=== PATIENT | male | born 1945 | race Caucasian/White ===

== ENCOUNTER 2023-08-31 20:03 | Inpatient (IN) ==
[2023-08-31 20:56] LABS: Alanine Aminotransferase 16 U/L (7-52); Albumin Globulin Ratio 1.8 (0.9-2); Albumin Level 4.8 gm/dl (3.4-5.0); Alkaline Phosphatase 62 U/L (34-104); Anion Gap 12 (3-11); Aspartate Aminotransferase 42 U/L (13-39); Bilirubin,Total 0.8 mg/dl (0.2-1.0); Blood Urea Nitrogen 20 mg/dl (6-23); Carbon Dioxide 24 mmol/L (21-32); Chloride 97 mmol/L (98-107); Est GFR (African American) 97.8 ml/min; Est GFR (Non-African American) 84.4 ml/min; Globulin 2.7 gm/dl (2.5-4.0); Glucose 173 mg/dl (70-99(Fasting)); Lipase 21 U/L (11-82); Potassium 3.6 mmol/L (3.5-5.1); Sodium 133 mmol/L (136-145); Total Protein 7.5 gm/dl (6.0-8.3)
[2023-08-31 21:00] LABS: Basophils # (auto) 0.03 K/uL (0.00-0.20); Basophils % (auto) 0.4 %; Eosinophils # (auto) 0.02 K/uL (0.00-0.50); Eosinophils % (auto) 0.3 %; Hematocrit (blood only) 40.5 % (42.0-52.0); Immature Granulocytes # (auto) 0.01 K/uL (0.01-0.20); Immature Granulocytes % (auto) 0.1 %; Lymphocytes # (auto) 0.59 K/uL (1.20-3.40); Lymphocytes % (auto) 8.5 %; Mean Corpuscular Hgb Conc 34.6 g/dL (32.0-36.0); Mean Platelet Volume 9.9 fL (9.4-12.4); Monocytes # (auto) 0.34 K/uL (0.11-0.59); Monocytes % (auto) 4.9 %; Neutrophils # (auto) 5.99 K/uL (1.40-6.50); Neutrophils % (auto) 85.8 %; Platelet Count 177 K/uL (130-400); RDW Coefficient of Variation 12.7 % (11.5-14.5); RDW Standard Deviation 39.1 fL (36.4-46.3); Red Blood Count 4.82 M/uL (4.70-6.10); White Blood Count 6.98 K/ul (4.8-10.8)
[2023-08-31 23:29] LABS: Appearance Urine Clear (Clear); Bacteria Urine Automated None Seen (None Seen); Bilirubin Urine Negative (Negative); Blood Urine 1+ (Negative); Cast Urine Automated 0-2 /lpf (0-2); Color Urine Yellow; Epithelial Cell Urine Auto 0-2 /hpf (0-2); Glucose Urine UA 2+ (Negative); Ketones Urine 1+ (Negative); Leukocyte Esterase Urine Negative (Negative); Nitrite Urine Negative (Negative); Protein Urine 1+ (Negative); RBC Urine Automated 0-2 /hpf (0-2); Specific Gravity Urine 1.025 (1.000-1.030); Urobilinogen Urine Negative (Negative); WBC Urine Automated 0-5 /hpf (0-5); pH Urine 5.5 (4.5-7.5)
--- NOTE | 2023-08-31 23:48 | Emergency Department Note ---
Impression & Plan Abdominal pain, acute, Volvulus ED Provider Note NAME: LEEANNA [id number] ODETTE AGE: 78 SEX: Male INFORMANT: Patient ED PROVIDER(S): Mor Perales MD CHIEF COMPLAINT: Abdominal pain PLAN: Disposition: Taken emergently to the OR Outpatient prescription management: none Referral: none MEDICAL DECISION MAKING: Patient presented because of acute abdominal pain. His CBC was unremarkable. Minimal elevation of AST. Glucose was mildly elevated at 173. ECG did not show any acute ischemic change. Urinalysis was negative. Due to his pain complaints patient was given a dose of Zofran as well as morphine. He was noted to be hypertensive and stated he did take his medication today. Patient was sent for CT imaging. Pt was found to have a developing obstruction due to a volvulus. Discussed with stat rad radiology. PT reassess. NGT ordered. Consulted with General Surgery employee relations manager, Dr. Millan. She will see patient expeditiously in the ED. Pt was taken emergently to the OR for surgical intervention. I refer you to the EMR for further details. Care/management discussed with: marketing traffic manager Level of care consideration(s): After review of the information above and other included data, I feel the patient requires escalation of care to admission. Triage Nursing notes: reviewed and agree them. Vital Signs: reviewed and remarkable for HTN Additional History obtained from: none Chronic Medical/Social Conditions affecting care: incarceration Prior/ Outside/ External records reviewed: none Differential Diagnosis: Appendicitis, infections, diverticulitis, UTI, obstruction, mesenteric ischemia, aortic pathology, inflammatory bowel disease, renal colic, PUD, pancreatitis, biliary pathology, hernia, volvulus, constipation, as well as other pathologies. Diagnostics, independently interpreted by me: ECG: Twelve-lead ECG was sinus rhythm with PACs at 67 bpm. LVH. Decreased amplitude in the T wave anteriorly when compared to 17 Oct 1999. Cardiac Monitoring: Cardiac monitoring ordered by me: The patient was placed on continuous cardiac monitoring and observed. It revealed a normal sinus rhythm at 78 beats per minute without ectopy or evidence of dysrhythmia. Medical decision rules: none Imaging studies: CT as above HPI: 78 year old Male arrives for evaluation of abdominal pain. This started today per the patient and is in the mid abdomen. The patient also notes the following associated symptoms, 2 days since last normal bowel movement. Patient did have a small bowel movement today but states that is not unusual. He does have some mild nausea. The patient has found no relieving factors. Current pain is rated as 6/10. Patient notes hernia repair but no other significant intra-abdominal surgeries. Patient does note that he feels somewhat dizzy today due to the pain. Pt denies LOC, headache, fevers, chills, diaphoresis, visual changes, neck pain, chest pain, breathing difficulties, vomiting back pain, melena, hematochezia, urinary symptoms, numbness, weakness, lymphadenopathy, rash, or other complaints. . PAST MEDICAL HISTORY: See Below, blood pressure PAST SURGICAL HISTORY: See Below, hernia repair SOCIAL HISTORY: See Below, incarcerated HOME MEDICATIONS: See Below ALLERGIES: See Below VITALS: See Below PHYSICAL EXAMINATION: GENERAL: Awake, alert, well-appearing, in no distress HENT: Normocephalic, atraumatic. Oropharynx unremarkable. EYES: Normal conjunctiva. Sclera non-icteric. NECK: Inspection normal. Non-tender. Supple. No nuchal rigidity. FROM. No masses. RESPIRATORY: Clear to auscultation. No wheezes. No rales. Normal respiratory effort. CARDIAC: Normal rate. Normal rhythm. No murmurs. No rubs. Extremities warm and well perfused. Pulses equal. No JVD. GI: Soft, non-distended. No epigastric/supraumbilical tenderness to palpation. No rebound or guarding. No masses. RECTAL: Deferred. MUSCULOSKELETAL: Atraumatic. Chest examination reveals no tenderness. The back is symmetrical on inspection without obvious abnormality. There is no CVA tenderness to palpation. No joint edema. LOWER EXTREMITIES: Calves are equal size bilaterally and non-tender. 1+ pedal edema. No discoloration. NEURO: Normal sensorium. No sensory or motor deficits noted. SKIN: No rash or jaundice noted. PROCEDURES: none CRITICAL CARE: I have personally spent 30 minutes of critical care time in the direct management of this patient. This includes bedside care, interpretation of diagnostic studies, and testing, discussion with consultants, patient, and other required patient management activities. These minutes are in excess of all separately billable procedures. OBSERVATION NOTE: none Past Med/Surg History Medical History (Updated 09/02/23 @ 21:04 by Mor Perales MD) Throat cancer High cholesterol High blood pressure Social History Smoking Status: Former smoker Hx Alcohol Use: No Hx Substance Use: No Preferred Language: Yi Communication Ability: Effective Organic Extractions Technician Required: No Beliefs That Will Affect Care: None Feels Safe at Home: Yes Allergies Allergies Allergy/AdvReac Type Severity Reaction Status Date / Time No Known Allergies Allergy Verified 01/01/19 11:57 Home Meds Home Medications Medication Instructions Recorded Confirmed amlodipine 10 mg tablet 10 mg PO DAILY 01/01/19 09/01/23 atorvastatin 10 mg tablet 10 mg PO HS 01/01/19 09/01/23 lisinopril 20 1 tab PO DAILY 01/01/19 09/01/23 mg-hydrochlorothiazide 25 mg tablet metoprolol tartrate 25 mg tablet 12.5 mg PO BID 01/01/19 09/01/23 naproxen 500 mg tablet,delayed 500 mg PO DAILY Pain 01/01/19 09/01/23 release omeprazole 20 mg capsule,delayed 20 mg PO DAILY 01/01/19 09/01/23 release tamsulosin 0.4 mg capsule 0.4 mg PO DAILY 01/01/19 09/01/23 Bacmin 1 PO DAILY 09/01/23 Lasix 20 mg PO DAILY 09/01/23 09/01/23 Results & Data (ED) Vital Signs Vital Signs - 24 hr 08/31/23 20:08 08/31/23 23:13 08/31/23 23:13 Temperature 36 C L Temperature Source Temporal Artery Scan Pulse Rate 68 94 H Pulse Rate [Apical] 89 Respiratory Rate 19 18 22 Respiratory Effort / Characteristics Non-Labored Spontaneous Respiratory Depth Normal Blood Pressure 147/86 H Blood Pressure [Right Arm] 204/119 H Blood Pressure Mean 106 Blood Pressure Mean [Right Arm] 147 Pulse Oximetry 96 97 97 Oxygen Delivery Method Room Air Room Air Room Air Sepsis Recent Fever Within 48 Hours No Sepsis New/Unexplained Change in Mental Status N/A Sepsis Action Taken by Nursing No Action Required 08/31/23 23:24 Temperature Temperature Source Pulse Rate 78 Pulse Rate [Apical] Respiratory Rate Respiratory Effort / Characteristics Respiratory Depth Blood Pressure Blood Pressure [Right Arm] Blood Pressure Mean Blood Pressure Mean [Right Arm] Pulse Oximetry Oxygen Delivery Method Sepsis Recent Fever Within 48 Hours Sepsis New/Unexplained Change in Mental Status Sepsis Action Taken by Nursing Laboratory Data 09/02/23 11:58 09/02/23 15:39 Lab Results 08/31/23 08/31/23 Range/Units 20:23 23:15 WBC 6.98 (4.8-10.8) K/ul RBC 4.82 (4.70-6.10) M/uL Hgb 14.0 (14.0-18.0) g/dl Hct 40.5 L (42.0-52.0) % MCV 84.0 (80.0-100.0) fL MCH 29.0 (25.0-34.0) pg MCHC 34.6 (32.0-36.0) g/dL RDW Std Deviation 39.1 (36.4-46.3) fL RDW Coeff of Shanelle 12.7 (11.5-14.5) % Plt Count 177 (130-400) K/uL MPV 9.9 (9.4-12.4) fL Immature Gran % (Auto) 0.1 % Neut % (Auto) 85.8 % Lymph % (Auto) 8.5 % Bowman % (Auto) 4.9 % Eos % (Auto) 0.3 % Baso % (Auto) 0.4 % Neut # (Auto) 5.99 (1.40-6.50) K/uL Lymph # (Auto) 0.59 L (1.20-3.40) K/uL Bowman # (Auto) 0.34 (0.11-0.59) K/uL Eos # (Auto) 0.02 (0.00-0.50) K/uL Baso # (Auto) 0.03 (0.00-0.20) K/uL Immature Gran # (Auto) 0.01 (0.01-0.20) K/uL Sodium 133 L (136-145) mmol/L Potassium 3.6 (3.5-5.1) mmol/L Chloride 97 L (98-107) mmol/L Carbon Dioxide 24 (21-32) mmol/L Anion Gap 12 H (3-11) BUN 20 (6-23) mg/dl Creatinine 0.80 (0.6-1.4) mg/dl Est Cr Clr Drug Dosing Not Reportable Est GFR ( Amer) 97.8 ml/min Est GFR (Non-Af Amer) 84.4 ml/min BUN/Creatinine Ratio 25.0 H (10-20) Glucose 173 H (70-99(Fasting)) mg/dl Calcium 10.0 (8.6-10.3) mg/dl Magnesium 2.2 (1.7-2.4) mg/dl Total Bilirubin 0.8 (0.2-1.0) mg/dl AST 42 H (13-39) U/L ALT 16 (7-52) U/L Alkaline Phosphatase 62 (34-104) U/L Total Protein 7.5 (6.0-8.3) gm/dl Albumin 4.8 (3.4-5.0) gm/dl Globulin 2.7 (2.5-4.0) gm/dl Albumin/Globulin Ratio 1.8 (0.9-2) Lipase 21 (11-82) U/L TSH 4.629 H (0.300-4.500) uIu/ml Free T4 1.18 (0.61-1.60) ng/dl Urine Color Yellow Urine Appearance Clear (Clear) Urine pH 5.5 (4.5-7.5) Ur Specific [place] 1.025 (1.000-1.030) Urine Protein 1+ H (Negative) Urine Glucose (UA) 2+ H (Negative) Urine Ketones 1+ H (Negative) Urine Blood 1+ H (Negative) Urine Nitrite Negative (Negative) Urine Bilirubin Negative (Negative) Urine Urobilinogen Negative (Negative) Ur Leukocyte Esterase Negative (Negative) Urine WBC (Auto) 0-5 (0-5) /hpf Urine RBC (Auto) 0-2 (0-2) /hpf U Hyaline Cast (Auto) 0-2 (0-2) /lpf U Epithel Cells (Auto) 0-2 (0-2) /hpf Urine Bacteria (Auto) None Seen (None Seen) Administered Medications Atorvastatin Calcium (Atorvastatin 10 Mg Tab) 10 mg PO HS ZULEIMA Stop: 10/02/23 20:59 Last Admin: 09/02/23 20:23 Dose: 10 mg Documented By: [id number] Heparin Sodium (Porcine) (Heparin Sod 5,000 Unit/0.5 Ml Vial) 5,000 units SQ Q12 ZULEIMA Stop: 10/01/23 08:59 Last Admin: 09/02/23 20:24 Dose: 5,000 units Documented By: [id number] Admin: 09/02/23 08:51 Dose: 5,000 units Documented By: AZUL Co-signed By: ERIC Admin: 09/01/23 20:48 Dose: 5,000 units Documented By: Admin: 09/01/23 08:25 Dose: 5,000 units Documented By: Piperacillin Sod/Tazobactam (Sod 4.5 gm/ Dextrose) 100 mls @ 25 mls/hr IV Q8H ZULEIMA; Protocol Stop: 09/05/23 07:59 Last Infusion: 09/02/23 19:59 Dose: Infused Documented By: [id number] Admin: 09/02/23 15:49 Dose: 25 mls/hr Documented By: Infusion: 09/02/23 12:51 Dose: Infused Documented By: Admin: 09/02/23 08:49 Dose: 25 mls/hr Documented By: AZUL Co-signed By: ERIC Infusion: 09/02/23 04:04 Dose: Infused Documented By: Admin: 09/02/23 00:08 Dose: 25 mls/hr Documented By: Infusion: 09/01/23 19:44 Dose: Infused Documented By: Admin: 09/01/23 16:12 Dose: 25 mls/hr Documented By: Infusion: 09/01/23 11:17 Dose: Infused Documented By: Admin: 09/01/23 07:17 Dose: 25 mls/hr Documented By: Metoprolol Tartrate (Metoprolol Tartrate 25 Mg Tab) 12.5 mg PO BID ZULEIMA Stop: 10/02/23 20:59 Last Admin: 09/02/23 20:23 Dose: 12.5 mg Documented By: [id number] Sodium Zirconium Cyclosilicate (Sodium Zirconium Cyclosilicate 10 Gm Packet) 10 gm PO TID ZULEIMA Stop: 09/04/23 14:01 Last Admin: 09/02/23 20:25 Dose: 10 gm Documented By: [id number] Discontinued Medications Bupivacaine HCl (Bupivacaine 0.5 % 5 Mg/1 Ml Mpf 30ml Vial) Confirm Administered Dose 60 ml .ROUTE .STK-MED ONE Stop: 09/01/23 02:50 Last Admin: 09/01/23 04:10 Dose: 40 ml Documented By: VIKY Dextrose (Dextrose 50% 50 Ml Syringe) 50 ml IV NOW STA Stop: 09/02/23 14:53 Last Admin: 09/02/23 15:19 Dose: 50 ml Documented By: Furosemide (Furosemide 40 Mg/4 Ml Vial) 40 mg IV ONE ONE Stop: 09/01/23 08:41 Last Admin: 09/01/23 09:02 Dose: 40 mg Documented By: MS Furosemide (Furosemide 40 Mg/4 Ml Vial) 40 mg IV ONE ONE Stop: 09/02/23 15:28 Last Admin: 09/02/23 15:48 Dose: 40 mg Documented By: Piperacillin Sod/Tazobactam (Sod 4.5 gm/ Dextrose) 100 mls @ 200 mls/hr IV NOW ONE; Protocol Stop: 09/01/23 02:25 Last Infusion: 09/01/23 05:48 Dose: Infused Documented By: Admin: 09/01/23 02:22 Dose: 200 mls/hr Documented By: [id number] Metronidazole (Flagyl) 500 mg in 100 mls @ 100 mls/hr IV NOW STA; Protocol Stop: 09/01/23 02:55 Last Admin: 09/01/23 07:07 Dose: Not Given Documented By: MS Pantoprazole Sodium 40 mg/ (Syringe) 10 mls @ 5 mls/min IV DAILY@1100 ZULEIMA Stop: 10/01/23 10:59 Last Admin: 09/02/23 11:06 Dose: 5 mls/min Documented By: AZUL Co-signed By: ERIC Admin: 09/01/23 10:52 Dose: 5 mls/min Documented By: MS Potassium Chloride/Sodium Chloride (Normal Saline W/20 Meq Kcl) 20 meq in 1,000 mls @ 50 mls/hr IV .Q20H ZULEIMA; Protocol Stop: 10/01/23 06:14 Last Infusion: 09/01/23 10:49 Dose: Infused Documented By: Admin: 09/01/23 08:24 Dose: 50 mls/hr Documented By: MS Sodium Chloride (Nss) 1,000 mls @ 100 mls/hr IV .Q10H ZULEIMA Stop: 09/01/23 21:29 Last Admin: 09/02/23 15:17 Dose: 100 mls/hr Documented By: Infusion: 09/02/23 15:17 Dose: Infused Documented By: Admin: 09/02/23 06:16 Dose: 50 mls/hr Documented By: Infusion: 09/02/23 06:16 Dose: Infused Documented By: Admin: 09/01/23 11:47 Dose: 50 mls/hr Documented By: Insulin Human Regular 10 units (/ Syringe) 10 mls @ 3 mls/sec IV ONE STA Stop: 09/02/23 14:58 Last Admin: 09/02/23 15:19 Dose: 3 mls/sec Documented By: Co-signed By: ELVIA Ioversol (Optiray 320 100ml) 100 ml IV ONCE ONE Stop: 09/01/23 00:03 Last Admin: 09/01/23 00:03 Dose: 91 ml Documented By: ROCHELLE Metoprolol Tartrate (Metoprolol Tartrate 1 Mg/Ml Vial) 2.5 mg IV NOW STA Stop: 09/01/23 05:14 Last Admin: 09/01/23 05:20 Dose: 2.5 mg Documented By: TERI Metoprolol Tartrate (Metoprolol Tartrate 1 Mg/Ml Vial) Confirm Administered Dose 5 mg IV .STK-MED ONE Stop: 09/01/23 05:20 Last Admin: 09/01/23 05:22 Dose: Not Given Documented By: TERI Metoprolol Tartrate (Metoprolol Tartrate 1 Mg/Ml Vial) 2.5 mg IV Q6 ZULEIMA Stop: 10/01/23 11:59 Last Admin: 09/02/23 11:49 Dose: 2.5 mg Documented By: Admin: 09/02/23 06:16 Dose: Not Given Documented By: Admin: 09/02/23 00:09 Dose: 2.5 mg Documented By: Admin: 09/01/23 18:00 Dose: 2.5 mg Documented By: Admin: 09/01/23 11:43 Dose: Not Given Documented By: Morphine Sulfate (Morphine Sulfate 2 Mg/Ml Carp) 2 mg IV NOW STA Stop: 08/31/23 23:39 Last Admin: 09/01/23 00:49 Dose: 2 mg Documented By: OLY Ondansetron HCl (Ondansetron Inj 2 Mg/Ml 2 Ml Vial) 4 mg IV NOW STA Stop: 08/31/23 23:39 Last Admin: 09/01/23 00:49 Dose: 4 mg Documented By: OLY Discharge Plan Visit Data Chief Complaint: Abdominal Pain Stated Complaint: LIGHTHEADED, ABD CRAMPS ED Provider: Mor Perales Discharge Problem: Abdominal pain, acute, Volvulus Patient Disposition: Admitted As Inpatient Discharge Instructions Interventions: ED Discharge Assessment Last Done: 09/01/23 01:54
[2023-09-01] MEDS: OPTIRAY 320 100ml IV ONE (00:03)
--- NOTE | 2023-09-01 00:40 | CT Scan Report ---
Exam(s): CT ABDOMEN + PELVIS With Contrast IV Amt: 91 ML OPTIRAY 320 EXAM: CT Abdomen and Pelvis With Intravenous Contrast CLINICAL HISTORY: mid abd pain. TECHNIQUE: Axial computed tomography images of the abdomen and pelvis with intravenous contrast. CTDI is 27.33 mGy and DLP is 1333.36 mGy-cm. Automated exposure control was utilized for the study. A dose lowering technique was utilized adhering to the principles of ALARA. CONTRAST: Patient received 91 ML OPTIRAY 320 of IV contrast COMPARISON: No relevant prior studies available. FINDINGS: Lung bases: Unremarkable. No mass. No consolidation. Mediastinum: Hiatal hernia. ABDOMEN: Liver: An 11 mm hepatic cyst is noted involving segment IVb the junction of segment 5. Gallbladder and bile ducts: A noncalcified gallstone is noted in the fundus of the gallbladder measuring 1.[address] evidence for gallbladder wall thickening or biliary dilatation. Pancreas: Unremarkable. No mass. No ductal dilation. Spleen: Unremarkable. No splenomegaly. Adrenals: Unremarkable. No mass. Kidneys and ureters: The kidneys demonstrate normal enhancement without hydronephrosis or pyelonephritis. No obstructive nephrolithiasis. Cortical cysts are noted bilaterally with the largest cyst in the anterior midpole measuring 14 mm. Stomach and bowel: Abnormal fluid dilation of several distal small bowel loops in the abdomen and pelvis. In addition, an abnormally fluid dilated cecum and proximal ascending colon is identified abnormally located in the left upper quadrant, measuring up to 10.1 cm in diameter. There is abnormal swirling of the mesenteric vasculature with narrowing of the superior mesenteric vein at this level with asymmetric mesenteric edema involving the abnormal fluid dilated distal small bowel and proximal colon. Postsurgical changes involving a small bowel loop involving the left inferior abdomen. PELVIS: Appendix: Not clearly delineated Bladder: Unremarkable. No mass. Reproductive: Unremarkable as visualized. ABDOMEN and PELVIS: Intraperitoneal space: Mild predominantly perihepatic fluid. No loculation. Mild free fluid adjacent to the abnormal small bowel loops in the abdomen. No free air. Bones/joints: Multilevel degenerative changes noted throughout the included thoracolumbar spine. No acute osseous abnormality. No dislocation. Soft tissues: Mild free fluid extends into the right inguinal hernia. The overlying soft tissues demonstrate mild subcutaneous fat stranding suggesting edema. Vasculature: Atherosclerotic calcification of the aorta and iliac arteries. Lymph nodes: Unremarkable. No enlarged lymph nodes. IMPRESSION: Abnormal fluid dilation of several distal small bowel loops in the abdomen and pelvis. In addition, an abnormally fluid dilated cecum and proximal ascending colon is identified abnormally located in the left upper quadrant, measuring up to 10.1 cm in diameter. There is abnormal swirling of the mesenteric vasculature with narrowing of the superior mesenteric vein at this level with asymmetric mesenteric edema involving the abnormal fluid dilated distal small bowel and proximal colon. 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 No pneumatosis or pneumoperitoneum noted this time. Emergent surgical consultation is recommended however. Communications: Call Doctor Volvulus Electronically signed by: Randy Ying MD 09/01/23 00:38 AM
[2023-09-01] MEDS: MoRPHine SULFATE 2 MG/ML CARP IV STA (00:49)
[2023-09-01] MEDS: ONDANSETRON INJ 2 MG/ML 2 ML VIAL IV STA (00:49)
--- NOTE | 2023-09-01 01:08 | Anesthesiology Consultation ---
Date of Service September 01, 2023 Assessment & Plan (1) Encounter for pre-operative examination: Chart Review Chart Review: Patient NOT seen in Pre Admission Testing Consults Requested none History Height/Weight Height: 5 ft 10 in Weight: 96.5 kg Allergies Allergy/AdvReac Type Severity Reaction Status Date / Time No Known Allergies Allergy Verified 01/01/19 11:57 Medications Home Medications Medication Instructions Recorded Confirmed Last Taken amlodipine 10 mg tablet 10 mg PO DAILY 01/01/19 01/01/19 Unknown aspirin 81 mg tablet,delayed 81 mg PO DAILY 01/01/19 01/01/19 Unknown release atorvastatin 10 mg tablet 10 mg PO HS 01/01/19 01/01/19 Unknown calcium polycarbophil 625 mg 625 mg PO BID 01/01/19 01/01/19 Unknown tablet (Fiber Laxative (calcium polycarbophil)) lisinopril 20 1 tab PO DAILY 01/01/19 01/01/19 Unknown mg-hydrochlorothiazide 25 mg tablet metoprolol tartrate 25 mg tablet 12.5 mg PO BID 01/01/19 01/01/19 Unknown naproxen 500 mg tablet,delayed 500 mg PO DAILY PRN Pain 01/01/19 01/01/19 Unknown release omeprazole 20 mg capsule,delayed 20 mg PO DAILY 01/01/19 01/01/19 Unknown release tamsulosin 0.4 mg capsule 0.4 mg PO DAILY 01/01/19 01/01/19 Unknown Past Medical History Medical History (Updated 09/01/23 @ 01:08 by Pardeep Fountain DO) Throat cancer High cholesterol High blood pressure Social History Smoking Status: Unknown if ever smoked Physical Exam Vital Signs Last Vital Signs Temp 96.8 F L 08/31/23 20:08 Pulse 78 08/31/23 23:24 Resp 22 08/31/23 23:13 BP 204/119 H 08/31/23 23:13 Pulse Ox 97 08/31/23 23:13 O2 Del Method Room Air 08/31/23 23:13 Testing Laboratory Results 08/31/23 20:23 08/31/23 20:23 Urine Color Yellow 08/31/23 23:15 Urine Appearance Clear (Clear) 08/31/23 23:15 Urine pH 5.5 (4.5-7.5) 08/31/23 23:15 Ur Specific Nelson 1.025 (1.000-1.030) 08/31/23 23:15 Urine Protein 1+ (Negative) H 08/31/23 23:15 Urine Glucose (UA) 2+ (Negative) H 08/31/23 23:15 Urine Ketones 1+ (Negative) H 08/31/23 23:15 Urine Nitrite Negative (Negative) 08/31/23 23:15 Ur Leukocyte Esterase Negative (Negative) 08/31/23 23:15 Urine WBC (Auto) 0-5 /hpf (0-5) 08/31/23 23:15 Urine RBC (Auto) 0-2 /hpf (0-2) 08/31/23 23:15 U Hyaline Cast (Auto) 0-2 /lpf (0-2) 08/31/23 23:15 U Epithel Cells (Auto) 0-2 /hpf (0-2) 08/31/23 23:15 Urine Bacteria (Auto) None Seen (None Seen) 08/31/23 23:15
[2023-09-01] MEDS ORDERED: fentaNYL citrate PF 100 MCG/2 ML VIAL ONE ×2 (01:24→02:36)
[2023-09-01] MEDS ORDERED: MIDAZOLAM HCL 1 MG/ML 2ML VIAL ONE (01:24)
[2023-09-01] MEDS ORDERED: SUCCINYLCHOLINE CHLORIDE 20 MG/ML 10 ML VIAL IV ONE (01:24)
[2023-09-01] MEDS ORDERED: ROCURONIUM BROMIDE 10 MG/ML 5 ML VIAL IV ONE (01:24)
[2023-09-01] MEDS ORDERED: PROPOFOL IV EMULSION 10 MG/ML 20 ML VIAL IV ONE (01:24)
[2023-09-01] MEDS ORDERED: LIDOCAINE 2% 2 ML VIAL/AMP(20MG/ML) INFIL ONE (01:24)
[2023-09-01] MEDS ORDERED: fentaNYL citrate PF 100 MCG/2 ML VIAL IV PRN (01:36)
[2023-09-01] MEDS ORDERED: ONDANSETRON INJ 2 MG/ML 2 ML VIAL IV PRN ×2 (01:36→05:47)
[2023-09-01] MEDS ORDERED: ePHEDrine sulfate 50 MG/ML AMP IV PRN (01:36)
[2023-09-01] MEDS ORDERED: ATROPINE SULFATE 0.1 MG/ML 10ML SYR IV PRN (01:36)
--- NOTE | 2023-09-01 01:49 | History & Physical Report ---
Date of Service September 01, 2023 Assessment & Plan (1) Volvulus of intestine: Plan: 78-year-old man who presents with acute onset abdominal pain with imaging suggestive of a volvulus with his cecum lying in the left upper quadrant. We discussed exploratory laparotomy with possible bowel resection and possible ostomy. We reviewed risks of , heart attack, stroke, bleeding, infection, injury to other structures, leakage of the intestine, and postoperative ileus. He has consented to proceed. He will be taken urgently to the operating room tonight. Consent was signed. History of Present Illness Chief Complaint: abdominal pain Primary Care Provider: TUNG Benton Ridgecassidy 78-year-old man with a history of a prior left inguinal hernia repair who presents to the emergency room complaining of the acute onset of central abdominal pain. The pain was severe intensity. It would come in waves. It was associated with nausea and vomiting. The pain was worse with movement. Taking a deep breath hurt. There were no relieving factors. He has noted decreased bowel movements in the last day or 2. His appetite is decreased. He has never had any similar episodes in the past. He denies any fevers or chills. CT scan in the emergency room room reveals evidence of a small bowel volvulus. Allergies Allergy/AdvReac Type Severity Reaction Status Date / Time No Known Allergies Allergy Verified 01/01/19 11:57 Home Medications Medication Instructions Recorded Confirmed Type amlodipine 10 mg tablet 10 mg PO DAILY 01/01/19 01/01/19 History aspirin 81 mg tablet,delayed 81 mg PO DAILY 01/01/19 01/01/19 History release atorvastatin 10 mg tablet 10 mg PO HS 01/01/19 01/01/19 History calcium polycarbophil 625 mg 625 mg PO BID 01/01/19 01/01/19 History tablet (Fiber Laxative (calcium polycarbophil)) lisinopril 20 1 tab PO DAILY 01/01/19 01/01/19 History mg-hydrochlorothiazide 25 mg tablet metoprolol tartrate 25 mg tablet 12.5 mg PO BID 01/01/19 01/01/19 History naproxen 500 mg tablet,delayed 500 mg PO DAILY PRN Pain 01/01/19 01/01/19 History release omeprazole 20 mg capsule,delayed 20 mg PO DAILY 01/01/19 01/01/19 History release tamsulosin 0.4 mg capsule 0.4 mg PO DAILY 01/01/19 01/01/19 History Past Med/Surg History Medical History (Updated 09/01/23 @ 01:55 by Kathleen Millan MD) Throat cancer High cholesterol High blood pressure Social History Smoking Status: Unknown if ever smoked Preferred Language: Lithuanian Feels Safe at Home: Yes Review of Systems Review of Systems: All systems reviewed & are unremarkable except as noted in HPI & below Ear, Nose, Mouth, Throat: s/p treatment for throat cancer Physical Exam Constitutional: WD/WN, vitals as above Eyes: + conjunctival abnormality (reddened) Neck: normal visual inspection and trachea midline Respiratory: normal respiratory effort, lungs clear to auscultation Cardiovascular: RRR, no murmur, no edema Gastrointestinal (Abdomen): Inspection/Auscultation: + abdomen distended and + hypoactive bowel sounds Percussion/Palpation: + abdomen tender (centrally), + guarding and abdomen soft Musculoskeletal: Extremities: extremities normal to inspection Neurologic: awake; no focal motor deficits Psychiatric: A+Ox3, euthymic affect Results & Data Results & Data Vital Signs (Past 12 Hours) Vital Signs Temp Pulse Pulse Resp BP BP Pulse Ox 09/01/23 01:00 88 19 176/108 H 97 08/31/23 23:24 78 08/31/23 23:13 89 22 204/119 H 97 08/31/23 23:13 94 H 18 97 08/31/23 20:08 36 C L 68 19 147/86 H 96 O2 Del Method 09/01/23 01:00 Room Air 08/31/23 23:24 08/31/23 23:13 Room Air 08/31/23 23:13 Room Air 08/31/23 20:08 Room Air Laboratory Results 08/31/23 08/31/23 Range/Units 23:15 20:23 WBC 6.98 (4.8-10.8) K/ul RBC 4.82 (4.70-6.10) M/uL Hgb 14.0 (14.0-18.0) g/dl Hct 40.5 L (42.0-52.0) % MCV 84.0 (80.0-100.0) fL MCH 29.0 (25.0-34.0) pg MCHC 34.6 (32.0-36.0) g/dL RDW Std Deviation 39.1 (36.4-46.3) fL RDW Coeff of Shanelle 12.7 (11.5-14.5) % Plt Count 177 (130-400) K/uL MPV 9.9 (9.4-12.4) fL Immature Gran % (Auto) 0.1 % Neut % (Auto) 85.8 % Lymph % (Auto) 8.5 % Gray % (Auto) 4.9 % Eos % (Auto) 0.3 % Baso % (Auto) 0.4 % Neut # (Auto) 5.99 (1.40-6.50) K/uL Lymph # (Auto) 0.59 L (1.20-3.40) K/uL Gray # (Auto) 0.34 (0.11-0.59) K/uL Eos # (Auto) 0.02 (0.00-0.50) K/uL Baso # (Auto) 0.03 (0.00-0.20) K/uL Immature Gran # (Auto) 0.01 (0.01-0.20) K/uL Sodium 133 L (136-145) mmol/L Potassium 3.6 (3.5-5.1) mmol/L Chloride 97 L (98-107) mmol/L Carbon Dioxide 24 (21-32) mmol/L Anion Gap 12 H (3-11) BUN 20 (6-23) mg/dl Creatinine 0.80 (0.6-1.4) mg/dl Est Cr Clr Drug Dosing Not Reportable Est GFR ( Amer) 97.8 ml/min Est GFR (Non-Af Amer) 84.4 ml/min BUN/Creatinine Ratio 25.0 H (10-20) Glucose 173 H (70-99(Fasting)) mg/dl Calcium 10.0 (8.6-10.3) mg/dl Total Bilirubin 0.8 (0.2-1.0) mg/dl AST 42 H (13-39) U/L ALT 16 (7-52) U/L Alkaline Phosphatase 62 (34-104) U/L Total Protein 7.5 (6.0-8.3) gm/dl Albumin 4.8 (3.4-5.0) gm/dl Globulin 2.7 (2.5-4.0) gm/dl Albumin/Globulin Ratio 1.8 (0.9-2) Lipase 21 (11-82) U/L Urine Color Yellow Urine Appearance Clear (Clear) Urine pH 5.5 (4.5-7.5) Ur Specific [place] 1.025 (1.000-1.030) Urine Protein 1+ H (Negative) Urine Glucose (UA) 2+ H (Negative) Urine Ketones 1+ H (Negative) Urine Blood 1+ H (Negative) Urine Nitrite Negative (Negative) Urine Bilirubin Negative (Negative) Urine Urobilinogen Negative (Negative) Ur Leukocyte Esterase Negative (Negative) Urine WBC (Auto) 0-5 (0-5) /hpf Urine RBC (Auto) 0-2 (0-2) /hpf U Hyaline Cast (Auto) 0-2 (0-2) /lpf U Epithel Cells (Auto) 0-2 (0-2) /hpf Urine Bacteria (Auto) None Seen (None Seen) Diagnostic Findings EXAM: CT Abdomen and Pelvis With Intravenous Contrast CLINICAL HISTORY: mid abd pain. TECHNIQUE: Axial computed tomography images of the abdomen and pelvis with intravenous contrast. CTDI is 27.33 mGy and DLP is 1333.36 mGy-cm. Automated exposure control was utilized for the study. A dose lowering technique was utilized adhering to the principles of ALARA. CONTRAST: Patient received 91 ML OPTIRAY 320 of IV contrast COMPARISON: No relevant prior studies available. FINDINGS: Lung bases: Unremarkable. No mass. No consolidation. Mediastinum: Hiatal hernia. ABDOMEN: Liver: An 11 mm hepatic cyst is noted involving segment IVb the junction of segment 5. Gallbladder and bile ducts: A noncalcified gallstone is noted in the fundus of the gallbladder measuring 1.[address] evidence for gallbladder wall thickening or biliary dilatation. Pancreas: Unremarkable. No mass. No ductal dilation. Spleen: Unremarkable. No splenomegaly. Adrenals: Unremarkable. No mass. Kidneys and ureters: The kidneys demonstrate normal enhancement without hydronephrosis or pyelonephritis. No obstructive nephrolithiasis. Cortical cysts are noted bilaterally with the largest cyst in the anterior midpole measuring 14 mm. Stomach and bowel: Abnormal fluid dilation of several distal small bowel loops in the abdomen and pelvis. In addition, an abnormally fluid dilated cecum and proximal ascending colon is identified abnormally located in the left upper quadrant, measuring up to 10.1 cm in diameter. There is abnormal swirling of the mesenteric vasculature with narrowing of the superior mesenteric vein at this level with asymmetric mesenteric edema involving the abnormal fluid dilated distal small bowel and proximal colon. Postsurgical changes involving a small bowel loop involving the left inferior abdomen. PELVIS: Appendix: Not clearly delineated Bladder: Unremarkable. No mass. Reproductive: Unremarkable as visualized. ABDOMEN and PELVIS: Intraperitoneal space: Mild predominantly perihepatic fluid. No loculation. Mild free fluid adjacent to the abnormal small bowel loops in the abdomen. No free air. Bones/joints: Multilevel degenerative changes noted throughout the included thoracolumbar spine. No acute osseous abnormality. No dislocation. Soft tissues: Mild free fluid extends into the right inguinal hernia. The overlying soft tissues demonstrate mild subcutaneous fat stranding suggesting edema. Vasculature: Atherosclerotic calcification of the aorta and iliac arteries. Lymph nodes: Unremarkable. No enlarged lymph nodes. IMPRESSION: Abnormal fluid dilation of several distal small bowel loops in the abdomen and pelvis. In addition, an abnormally fluid dilated cecum and proximal ascending colon is identified abnormally located in the left upper quadrant, measuring up to 10.1 cm in diameter. There is abnormal swirling of the mesenteric vasculature with narrowing of the superior mesenteric vein at this level with asymmetric mesenteric edema involving the abnormal fluid dilated distal small bowel and proximal colon. 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 No pneumatosis or pneumoperitoneum noted this time. Emergent surgical consultation is recommended however.
[2023-09-01] MEDS: PIPERACILLIN/TAZOBACTAM 4.5 GM in DEXTROSE 5% MINI-B 100 ML IV ONE (02:22)
[2023-09-01] MEDS ORDERED: VASOPRESSIN 20 UNIT/ML VIAL ONE (02:38)
[2023-09-01] MEDS ORDERED: PHENYLEPHRINE 100MCG/ML 10ML SYR IV ONE (02:38)
[2023-09-01] MEDS ORDERED: ePHEDrine sulfate 50 MG/5 ML SYR ONE (02:38)
[2023-09-01] MEDS ORDERED: SUGAMMADEX SODIUM 200 MG/2 ML VIAL IV ONE (03:57)
[2023-09-01] MEDS: BUPIVACAINE 0.5 % 5 MG/1 ML MPF 30ML VIAL ONE (04:10)
--- NOTE | 2023-09-01 04:27 | Operative Report ---
Post Operative Report Pre & Post Diagnosis Operation Date: 09/01/23 01:20 Pre-Op Diagnosis: Intestinal Volvulus Post-Op Diagnosis: cecal Volvulus I identified the patient and participated in the time-out.: Yes Procedure Operation Date: 09/01/23 01:20 Actual Procedures p Exploratory Laparotomy, Resection Right Colon of with Reanastomosis - Kathleen Millan MD Surgeon Kathleen Millan MD Channel Manager none Estimated Blood Loss 20 Findings Consistent with Post-Op Diagnosis Cecal volvulus. Evidence of prior partial small bowel resection. Adhesive bands to right upper quadrant. over 1 L cloudy fluid in abdomen Fluids 1300 cc Specimens right colon/ appendix Drains none Anesthesia Type General Complications none Disposition Accompanied Patient To Recovery: No Indications 78-year-old man who presented from [facility] with abdominal pain and lightheadedness. Imaging was suggestive of intestinal volvulus. He was consented for exploratory laparotomy and possible bowel resection. He denied any prior abdominal surgery although he did appear to have a very faint scar around the umbilicus. Description of Procedure The patient received Zosyn preoperatively he underwent placement of sequential compression devices and placement of a Torres catheter. He underwent induction of general endotracheal anesthesia. His abdomen was sterilely prepped and draped. A midline incision was made and the abdomen entered inferiorly as evidence of prior suture was noted around the umbilicus. Once the abdomen was sharply entered there was significant intra-abdominal fluid which was suctioned. The culture of this fluid was taken. The incision was then extended superiorly. The bowel was noted to be bluish tinged. The cecum was noted to be extremely distended and up over the stomach. This was reduced and on twisted. There were some adhesive bands coursing across the hepatic flexure of the colon from this volvulus. These were taken down. The mesentery of the small bowel was inspected to make sure there was no further twisting. The small bowel was run and evidence of a prior partial bowel resection was noted. The spot was chosen for division on the terminal ileum and this was divided with a firing of the JONNIE blue load 60 stapler. A spot was chosen for division up on the right colon below the hepatic flexure and this was divided with a firing of the JONNIE 60 stapler. The hepatic flexure was partially mobilized to allow for free air anastomosis. The laps were placed around the bowel. Bowel clamps were used. A [id number] functional end-to-end anastomosis was then created by using silk stay sutures to hold the bowel together. Enterotomies were made in both the terminal ileum and right colon and a JONNIE 80 stapler fired through this to create a new lumen. The defect itself was closed with a firing of the TA 90 stapler. The ends were oversewn with silk stitches. The mesenteric defect was closed with silk stitches. The the abdomen was irrigated with warm saline until the effluent was clear. The incision was then closed with 2 running looped #1 PDS sutures over a fish retractor. The 40 cc of half percent Marcaine were injected into the incision for local anesthesia. The nasogastric tube was checked to be in appropriate position. The skin was loosely closed with merari leaving small sections open which were packed with iodoform. A sterile dressing was applied. He was awakened and taken to recovery in stable condition. I attest to the content of the Intraoperative Record and any orders documented therein. Any exceptions are noted below.
--- NOTE | 2023-09-01 05:02 | Anesthesiology Progress Note ---
Date of Service September 01, 2023 Anesthesia Post Procedure Vital Signs Vital Signs: Temp Pulse Pulse Resp BP BP Pulse Ox 09/01/23 04:51 96.6 F L 81 14 184/99 H 100 09/01/23 04:35 97.7 F 83 18 152/88 H 100 09/01/23 01:00 88 19 176/108 H 97 08/31/23 23:24 78 08/31/23 23:13 89 22 204/119 H 97 08/31/23 23:13 94 H 18 97 08/31/23 20:08 96.8 F L 68 19 147/86 H 96 O2 Del Method O2 Flow Rate 09/01/23 04:51 Oxymask 5 09/01/23 04:35 Oxymask 10 09/01/23 01:00 Room Air 08/31/23 23:24 08/31/23 23:13 Room Air 08/31/23 23:13 Room Air 08/31/23 20:08 Room Air Pain Intensity Lower Abdomen: Pain Intensity: 3 Transfer of Care Handoff Completed per policy Notes Mental Status: alert / awake / arousable and participated in evaluation Patient Amnestic to Procedure: Yes Nausea / Vomiting: adequately controlled Pain: adequately controlled Airway Patency, RR, SpO2: stable & adequate BP & HR: stable & adequate Hydration State: stable & adequate Anesthetic Complications: no major complications apparent and Pt Satisfied with anesthetic care Notes: right hand IV infiltrated upon emergence/transfer to recovery, LR only fluids given through IV during infiltration, recovery made aware and new IV placed.
[2023-09-01] MEDS: METOPROLOL TARTRATE 1 MG/ML VIAL IV STA (05:20)
[2023-09-01] MEDS: METOPROLOL TARTRATE 1 MG/ML VIAL IV ONE (05:22)
[2023-09-01] MEDS ORDERED: MoRPHine SULFATE 2 MG/ML CARP IV PRN (05:47)
[2023-09-01] MEDS ORDERED: MoRPHine SULFATE 4 MG/ML 1 ML CARP\\VIAL IV PRN (05:47)
--- NOTE | 2023-09-01 05:59 | Hospitalist Consultation ---
Date of Consultation September 01, 2023 Assessment & Plan (1) Volvulus of intestine: Final Assessment and Recommendations as follows : Hypertensive urgency Cecal volvulus status post surgery hyperlipidemia, on statin Rx BPH, on Flomax GERD, on PPI chronic hyponatremia right tonsillar CA status post surgery/radiation Hyperglycemia rule out DM past tobacco abuse Dr. Millan of General Surgery agreeable to admission to medical telemetry unit to facilitate administration of parenteral beta-uri while patient strictly n.p.o. Check hemoglobin A1c DVT prophylaxis. Heparin subcu as per postop orders Thank you very much for this consultation. Dr. George will follow patient's progress. Text document was generated using [employer] voice recognition software. It may contain grammatical or spelling errors. Kindly contact undersigned for clarification of any documentation item in question. History of Present Illness Reason for Consultation: Medical management Requesting Physician: Dr. Millan Attending Physician: Kathleen Millan MD History of Present Illness PCP [facility] History obtained from patient and records. Medical history significant for hypertension, hyperlipidemia, BPH, GERD, chronic hyponatremia, right tonsillar CA status post surgery/radiation, past tobacco abuse. Last [facility] confinement 1999 under ENT service for right tonsillectomy and modified radical neck dissection for tonsillar cancer. Unremarkable postop course. 2 days history of achy central abdominal pain associated with nausea and dry heaving symptoms, constipation. Some chills at home. Denies chest pain, SOB. Admits to dizziness without headache symptoms. Patient brought to ER for evaluation. Highest SBP of 200s noted at the ER. CT showed cecal volvulus. Patient admitted by General Surgery. Patient underwent emergent ex lap, right colon resection with reanastomosis. SBP noted to be 180s at PACU. Patient denies headache, chest pain, SOB. Abdominal pain actually controlled as per patient. 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 Allergies Allergy/AdvReac Type Severity Reaction Status Date / Time No Known Allergies Allergy Verified 01/01/19 11:57 Home Medications Medication Instructions Recorded Confirmed Type amlodipine 10 mg tablet 10 mg PO DAILY 01/01/19 09/01/23 History atorvastatin 10 mg tablet 10 mg PO HS 01/01/19 09/01/23 History calcium polycarbophil 625 mg 625 mg PO BID 01/01/19 01/01/19 History tablet (Fiber Laxative (calcium polycarbophil)) lisinopril 20 1 tab PO DAILY 01/01/19 09/01/23 History mg-hydrochlorothiazide 25 mg tablet metoprolol tartrate 25 mg tablet 12.5 mg PO BID 01/01/19 09/01/23 History naproxen 500 mg tablet,delayed 500 mg PO DAILY Pain 01/01/19 09/01/23 History release omeprazole 20 mg capsule,delayed 20 mg PO DAILY 01/01/19 09/01/23 History release tamsulosin 0.4 mg capsule 0.4 mg PO DAILY 01/01/19 09/01/23 History Bacmin 1 DAILY 09/01/23 History Lasix PO DAILY 09/01/23 History Zostrix-HP 0.075 TID 09/01/23 History carboxymethylcellulose sodium 0.5 TID 09/01/23 History carboxymethylcellulose sodium 0.5 TID 09/01/23 History Patient History Medical History (Updated 09/01/23 @ 01:55 by Kathleen Millan MD) Throat cancer High cholesterol High blood pressure Social History Smoking Status: Former smoker Hx Alcohol Use: No Hx Substance Use: No Preferred Language: Portuguese 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 Beliefs That Will Affect Care: None Feels Safe at Home: Yes Review of Systems Review of Systems: As per HPI, all other systems reviewed and negative Physical Exam Physical Exam: GENERAL: Comfortable, pleasant, obese, no respiratory distress SKIN: Pallor, warm HEENT: Partial alopecia, pink palpebral conjunctivae, no ptosis, dry buccal mucosa, NGT in place NECK : Supple, no tenderness CHEST : Decreased breath sounds, no tenderness HEART : RRR, no obvious murmurs ABDOMEN: Dressing in place, some distention, minimal tenderness EXTREMITIES : No LE swelling/tenderness, no other conspicuous deformities noted NEUROLOGIC : Coherent, no facial asymmetry, no other gross focality Results & Data Results & Data Vital Signs (Past 12 Hours) Vital Signs Temp Pulse Pulse Resp BP BP Pulse Ox 09/01/23 05:30 36.4 C L 75 16 144/62 H 97 09/01/23 05:24 36.4 C L 71 13 163/83 H 97 09/01/23 05:15 36.4 C 85 16 161/86 H 96 09/01/23 05:05 36.3 C L 85 16 179/96 H 96 09/01/23 04:51 35.9 C L 81 14 184/99 H 100 09/01/23 04:35 36.5 C 83 18 152/88 H 100 09/01/23 01:00 88 19 176/108 H 97 08/31/23 23:24 78 08/31/23 23:13 89 22 204/119 H 97 08/31/23 23:13 94 H 18 97 08/31/23 20:08 36 C L 68 19 147/86 H 96 O2 Del Method O2 Flow Rate 09/01/23 05:30 Room Air 09/01/23 05:24 Oxymask 2 09/01/23 05:15 Oxymask 2 09/01/23 05:05 Oxymask 2 09/01/23 04:51 Oxymask 5 09/01/23 04:35 Oxymask 10 09/01/23 01:00 Room Air 08/31/23 23:24 08/31/23 23:13 Room Air 08/31/23 23:13 Room Air 08/31/23 20:08 Room Air Laboratory Results Laboratory Results WBC 6.98 K/ul (4.8-10.8) 08/31/23 20: RBC 4.82 M/uL (4.70-6.10) 08/31/23 20:23 Hgb 14.0 g/dl (14.0-18.0) 08/31/23 20: Hct 40.5 % (42.0-52.0) L 08/31/23 20: MCV 84.0 fL (80.0-100.0) 08/31/23 20:23 MCH 29.0 pg (25.0-34.0) 08/31/23 20: MCHC 34.6 g/dL (32.0-36.0) 08/31/23 20:23 RDW Std Deviation 39.1 fL (36.4-46.3) 08/31/23 20: RDW Coeff of Shanelle 12.7 % (11.5-14.5) 08/31/23 20: Plt Count 177 K/uL (130-400) 08/31/23 20: MPV 9.9 fL (9.4-12.4) 08/31/23 20: Immature Gran % (Auto) 0.1 % 08/31/23: Neut % (Auto) 85.8 % 08/31/23: Lymph % (Auto) 8.5 % 08/31/23: [place] % (Auto) 4.9 % 08/31/23 20: Eos % (Auto) 0.3 % 08/31/23 20: Baso % (Auto) 0.4 % 08/31/23: Neut # (Auto) 5.99 K/uL (1.40-6.50) 08/31/23: Lymph # (Auto) 0.59 K/uL (1.20-3.40) L 08/31/23: [place] # (Auto) 0.34 K/uL (0.11-0.59) 08/31/23: Eos # (Auto) 0.02 K/uL (0.00-0.50) 08/31/23: Baso # (Auto) 0.03 K/uL (0.00-0.20) 08/31/23 20: Immature Gran # (Auto) 0.01 K/uL (0.01-0.20) 08/31/23 20: Sodium 133 mmol/L (136-145) L 08/31/23 20:23 Potassium 3.6 mmol/L (3.5-5.1) 08/31/23 20: Chloride 97 mmol/L (98-107) L 08/31/23 20: Carbon Dioxide 24 mmol/L (21-32) 08/31/23 20:23 Anion Gap 12 (3-11) H 08/31/23 20: BUN 20 mg/dl (6-23) 08/31/23: Creatinine 0.80 mg/dl (0.6-1.4) 08/31/23 20: Est Cr Clr Drug Dosing Not Reportable 08/31/23 20: Est GFR ( Amer) 97.8 ml/min 08/31/23 20: Est GFR (Non-Af Amer) 84.4 ml/min 08/31/23 20:23 BUN/Creatinine Ratio 25.0 (10-20) H 08/31/23 20:23 Glucose 173 mg/dl (70-99(Fasting)) H 08/31/23 20:23 Calcium 10.0 mg/dl (8.6-10.3) 08/31/23 20:23 Total Bilirubin 0.8 mg/dl (0.2-1.0) 08/31/23 20:23 AST 42 U/L (13-39) H 08/31/23 20:23 ALT 16 U/L (7-52) 08/31/23 20:23 Alkaline Phosphatase 62 U/L (34-104) 08/31/23 20:23 Total Protein 7.5 gm/dl (6.0-8.3) 08/31/23 20:23 Albumin 4.8 gm/dl (3.4-5.0) 08/31/23 20:23 Globulin 2.7 gm/dl (2.5-4.0) 08/31/23 20:23 Albumin/Globulin Ratio 1.8 (0.9-2) 08/31/23 20:23 Lipase 21 U/L (11-82) 08/31/23 20:23 Urine Color Yellow 08/31/23 23:15 Urine Appearance Clear (Clear) 08/31/23 23:15 Urine pH 5.5 (4.5-7.5) 08/31/23 23:15 Ur Specific [place] 1.025 (1.000-1.030) 08/31/23 23:15 Urine Protein 1+ (Negative) H 08/31/23 23:15 Urine Glucose (UA) 2+ (Negative) H 08/31/23 23:15 Urine Ketones 1+ (Negative) H 08/31/23 23:15 Urine Blood 1+ (Negative) H 08/31/23 23:15 Urine Nitrite Negative (Negative) 08/31/23 23:15 Urine Bilirubin Negative (Negative) 08/31/23 23:15 Urine Urobilinogen Negative (Negative) 08/31/23 23:15 Ur Leukocyte Esterase Negative (Negative) 08/31/23 23:15 Urine WBC (Auto) 0-5 /hpf (0-5) 08/31/23 23:15 Urine RBC (Auto) 0-2 /hpf (0-2) 08/31/23 23:15 U Hyaline Cast (Auto) 0-2 /lpf (0-2) 08/31/23 23:15 U Epithel Cells (Auto) 0-2 /hpf (0-2) 08/31/23 23:15 Urine Bacteria (Auto) None Seen (None Seen) 08/31/23 23:15 Impressions Abdomen/Pelvis CT 08/31/23 23:37 CR Exam(s): CT ABDOMEN + PELVIS With Contrast IV Amt: 91 ML OPTIRAY 320 EXAM: CT Abdomen and Pelvis With Intravenous Contrast CLINICAL HISTORY: mid abd pain. TECHNIQUE: Axial computed tomography images of the abdomen and pelvis with intravenous contrast. CTDI is 27.33 mGy and DLP is 1333.36 mGy-cm. Automated exposure control was utilized for the study. A dose lowering technique was utilized adhering to the principles of ALARA. CONTRAST: Patient received 91 ML OPTIRAY 320 of IV contrast COMPARISON: No relevant prior studies available. FINDINGS: Lung bases: Unremarkable. No mass. No consolidation. Mediastinum: Hiatal hernia. ABDOMEN: Liver: An 11 mm hepatic cyst is noted involving segment IVb the junction of segment 5. Gallbladder and bile ducts: A noncalcified gallstone is noted in the fundus of the gallbladder measuring 1.[address] evidence for gallbladder wall thickening or biliary dilatation. Pancreas: Unremarkable. No mass. No ductal dilation. Spleen: Unremarkable. No splenomegaly. Adrenals: Unremarkable. No mass. Kidneys and ureters: The kidneys demonstrate normal enhancement without hydronephrosis or pyelonephritis. No obstructive nephrolithiasis. Cortical cysts are noted bilaterally with the largest cyst in the anterior midpole measuring 14 mm. Stomach and bowel: Abnormal fluid dilation of several distal small bowel loops in the abdomen and pelvis. In addition, an abnormally fluid dilated cecum and proximal ascending colon is identified abnormally located in the left upper quadrant, measuring up to 10.1 cm in diameter. There is abnormal swirling of the mesenteric vasculature with narrowing of the superior mesenteric vein at this level with asymmetric mesenteric edema involving the abnormal fluid dilated distal small bowel and proximal colon. Postsurgical changes involving a small bowel loop involving the left inferior abdomen. PELVIS: Appendix: Not clearly delineated Bladder: Unremarkable. No mass. Reproductive: Unremarkable as visualized. ABDOMEN and PELVIS: Intraperitoneal space: Mild predominantly perihepatic fluid. No loculation. Mild free fluid adjacent to the abnormal small bowel loops in the abdomen. No free air. Bones/joints: Multilevel degenerative changes noted throughout the included thoracolumbar spine. No acute osseous abnormality. No dislocation. Soft tissues: Mild free fluid extends into the right inguinal hernia. The overlying soft tissues demonstrate mild subcutaneous fat stranding suggesting edema. Vasculature: Atherosclerotic calcification of the aorta and iliac arteries. Lymph nodes: Unremarkable. No enlarged lymph nodes. IMPRESSION: Abnormal fluid dilation of several distal small bowel loops in the abdomen and pelvis. In addition, an abnormally fluid dilated cecum and proximal ascending colon is identified abnormally located in the left upper quadrant, measuring up to 10.1 cm in diameter. There is abnormal swirling of the mesenteric vasculature with narrowing of the superior mesenteric vein at this level with asymmetric mesenteric edema involving the abnormal fluid dilated distal small bowel and proximal colon. 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 No pneumatosis or pneumoperitoneum noted this time. Emergent surgical consultation is recommended however. Communications: Call Doctor Volvulus Electronically signed by: Randy iYng MD 09/01/23 00:38 AM Diagnostic Findings EKG as per my interpretation : Rate 65, NSR, normal axis, LVH, nonspecific T wave abnormalities
[2023-09-01] MEDS ORDERED: ACETAMINOPHEN 1,000 MG/100 ML VIAL IV PRN (06:17)
[2023-09-01 06:38] LABS: Magnesium 2.2 mg/dl (1.7-2.4)
[2023-09-01 06:46] LABS: Basophils # (auto) 0.01 K/uL (0.00-0.20); Basophils % (auto) 0.2 %; Hematocrit (blood only) 39.5 % (42.0-52.0); Hemoglobin 13.4 g/dl (14.0-18.0); Immature Granulocytes # (auto) 0.01 K/uL (0.01-0.20); Immature Granulocytes % (auto) 0.2 %; Lymphocytes # (auto) 0.38 K/uL (1.20-3.40); Lymphocytes % (auto) 8.1 %; Mean Corpuscular Hemoglobin 28.6 pg (25.0-34.0); Mean Corpuscular Hgb Conc 33.9 g/dL (32.0-36.0); Mean Corpuscular Volume 84.4 fL (80.0-100.0); Mean Platelet Volume 9.4 fL (9.4-12.4); Monocytes % (auto) 4.2 %; Neutrophils # (auto) 4.12 K/uL (1.40-6.50); Neutrophils % (auto) 87.3 %; Platelet Count 155 K/uL (130-400); RDW Coefficient of Variation 12.8 % (11.5-14.5); RDW Standard Deviation 39.7 fL (36.4-46.3); Red Blood Count 4.68 M/uL (4.70-6.10); White Blood Count 4.72 K/ul (4.8-10.8)
[2023-09-01 06:54] LABS: Thyroid Stimulating Hormone 4.629 uIu/ml (0.300-4.500)
[2023-09-01] MEDS: metroNIDAZOLE 500 MG/100 ML BAG IV STA (07:07)
[2023-09-01] MEDS: PIPERACILLIN/TAZOBACTAM 4.5 GM in DEXTROSE 5% MINI-B 100 ML IV SCH (07:17)
[2023-09-01 07:19] LABS: BUN Creatinine Ratio 23.7 (10-20); Calcium 9.1 mg/dl (8.6-10.3); Creatinine Clr Calc Pharmacy 90.4 ml/min; Est GFR (African American) 99.9 ml/min; Est GFR (Non-African American) 86.2 ml/min; Potassium 5.3 mmol/L (3.5-5.1)
--- NOTE | 2023-09-01 07:27 | XRay Report ---
KUB HISTORY: Status post placement of an enteric tube post NGT placement COMPARISON: CT 08/31/2023 FINDINGS: Distal tip of enteric tube projects over the midline lower chest. Distended air-filled loop s of bowel again noted. Contrast within the urinary bladder lumen. Cardiomegaly. No renal calculi. N o ureteral calculi. No pneumoperitoneum or pneumatosis. No fracture. IMPRESSION: 1. Distal tip of enteric tube projects over the midline lower chest, likely within the patient's smal l hiatal hernia. Advancement with follow-up imaging is needed. 2. Persistent bowel obstruction. ACT 112: Negative or not required by law. The above report was generated using voice recognition software. It may contain grammatical, syntax o r spelling errors. Electronically signed by: Mark Stafford M.D. 09/01/2023 7:25 AM
[2023-09-01 07:37] LABS: T4 Free Thyroxine 1.18 ng/dl (0.61-1.60)
--- NOTE | 2023-09-01 07:41 | XRay Report ---
XR chest 1V portable CLINICAL HISTORY: hyponatremia COMPARISON STUDY: No previous studies for comparison. FINDINGS: The tip of the nasogastric tube is difficult to visualize but is at least within the body o f the stomach. There is no pneumothorax or pleural effusion. There is no consolidation. No evidence f or pulmonary edema. No pulmonary nodules are identified although sensitivity is diminished given radi ographic technique. IMPRESSION: No acute cardiopulmonary findings. ACT 112: Negative or not required by law. Electronically signed by: George Arriaga M.D. 09/01/2023 7:40 AM
[2023-09-01 07:49] LABS: Estimated Average Glucose 114 mg/dl; Hemoglobin A1C 5.6 % (4.5-5.6)
[2023-09-01] MEDS: NSS + 20MEQ KCL 20 MEQ/1,000 ML BAG IV SCH (08:24)
[2023-09-01] MEDS: HEPARIN SOD 5,000 UNIT/0.5 ML VIAL SQ SCH (08:25)
[2023-09-01] MEDS: FUROSEMIDE 40 MG/4 ML VIAL IV ONE (09:02)
[2023-09-01] MEDS: PANTOprazole 40 MG in SYRINGE 0 ML IV SCH (10:52)
--- NOTE | 2023-09-01 11:15 | Surgery Progress Note ---
Date of Service September 01, 2023 Assessment & Plan (1) Volvulus of intestine: Plan: POD # 0 ex lap, right hemicolectomy AVSS NGT with minimal output no return of bowel function yet adequate urine output Plan: Continue pain management continue IV fluids continue NPO can have ice chips and mouth swabs continue NGT for today Continue ruiz OOB to chair today monitor labs continue medical management dr. Mccarty has seen and examined patient, agrees with above. Admission and Anticipated Discharge Date Admission Date: September 01, 2023 Subjective feeling okay pain controlled no n,v Physical Exam Constitutional: WD/WN, vitals as above cooperative and comfortable; no acute distress and not ill appearing Respiratory: normal respiratory effort; no respiratory distress and no labored breathing Gastrointestinal (Abdomen): Inspection/Auscultation: abdomen normal to inspection and + abdominal surgical incision (covered with clean intact dressing); abdomen not distended Percussion/Palpation: + abdomen tender (at midline incision site) and abdomen soft; no guarding, abdomen not rigid and abdomen not firm Skin: no rashes, warm and dry Psychiatric: A+Ox3, euthymic affect Results & Data Vital Signs (Past 12 Hours) Vital Signs Temp Pulse Pulse Resp BP BP Pulse Ox 09/01/23 10:52 37.0 C 92 H 19 99/66 L 95 09/01/23 08:17 86 19 115/68 97 09/01/23 07:16 36.4 C L 81 19 129/76 98 09/01/23 07:00 09/01/23 07:00 77 09/01/23 05:53 36.4 C L 74 18 146/83 H 96 09/01/23 05:30 36.4 C L 75 16 144/62 H 97 09/01/23 05:24 36.4 C L 71 13 163/83 H 97 09/01/23 05:15 36.4 C 85 16 161/86 H 96 09/01/23 05:05 36.3 C L 85 16 179/96 H 96 09/01/23 04:51 35.9 C L 81 14 184/99 H 100 09/01/23 04:35 36.5 C 83 18 152/88 H 100 09/01/23 01:00 88 19 176/108 H 97 08/31/23 23:24 78 08/31/23 23:13 89 22 204/119 H 97 08/31/23 23:13 94 H 18 97 O2 Del Method O2 Flow Rate 09/01/23 10:52 Nasal Cannula 2 09/01/23 08:17 Nasal Cannula 2 09/01/23 07:16 Nasal Cannula 2 09/01/23 07:00 Nasal Cannula 2 09/01/23 07:00 09/01/23 05:53 Room Air 09/01/23 05:30 Room Air 09/01/23 05:24 Oxymask 2 09/01/23 05:15 Oxymask 2 09/01/23 05:05 Oxymask 2 09/01/23 04:51 Oxymask 5 09/01/23 04:35 Oxymask 10 09/01/23 01:00 Room Air 08/31/23 23:24 08/31/23 23:13 Room Air 08/31/23 23:13 Room Air Laboratory Results 09/01/23 09/01/23 08/31/23 Range/Units 08:21 06:12 23:15 WBC 4.72 L (4.8-10.8) K/ul RBC 4.68 L (4.70-6.10) M/uL Hgb 13.4 L (14.0-18.0) g/dl Hct 39.5 L (42.0-52.0) % MCV 84.4 (80.0-100.0) fL MCH 28.6 (25.0-34.0) pg MCHC 33.9 (32.0-36.0) g/dL RDW Std Deviation 39.7 (36.4-46.3) fL RDW Coeff of Shanelle 12.8 (11.5-14.5) % Plt Count 155 (130-400) K/uL MPV 9.4 (9.4-12.4) fL Immature Gran % (Auto) 0.2 % Neut % (Auto) 87.3 % Lymph % (Auto) 8.1 % Green % (Auto) 4.2 % Eos % (Auto) 0.0 % Baso % (Auto) 0.2 % Neut # (Auto) 4.12 (1.40-6.50) K/uL Lymph # (Auto) 0.38 L (1.20-3.40) K/uL Green # (Auto) 0.20 (0.11-0.59) K/uL Eos # (Auto) 0.00 (0.00-0.50) K/uL Baso # (Auto) 0.01 (0.00-0.20) K/uL Immature Gran # (Auto) 0.01 (0.01-0.20) K/uL Sodium 136 (136-145) mmol/L Potassium 5.3 H D (3.5-5.1) mmol/L Chloride 99 (98-107) mmol/L Carbon Dioxide 30 (21-32) mmol/L Anion Gap 7 (3-11) BUN 18 (6-23) mg/dl Creatinine 0.76 (0.6-1.4) mg/dl Est Cr Clr Drug Dosing 90.4 Est GFR ( Amer) 99.9 ml/min Est GFR (Non-Af Amer) 86.2 ml/min BUN/Creatinine Ratio 23.7 H (10-20) Glucose 183 H (70-99(Fasting)) mg/dl POC Glucose 165 H (70-99) mg/dl Estimat Average Glucose 114 mg/dl Hemoglobin A1c 5.6 (4.5-5.6) % Calcium 9.1 (8.6-10.3) mg/dl Magnesium (1.7-2.4) mg/dl Total Bilirubin (0.2-1.0) mg/dl AST (13-39) U/L ALT (7-52) U/L Alkaline Phosphatase (34-104) U/L Total Protein (6.0-8.3) gm/dl Albumin (3.4-5.0) gm/dl Globulin (2.5-4.0) gm/dl Albumin/Globulin Ratio (0.9-2) Lipase (11-82) U/L TSH (0.300-4.500) uIu/ml Free T4 (0.61-1.60) ng/dl Urine Color Yellow Urine Appearance Clear (Clear) Urine pH 5.5 (4.5-7.5) Ur Specific [place] 1.025 (1.000-1.030) Urine Protein 1+ H (Negative) Urine Glucose (UA) 2+ H (Negative) Urine Ketones 1+ H (Negative) Urine Blood 1+ H (Negative) Urine Nitrite Negative (Negative) Urine Bilirubin Negative (Negative) Urine Urobilinogen Negative (Negative) Ur Leukocyte Esterase Negative (Negative) Urine WBC (Auto) 0-5 (0-5) /hpf Urine RBC (Auto) 0-2 (0-2) /hpf U Hyaline Cast (Auto) 0-2 (0-2) /lpf U Epithel Cells (Auto) 0-2 (0-2) /hpf Urine Bacteria (Auto) None Seen (None Seen) 08/31/23 Range/Units 20:23 WBC 6.98 (4.8-10.8) K/ul RBC 4.82 (4.70-6.10) M/uL Hgb 14.0 (14.0-18.0) g/dl Hct 40.5 L (42.0-52.0) % MCV 84.0 (80.0-100.0) fL MCH 29.0 (25.0-34.0) pg MCHC 34.6 (32.0-36.0) g/dL RDW Std Deviation 39.1 (36.4-46.3) fL RDW Coeff of Shanelle 12.7 (11.5-14.5) % Plt Count 177 (130-400) K/uL MPV 9.9 (9.4-12.4) fL Immature Gran % (Auto) 0.1 % Neut % (Auto) 85.8 % Lymph % (Auto) 8.5 % Green % (Auto) 4.9 % Eos % (Auto) 0.3 % Baso % (Auto) 0.4 % Neut # (Auto) 5.99 (1.40-6.50) K/uL Lymph # (Auto) 0.59 L (1.20-3.40) K/uL Green # (Auto) 0.34 (0.11-0.59) K/uL Eos # (Auto) 0.02 (0.00-0.50) K/uL Baso # (Auto) 0.03 (0.00-0.20) K/uL Immature Gran # (Auto) 0.01 (0.01-0.20) K/uL Sodium 133 L (136-145) mmol/L Potassium 3.6 (3.5-5.1) mmol/L Chloride 97 L (98-107) mmol/L Carbon Dioxide 24 (21-32) mmol/L Anion Gap 12 H (3-11) BUN 20 (6-23) mg/dl Creatinine 0.80 (0.6-1.4) mg/dl Est Cr Clr Drug Dosing Not Reportable Est GFR ( Amer) 97.8 ml/min Est GFR (Non-Af Amer) 84.4 ml/min BUN/Creatinine Ratio 25.0 H (10-20) Glucose 173 H (70-99(Fasting)) mg/dl POC Glucose (70-99) mg/dl Estimat Average Glucose mg/dl Hemoglobin A1c (4.5-5.6) % Calcium 10.0 (8.6-10.3) mg/dl Magnesium 2.2 (1.7-2.4) mg/dl Total Bilirubin 0.8 (0.2-1.0) mg/dl AST 42 H (13-39) U/L ALT 16 (7-52) U/L Alkaline Phosphatase 62 (34-104) U/L Total Protein 7.5 (6.0-8.3) gm/dl Albumin 4.8 (3.4-5.0) gm/dl Globulin 2.7 (2.5-4.0) gm/dl Albumin/Globulin Ratio 1.8 (0.9-2) Lipase 21 (11-82) U/L TSH 4.629 H (0.300-4.500) uIu/ml Free T4 1.18 (0.61-1.60) ng/dl Urine Color Urine Appearance (Clear) Urine pH (4.5-7.5) Ur Specific [place] (1.000-1.030) Urine Protein (Negative) Urine Glucose (UA) (Negative) Urine Ketones (Negative) Urine Blood (Negative) Urine Nitrite (Negative) Urine Bilirubin (Negative) Urine Urobilinogen (Negative) Ur Leukocyte Esterase (Negative) Urine WBC (Auto) (0-5) /hpf Urine RBC (Auto) (0-2) /hpf U Hyaline Cast (Auto) (0-2) /lpf U Epithel Cells (Auto) (0-2) /hpf Urine Bacteria (Auto) (None Seen)
--- NOTE | 2023-09-01 11:20 | Communication Note ---
Date of Service: September 01, 2023 Evaluated patient at bedside this am Reported pain controlled at time of visit Medications reviewed novasc 10mg daily lipitor 10mg qhs lasix 20mg 1 daily lisinopril-hctz 20mg 1 tab daily lopressor 12.5mg twice daily Naproxen 500mg daily prilosec 20mg daily Multivitamin Bacmin 1 daily Flomax 0.4mg qhs #Cecal Volvulus s/p ex lap with irght colon resection -Surgery primary -Pain per primary team, abx per primary Gentle fluids, NS #Hyperkalemia Hold lisinopril, s/p IV lasix 2/2 crackles, edema repeat bmp #HTN Regimen lopressor 12.5mg BID, novasc 10mg daily, lisinopril hctz daily Resume as able Pressures on lower side at this time #BLE edema Lasix 20mg daily Formal progress note tomorrow
[2023-09-01] MEDS: METOPROLOL TARTRATE 1 MG/ML VIAL IV SCH (11:43)
[2023-09-01] MEDS: SODIUM CHLORIDE 0.9% 1,000 ML IV SCH (11:47)
[2023-09-01 13:30] LABS: BUN Creatinine Ratio 24.4 (10-20); Calcium 8.1 mg/dl (8.6-10.3); Creatinine Clr Calc Pharmacy 83.7 ml/min; Est GFR (African American) 96.8 ml/min; Est GFR (Non-African American) 83.5 ml/min; Potassium 4.4 mmol/L (3.5-5.1)
[2023-09-02 09:14] LABS: Hematocrit (blood only) 21.5 % (42.0-52.0); Hemoglobin 7.3 g/dl (14.0-18.0); Mean Corpuscular Hemoglobin 29.2 pg (25.0-34.0); Mean Platelet Volume 10.3 fL (9.4-12.4); Platelet Count 162 K/uL (130-400); RDW Coefficient of Variation 13.3 % (11.5-14.5); RDW Standard Deviation 41.7 fL (36.4-46.3); White Blood Count 11.62 K/ul (4.8-10.8)
[2023-09-02] MEDS ORDERED: oxyCODONE/ACETAMINOPHEN 5mg/325mg TAB PO PRN ×2 (09:28)
--- NOTE | 2023-09-02 09:38 | Surgery Progress Note ---
Date of Service September 02, 2023 Assessment & Plan (1) Volvulus of intestine: Plan: POD # 1.5 ex lap, right hemicolectomy AVSS NGT with minimal to no output positive return of bowel function minimal postop pain Hemoglobin 7.3 today (13.4 yesterday) , asymptomatic, minimal intraoperative blood loss, dilutional? Creatinine slightly increased today 1.57 Plan: Continue pain management as needed continue IV fluids remove NGT start clears, advised to go slow Continue ruiz for I&O OOB to chair today PT/OT consults Heparin and SCDs for DVT prophylaxis repeat H&H at noon continue medical management Dr. Mccarty has seen and examined patient, agrees with above. Admission and Anticipated Discharge Date Admission Date: September 01, 2023 Subjective feeling good, minimal pain passing gas and had small bowel movement yesterday no n,v thirsty has not been out of bed yet Physical Exam Constitutional: WD/WN, vitals as above + obese, cooperative and comfortable; no acute distress and not ill appearing Respiratory: normal respiratory effort; no respiratory distress and no labored breathing Gastrointestinal (Abdomen): Inspection/Auscultation: abdomen normal to inspec tion, + abdominal surgical incision (clean/dry/intact with merari packing present) and + hypoactive bowel sounds; abdomen not distended and + abnormal bowel sounds Percussion/Palpation: + abdomen tender (at midline incision appropriate postop) and abdomen soft; no guarding and abdomen not rigid NGT with no output in canister Skin: no rashes, warm and dry Psychiatric: Orientation: alert and oriented x 3 Results & Data Vital Signs (Past 12 Hours) Vital Signs Temp Pulse Pulse Pulse Resp BP BP 09/02/23 07:25 79 09/02/23 07:19 36.9 C 92 H 20 107/67 09/02/23 06:16 104/69 09/02/23 04:03 36.7 C 96 H 18 83/54 L 09/02/23 00:26 73 09/01/23 22:29 37.5 C 91 H 20 117/73 09/01/23 21:55 86 Pulse Ox O2 Del Method O2 Flow Rate 09/02/23 07:25 09/02/23 07:19 99 Nasal Cannula 2 09/02/23 06:16 09/02/23 04:03 97 Nasal Cannula 2.0 09/02/23 00:26 09/01/23 22:29 98 Nasal Cannula 09/01/23 21:55 Laboratory Results 09/02/23 09/02/23 09/01/23 Range/Units 07:59 05:33 23:41 WBC 11.62 H (4.8-10.8) K/ul RBC 2.50 L (4.70-6.10) M/uL Hgb 7.3 L D (14.0-18.0) g/dl Hct 21.5 L (42.0-52.0) % MCV 86.0 (80.0-100.0) fL MCH 29.2 (25.0-34.0) pg MCHC 34.0 (32.0-36.0) g/dL RDW Std Deviation 41.7 (36.4-46.3) fL RDW Coeff of Shanelle 13.3 (11.5-14.5) % Plt Count 162 (130-400) K/uL MPV 10.3 (9.4-12.4) fL Sodium Pending (136-145) mmol/L Potassium Pending (3.5-5.1) mmol/L Chloride Pending (98-107) mmol/L Carbon Dioxide Pending (21-32) mmol/L Anion Gap Pending (3-11) BUN Pending (6-23) mg/dl Creatinine Pending (0.6-1.4) mg/dl Est Cr Clr Drug Dosing Pending ml/min Est GFR ( Amer) Pending ml/min Est GFR (Non-Af Amer) Pending ml/min BUN/Creatinine Ratio Pending (10-20) Glucose Pending (70-99(Fasting)) mg/dl POC Glucose 156 H 177 H (70-99) mg/dl Calcium Pending (8.6-10.3) mg/dl Phosphorus Pending Magnesium Pending 09/01/23 09/01/23 09/01/23 Range/Units 18:23 14:16 12:26 WBC (4.8-10.8) K/ul RBC (4.70-6.10) M/uL Hgb (14.0-18.0) g/dl Hct (42.0-52.0) % MCV (80.0-100.0) fL MCH (25.0-34.0) pg MCHC (32.0-36.0) g/dL RDW Std Deviation (36.4-46.3) fL RDW Coeff of Shanelle (11.5-14.5) % Plt Count (130-400) K/uL MPV (9.4-12.4) fL Sodium 134 L (136-145) mmol/L Potassium 4.4 (3.5-5.1) mmol/L Chloride 99 (98-107) mmol/L Carbon Dioxide 29 (21-32) mmol/L Anion Gap 6 (3-11) BUN 20 (6-23) mg/dl Creatinine 0.82 (0.6-1.4) mg/dl Est Cr Clr Drug Dosing 83.7 ml/min Est GFR ( Amer) 96.8 ml/min Est GFR (Non-Af Amer) 83.5 ml/min BUN/Creatinine Ratio 24.4 H (10-20) Glucose 180 H (70-99(Fasting)) mg/dl POC Glucose 173 H 181 H (70-99) mg/dl Calcium 8.1 L (8.6-10.3) mg/dl Phosphorus Magnesium
[2023-09-02 09:41] LABS: BUN Creatinine Ratio 23.6 (10-20); Calcium 7.8 mg/dl (8.6-10.3); Creatinine Clr Calc Pharmacy 42.9 ml/min; Est GFR (African American) 47.5 ml/min; Magnesium 2.5 mg/dl (1.7-2.4); Phosphorus 2.7 mg/dl (2.5-4.9)
--- NOTE | 2023-09-02 11:47 | Hospitalist Progress Note ---
Date of Service September 02, 2023 Assessment & Plan (1) Volvulus of intestine: Plan: Mr. Aceves is an 78 year old gentleman with past medical history notable for HFpEF, HTN, HLD, BPH, prior tobacco use, GERD, who is admitted due to cecal volvulus. Patient is now s/p exlap 08/31 with right colon resection. Postoperative course complicated by GENE and post-operative anemia Patient otherwise reports feeling subjectively well and tolerating PO. #Post-operative hypotension #Hypertensive urgency -Initial consult for hypertension, patient with tachycardia pre/post op, started on metoprolol 2.5 q6 hours, now NGT removed and on CLD will resume home metoprolol 12.5mg BID Hold other home medications at this time #GENE #hyperkalemia likely prerenal/ATN 2/2 hypotension, contrast Lasix administered yesterday am 2/2 hyperkalemia and crackles Hold home diuretics, continue IVF and encourage PO Avoid nephrotoxic agents Hold home ACEi/hctz Strict I/Os Continue ruiz Insulin/dextrose, IVF for hyperk Will hold on lokelma given recent GI procedure Nephrology consult given concern for hyperkalemia, but limited ability to use diuretics for excretion, as well as Lokelma given bowel resection #Acute anemia, dilutional and post-op losses? -Hemoglobin prior to procedure 14, now postop day 1 7; hgb from 2019 ~10, suspect likely combination of dehydration for elevated value on admission. Patient now s/p IVF and procedure, suspect dilutional and post-op losses given current hemodynamic stability and clinical improvement. 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 Heparin subcu as per postop orders Thank you for this consultation. We will follow the patient with you during their hospital stay. You can reach a member of the [facility] Hospitalist Team 14/12 via [employer] Admission and Anticipated Discharge Date Admission Date: September 01, 2023 Subjective Patient evaluated at bedside Denies any acute concerns this morning, stating his pain is well controlled and that he isn't HGB notably low from preop 14-->7; curious if dilutional/post op effect -Denies any uncontrolled back/abdominal concerns, passing stool Physical Exam Constitutional: WD/WN, vitals as above Respiratory: normal respiratory effort, lungs clear to auscultation Cardiovascular: RRR, no murmur, no edema Gastrointestinal (Abdomen): normal bowel sounds, soft, nontender, no hepatosplenomegaly midline dressing with no strike through Results & Data Results & Data Vital Signs (Past 12 Hours) Vital Signs Temp Pulse Pulse Pulse Resp BP BP 09/02/23 10:59 37.2 C 95 H 20 117/71 09/02/23 07:25 79 09/02/23 07:19 36.9 C 92 H 20 107/67 09/02/23 06:16 104/69 09/02/23 04:03 36.7 C 96 H 18 83/54 L 09/02/23 00:26 73 Pulse Ox O2 Del Method O2 Flow Rate 09/02/23 10:59 97 Nasal Cannula 2 09/02/23 07:25 09/02/23 07:19 99 Nasal Cannula 2 09/02/23 06:16 09/02/23 04:03 97 Nasal Cannula 2.0 09/02/23 00:26 Laboratory Results Short CBC 09/02/23 09/02/23 Range/Units 07:59 11:58 WBC 11.62 H (4.8-10.8) K/ul Hgb 7.3 L D 7.1 L (14.0-18.0) g/dl Hct 21.5 L 21.3 L (42.0-52.0) % Plt Count 162 (130-400) K/uL BMP 09/02/23 07:59 Sodium 136 Potassium 6.0 H D Chloride 104 Carbon Dioxide 30 BUN 37 H Creatinine 1.57 H D Glucose 152 H Calcium 7.8 L Medications Administered Home Medications Medication Instructions Recorded Confirmed Last Taken amlodipine 10 mg tablet 10 mg PO DAILY 01/01/19 09/01/23 Unknown atorvastatin 10 mg tablet 10 mg PO HS 01/01/19 09/01/23 Unknown lisinopril 20 1 tab PO DAILY 01/01/19 09/01/23 Unknown mg-hydrochlorothiazide 25 mg tablet metoprolol tartrate 25 mg tablet 12.5 mg PO BID 01/01/19 09/01/23 Unknown naproxen 500 mg tablet,delayed 500 mg PO DAILY Pain 01/01/19 09/01/23 Unknown release omeprazole 20 mg capsule,delayed 20 mg PO DAILY 01/01/19 09/01/23 Unknown release tamsulosin 0.4 mg capsule 0.4 mg PO DAILY 01/01/19 09/01/23 Unknown Bacmin 1 PO DAILY 09/01/23 Unknown Lasix 20 mg PO DAILY 09/01/23 09/01/23 Unknown Active Medications Generic Name Dose Route Start Last Admin Trade Name Freq PRN Reason Stop Dose Admin Heparin Sodium (Porcine) 5,000 units 09/01/23 09:00 09/02/23 08:51 Heparin Sod 5,000 Unit/0.5 Ml Vial SQ 10/01/23 08:59 5,000 units Q12 ZULEIMA Administration Piperacillin Sod/Tazobactam 100 mls @ 25 mls/hr 09/01/23 08:00 09/02/23 12:51 Sod 4.5 gm/ Dextrose IV 09/05/23 07:59 Infused Q8H ZULEIMA Infusion Protocol Pantoprazole Sodium 40 mg/ 10 mls @ 5 mls/min 09/01/23 11:00 09/02/23 11:06 Syringe IV 10/01/23 10:59 5 mls/min DAILY@1100 ZULEIMA Administration Sodium Chloride 1,000 mls @ 100 mls/hr 09/01/23 11:30 09/02/23 06:16 Nss IV 10/01/23 11:29 50 mls/hr .Q10H ZULEIMA Administration Metoprolol Tartrate 2.5 mg 09/01/23 12:00 09/02/23 11:49 Metoprolol Tartrate 1 Mg/Ml Vial IV 10/01/23 11:59 2.5 mg Q6 ZULEIMA Administration
[2023-09-02 12:32] LABS: Hematocrit (blood only) 21.3 % (42.0-52.0); Hemoglobin 7.1 g/dl (14.0-18.0)
[2023-09-02] MEDS: INSULIN HUMAN REGULAR PER UNIT 10 UNITS in SYRINGE 9.9 ML IV STA (15:19)
[2023-09-02] MEDS: DEXTROSE 50% 50 ML SYRINGE IV STA (15:19)
[2023-09-02] MEDS: FUROSEMIDE 40 MG/4 ML VIAL IV ONE (15:48)
[2023-09-02 16:24] LABS: Bilirubin Direct 0.1 mg/dl (0-0.2); Bilirubin,Total 0.5 mg/dl (0.2-1.0); Calcium 7.5 mg/dl (8.6-10.3); Est GFR (African American) 58.6 ml/min; Est GFR (Non-African American) 50.6 ml/min; Potassium 4.3 mmol/L (3.5-5.1)
[2023-09-02 16:42] LABS: Ferritin 126.8 ng/ml (8-388)
[2023-09-02 17:03] LABS: Folate (Folic Acid),Ser orPlas 15.09 ng/ml (>5.38)
[2023-09-02] MEDS: METOPROLOL TARTRATE 25 MG TAB PO SCH (20:23)
[2023-09-02] MEDS: ATORVASTATIN 10 MG TAB PO SCH (20:23)
[2023-09-02] MEDS: SODIUM ZIRCONIUM CYCLOSILICATE 10 GM PACKET PO SCH (20:25)
[2023-09-02 20:48] LABS: Appearance Urine Clear (Clear); Bacteria Urine Automated None Seen (None Seen); Bilirubin Urine Negative (Negative); Blood Urine Trace (Negative); Cast Urine Automated >20 /lpf (0-2); Color Urine Yellow; Epithelial Cell Urine Auto 0-2 /hpf (0-2); Glucose Urine UA Negative (Negative); Granular Casts Urine Present /lpf (None Prsent); Hyaline Casts Urine Present /lpf (None Presnt); Ketones Urine Negative (Negative); Leukocyte Esterase Urine 1+ (Negative); Nitrite Urine Negative (Negative); Protein Urine Negative (Negative); RBC Urine Automated 0-2 /hpf (0-2); Specific Gravity Urine 1.016 (1.000-1.030); Urobilinogen Urine Negative (Negative); WBC Urine Automated 0-5 /hpf (0-5); pH Urine 5.5 (4.5-7.5)
[2023-09-03 04:52] LABS: Hematocrit (blood only) 17.1 % (42.0-52.0); Hemoglobin 5.8 g/dl (14.0-18.0); Mean Corpuscular Hemoglobin 29.3 pg (25.0-34.0); Mean Corpuscular Hgb Conc 33.9 g/dL (32.0-36.0); Mean Corpuscular Volume 86.4 fL (80.0-100.0); Mean Platelet Volume 10.3 fL (9.4-12.4); Platelet Count 153 K/uL (130-400); RDW Coefficient of Variation 13.4 % (11.5-14.5); RDW Standard Deviation 42.5 fL (36.4-46.3); Red Blood Count 1.98 M/uL (4.70-6.10); White Blood Count 9.42 K/ul (4.8-10.8)
[2023-09-03 05:06] LABS: Albumin Globulin Ratio 1.4 (0.9-2); Bilirubin,Total 0.6 mg/dl (0.2-1.0); Calcium 7.7 mg/dl (8.6-10.3); Creatinine Clr Calc Pharmacy 63.5 ml/min; Est GFR (African American) 76.4 ml/min; Globulin 2.1 gm/dl (2.5-4.0); Magnesium 2.5 mg/dl (1.7-2.4); Phosphorus 2.2 mg/dl (2.5-4.9); Potassium 4.6 mmol/L (3.5-5.1); Total Protein 5.1 gm/dl (6.0-8.3)
[2023-09-03] MEDS: OPTIRAY 320 125ml IV ONE (06:01)
[2023-09-03 06:37] LABS: Hematocrit (blood only) 16.1 % (42.0-52.0); Hemoglobin 5.5 g/dl (14.0-18.0)
[2023-09-03] MEDS ORDERED: SODIUM CHLORIDE 0.9% 250 ML IV PRN (06:41)
--- NOTE | 2023-09-03 07:12 | Communication Note ---
Date of Service: September 03, 2023 2 UPRBC ordered CTA ordered Anemia labs from day prior without signs of hemolysis, iron deficiency +
--- NOTE | 2023-09-03 08:20 | Surgery Progress Note ---
Date of Service September 03, 2023 Assessment & Plan (1) Volvulus of intestine: Plan: POD # 2.5 ex lap, right hemicolectomy afebrile, vss , tachycardic last evening H&H continues to drop 5.5 this morning (7.1, 7.3 yesterday), asymptomatic. CTA negative for acute bleed minimal postop pain Creatinine wnl, adequate urine output + bloody maroon bowel movements with clots today Plan: Likely had Gi bleed at staple line yesterday which now is producing maroon blood y bowel movements. No active bleeding on CTA. Patient is asymptomatic with benign abdomen. Has some distention but otherwise minimal abdominal pain. He is [employer] and does not want any blood transfusion. Medicine started on iron, vitamin b12 and folic acid infusion. Repeat Hemoglobin 6.4 Likely not continuing to actively bleed as hgb slowly improved and patient asymptomatic. Dr. Mccarty discussed with patient since he is asymptomatic and hemodynamically stable, he would not recommend surgery as the risks of general anesthesia with low hemoglobin and risk of bleeding with reoperating would be high. will monitor h&H closely q 4 hours Continue npo for now Continue medial management Dr. Long covering the weekend (2) Anemia: Admission and Anticipated Discharge Date Admission Date: September 01, 2023 Subjective feeling okay this morning, no change in abdominal pain last evening into early this morning, minimal abdominal pain passing gas no n,v no chest pain, sob, dizziness, lightheadedness Physical Exam Constitutional: WD/WN, vitals as above cooperative and comfortable; no acute distress and not ill appearing Respiratory: normal respiratory effort; no respiratory distress, no labored breathing and no retractions Gastrointestinal (Abdomen): Inspection/Auscultation: abdomen normal to inspection, + abdomen distended (mild) and + abdominal surgical incision (dressing dry ) Percussion/Palpation: + abdomen tender (minimal at midline incision) and abdomen soft; no guarding, abdomen not rigid and abdomen not firm No peritonitis, rigidity, or rebound Skin: no rashes, warm and dry Psychiatric: Orientation: alert and oriented x 3 Results & Data Vital Signs (Past 12 Hours) Vital Signs Temp Pulse Pulse Resp BP Pulse Ox Pulse Ox 09/03/23 07:35 36.5 C 90 18 117/69 93 09/03/23 06:18 90 09/03/23 04:07 94 09/03/23 03:36 36.8 C 101 H 20 117/62 94 09/03/23 03:22 107 H 19 93 09/02/23 23:05 105 H 24 95 09/02/23 22:25 103 H 09/02/23 22:20 09/02/23 22:20 37.1 C 96 H 20 150/83 H 94 O2 Del Method O2 Del Method O2 Flow Rate 09/03/23 07:35 Room Air 09/03/23 06:18 09/03/23 04:07 CPAP 09/03/23 03:36 Room Air, CPAP 09/03/23 03:22 2 09/02/23 23:05 2 09/02/23 22:25 09/02/23 22:20 Nasal Cannula 2 09/02/23 22:20 Nasal Cannula 2 Laboratory Results 09/03/23 09/03/23 09/03/23 Range/Units 07:59 06:55 06:03 WBC (4.8-10.8) K/ul RBC (4.70-6.10) M/uL Hgb 5.5 L* (14.0-18.0) g/dl Hct 16.1 L* (42.0-52.0) % MCV (80.0-100.0) fL MCH (25.0-34.0) pg MCHC (32.0-36.0) g/dL RDW Std Deviation (36.4-46.3) fL RDW Coeff of Shanelle (11.5-14.5) % Plt Count (130-400) K/uL MPV (9.4-12.4) fL Haptoglobin Sodium (136-145) mmol/L Potassium (3.5-5.1) mmol/L Chloride (98-107) mmol/L Carbon Dioxide (21-32) mmol/L Anion Gap (3-11) BUN (6-23) mg/dl Creatinine (0.6-1.4) mg/dl Est Cr Clr Drug Dosing ml/min Est GFR ( Amer) ml/min Est GFR (Non-Af Amer) ml/min BUN/Creatinine Ratio (10-20) Glucose (70-99(Fasting)) mg/dl POC Glucose 151 H (70-99) mg/dl Calcium (8.6-10.3) mg/dl Phosphorus (2.5-4.9) mg/dl Magnesium (1.7-2.4) mg/dl Iron (35-175) mcg/dl TIBC (250-450) mcg/dl Unsaturated IBC (155-355) mcg/dl Transferrin % Sat (20-50) % Ferritin (8-388) ng/ml Total Bilirubin (0.2-1.0) mg/dl Direct Bilirubin (0-0.2) mg/dl AST (13-39) U/L ALT (7-52) U/L Alkaline Phosphatase (34-104) U/L Lactate Dehydrogenase (86-244) U/L B-Natriuretic Peptide (0-100) pg/ml Total Protein (6.0-8.3) gm/dl Albumin (3.4-5.0) gm/dl Globulin (2.5-4.0) gm/dl Albumin/Globulin Ratio (0.9-2) Vitamin B12 (180-914) pg/ml 25-OH Vitamin D Total (30-100) ng/ml Folate (>5.38) ng/ml Urine Color Urine Appearance (Clear) Urine pH (4.5-7.5) Ur Specific [place] (1.000-1.030) Urine Protein (Negative) Urine Glucose (UA) (Negative) Urine Ketones (Negative) Urine Blood (Negative) Urine Nitrite (Negative) Urine Bilirubin (Negative) Urine Urobilinogen (Negative) Ur Leukocyte Esterase (Negative) Urine WBC (Auto) (0-5) /hpf Urine RBC (Auto) (0-2) /hpf U Hyaline Cast (Auto) (0-2) /lpf U Epithel Cells (Auto) (0-2) /hpf Urine Bacteria (Auto) (None Seen) Hyaline Casts (None Presnt) /lpf Granular Casts (None Prsent) /lpf Blood Type O Positive Antibody Screen NEGATIVE Crossmatch See Detail 09/03/23 09/02/23 09/02/23 Range/Units 04:14 Unknown 20:34 WBC 9.42 (4.8-10.8) K/ul RBC 1.98 L (4.70-6.10) M/uL Hgb 5.8 L* (14.0-18.0) g/dl Hct 17.1 L* (42.0-52.0) % MCV 86.4 (80.0-100.0) fL MCH 29.3 (25.0-34.0) pg MCHC 33.9 (32.0-36.0) g/dL RDW Std Deviation 42.5 (36.4-46.3) fL RDW Coeff of Shanelle 13.4 (11.5-14.5) % Plt Count 153 (130-400) K/uL MPV 10.3 (9.4-12.4) fL Haptoglobin Sodium 135 L (136-145) mmol/L Potassium 4.6 (3.5-5.1) mmol/L Chloride 103 (98-107) mmol/L Carbon Dioxide 28 (21-32) mmol/L Anion Gap 4 (3-11) BUN 36 H (6-23) mg/dl Creatinine 1.06 (0.6-1.4) mg/dl Est Cr Clr Drug Dosing 63.5 ml/min Est GFR ( Amer) 76.4 ml/min Est GFR (Non-Af Amer) 66.0 ml/min BUN/Creatinine Ratio 34.0 H (10-20) Glucose 143 H (70-99(Fasting)) mg/dl POC Glucose 179 H (70-99) mg/dl Calcium 7.7 L (8.6-10.3) mg/dl Phosphorus 2.2 L (2.5-4.9) mg/dl Magnesium 2.5 H (1.7-2.4) mg/dl Iron (35-175) mcg/dl TIBC (250-450) mcg/dl Unsaturated IBC (155-355) mcg/dl Transferrin % Sat (20-50) % Ferritin (8-388) ng/ml Total Bilirubin 0.6 (0.2-1.0) mg/dl Direct Bilirubin (0-0.2) mg/dl AST 32 (13-39) U/L ALT 12 (7-52) U/L Alkaline Phosphatase 41 (34-104) U/L Lactate Dehydrogenase (86-244) U/L B-Natriuretic Peptide 31 (0-100) pg/ml Total Protein 5.1 L (6.0-8.3) gm/dl Albumin 3.0 L (3.4-5.0) gm/dl Globulin 2.1 L (2.5-4.0) gm/dl Albumin/Globulin Ratio 1.4 (0.9-2) Vitamin B12 (180-914) pg/ml 25-OH Vitamin D Total 22.0 L (30-100) ng/ml Folate (>5.38) ng/ml Urine Color Yellow Urine Appearance Clear (Clear) Urine pH 5.5 (4.5-7.5) Ur Specific [place] 1.016 (1.000-1.030) Urine Protein Negative (Negative) Urine Glucose (UA) Negative (Negative) Urine Ketones Negative (Negative) Urine Blood Trace H (Negative) Urine Nitrite Negative (Negative) Urine Bilirubin Negative (Negative) Urine Urobilinogen Negative (Negative) Ur Leukocyte Esterase 1+ H (Negative) Urine WBC (Auto) 0-5 (0-5) /hpf Urine RBC (Auto) 0-2 (0-2) /hpf U Hyaline Cast (Auto) >20 H (0-2) /lpf U Epithel Cells (Auto) 0-2 (0-2) /hpf Urine Bacteria (Auto) None Seen (None Seen) Hyaline Casts Present A (None Presnt) /lpf Granular Casts Present A (None Prsent) /lpf Blood Type Antibody Screen Crossmatch 09/02/23 09/02/23 09/02/23 Range/Units 16:14 15:39 11:58 WBC (4.8-10.8) K/ul RBC (4.70-6.10) M/uL Hgb 7.1 L (14.0-18.0) g/dl Hct 21.3 L (42.0-52.0) % MCV (80.0-100.0) fL MCH (25.0-34.0) pg MCHC (32.0-36.0) g/dL RDW Std Deviation (36.4-46.3) fL RDW Coeff of Shanelle (11.5-14.5) % Plt Count (130-400) K/uL MPV (9.4-12.4) fL Haptoglobin Pending Sodium 135 L (136-145) mmol/L Potassium 4.3 D (3.5-5.1) mmol/L Chloride 103 (98-107) mmol/L Carbon Dioxide 28 (21-32) mmol/L Anion Gap 4 (3-11) BUN 37 H (6-23) mg/dl Creatinine 1.32 (0.6-1.4) mg/dl Est Cr Clr Drug Dosing 51.0 ml/min Est GFR ( Amer) 58.6 ml/min Est GFR (Non-Af Amer) 50.6 ml/min BUN/Creatinine Ratio 28.0 H (10-20) Glucose 206 H (70-99(Fasting)) mg/dl POC Glucose 126 H (70-99) mg/dl Calcium 7.5 L (8.6-10.3) mg/dl Phosphorus (2.5-4.9) mg/dl Magnesium (1.7-2.4) mg/dl Iron 13 L (35-175) mcg/dl TIBC 191 L (250-450) mcg/dl Unsaturated IBC 178 (155-355) mcg/dl Transferrin % Sat 7 L (20-50) % Ferritin 126.8 (8-388) ng/ml Total Bilirubin 0.5 (0.2-1.0) mg/dl Direct Bilirubin 0.1 (0-0.2) mg/dl AST (13-39) U/L ALT (7-52) U/L Alkaline Phosphatase (34-104) U/L Lactate Dehydrogenase 148 (86-244) U/L B-Natriuretic Peptide (0-100) pg/ml Total Protein (6.0-8.3) gm/dl Albumin (3.4-5.0) gm/dl Globulin (2.5-4.0) gm/dl Albumin/Globulin Ratio (0.9-2) Vitamin B12 387 (180-914) pg/ml 25-OH Vitamin D Total (30-100) ng/ml Folate 15.09 (>5.38) ng/ml Urine Color Urine Appearance (Clear) Urine pH (4.5-7.5) Ur Specific [place] (1.000-1.030) Urine Protein (Negative) Urine Glucose (UA) (Negative) Urine Ketones (Negative) Urine Blood (Negative) Urine Nitrite (Negative) Urine Bilirubin (Negative) Urine Urobilinogen (Negative) Ur Leukocyte Esterase (Negative) Urine WBC (Auto) (0-5) /hpf Urine RBC (Auto) (0-2) /hpf U Hyaline Cast (Auto) (0-2) /lpf U Epithel Cells (Auto) (0-2) /hpf Urine Bacteria (Auto) (None Seen) Hyaline Casts (None Presnt) /lpf Granular Casts (None Prsent) /lpf Blood Type Antibody Screen Crossmatch Diagnostic Findings CT angio abdomen pelvis w con CLINICAL HISTORY: 78 years-old Male with anemia, recent abd surgery. Acute generalized abdominal pain with anemia. Recent abdominal surgery. COMPARISON STUDY: 08/31/2023 TECHNIQUE: Following the IV administration of 115 cc of Optiray, CT angiogram of the abdomen and pelvis was performed from the lung bases the proximal femora. Images are reviewed in the axial, sagittal, and coronal planes. 3-D MIPS images are created and assessed. All measurements were obtained according to NASCET criteria. IV contrast was administered without complication. A dose lowering technique was utilized adhering to the principles of ALARA. CT DOSE: 1359.34 mGy.cm FINDINGS: CTA: Mild cardiomegaly. Dpve-[id number]-[id number] atherosclerosis of the abdominal aorta without aneurysm or dissection. There is patency of the iliac and femoral arteries. The celiac trunk, superior and inferior mesenteric and renal arteries are patent. No areas of active extravasation identified. CT ABDOMEN/PELVIS: The patient has history of prior partial small bowel resection and recent cecal volvulus was obstruction. Surgical notes that the patient has recent exploratory laparotomy with resection of right colon with reanastomosis. There is redundancy of the residual colon. There are a few scattered noninflamed colonic diverticula. There is wall thickening of the ileocolic anastomosis with numerous loops of circumferential ileal wall thickening upstream to the anastomosis. Additionally, these loops are mildly dilated measuring up to 3.6 cm. A few areas of suggested pneumatosis involves the small bowel loops, notably images 276 and 266 series 3 within the left lower quadrant. No definite bowel obstruction. Mesenteric edema with trace ascites and small amount of pneumoperitoneum. Unremarkable spleen, pancreas and adrenal glands. Distended gallbladder with cholelithiasis. Heterogeneous liver with scattered punctate calcifications. No hydronephrosis. There are a few probable cysts of the kidneys. Prostamegaly. Decompressed urinary bladder with Torres catheter. Fat and fluid filled small right femoral hernia. No acute fracture. Trace pleural effusions with mild dependent bibasilar consolidation. Lucent focus in the right proximal femur is favored to be benign. Into midline skin merari with debris-filled incision. IMPRESSION: 1. Unremarkable CTA component of the study. 2. Postoperative changes of the abdomen as above. There is circumferential wall thickening involving the ileocolic anastomosis with numerous loops of dilated ileum upstream to the anastomosis demonstrating circumferential wall thickening with equivocal pneumatosis. These findings are nonspecific and may be on a postoperative basis however should be correlated clinically to exclude ischemia. 3. Resolution of the previously seen volvulus. No definite obstruction. 4. Small pleural effusions with mild bibasilar atelectasis. 5. Additional findings as above. ACT 112: Negative or not required by law. (2) Anemia Anemia type: unspecified type Qualified Code(s): D64.9 - Anemia, unspecified
--- NOTE | 2023-09-03 08:35 | CT Scan Report ---
CT angio abdomen pelvis w con CLINICAL HISTORY: 78 years-old Male with anemia, recent abd surgery. Acute generalized abdominal p ain with anemia. Recent abdominal surgery. COMPARISON STUDY: 08/31/2023 TECHNIQUE: Following the IV administration of 115 cc of Optiray, CT angiogram of the abdomen and pelv is was performed from the lung bases the proximal femora. Images are reviewed in the axial, sagittal, and coronal planes. 3-D MIPS images are created and assessed. All measurements were obtained accordi ng to NASCET criteria. IV contrast was administered without complication. A dose lowering technique was utilized adhering to the principles of ALARA. CT DOSE: 1359.34 mGy.cm FINDINGS: CTA: Mild cardiomegaly. [id number]-[id number] atherosclerosis of the abdominal aorta without aneurysm or dissec tion. There is patency of the iliac and femoral arteries. The celiac trunk, superior and inferior mes enteric and renal arteries are patent. No areas of active extravasation identified. CT ABDOMEN/PELVIS: The patient has history of prior partial small bowel resection and recent cecal volvulus was obstruct ion. Surgical notes that the patient has recent exploratory laparotomy with resection of right colon with reanastomosis. There is redundancy of the residual colon. There are a few scattered noninflamed colonic diverticula. There is wall thickening of the ileocolic anastomosis with numerous loops of cir cumferential ileal wall thickening upstream to the anastomosis. Additionally, these loops are mildly dilated measuring up to 3.6 cm. A few areas of suggested pneumatosis involves the small bowel loops, notably images 276 and 266 series 3 within the left lower quadrant. No definite bowel obstruction. Me senteric edema with trace ascites and small amount of pneumoperitoneum. Unremarkable spleen, pancreas and adrenal glands. Distended gallbladder with cholelithiasis. Heteroge neous liver with scattered punctate calcifications. No hydronephrosis. There are a few probable cysts of the kidneys. Prostamegaly. Decompressed urinary bladder with Torres catheter. Fat and fluid filled small right femoral hernia. No acute fracture. Trace pleural effusions with mild dependent bibasilar consolidation. Lucent focus in the right proximal femur is favored to be benign. Into midline skin s taples with debris-filled incision. IMPRESSION: 1. Unremarkable CTA component of the study. 2. Postoperative changes of the abdomen as above. There is circumferential wall thickening involving the ileocolic anastomosis with numerous loops of dilated ileum upstream to the anastomosis demonstrat ing circumferential wall thickening with equivocal pneumatosis. These findings are nonspecific and ma y be on a postoperative basis however should be correlated clinically to exclude ischemia. 3. Resolution of the previously seen volvulus. No definite obstruction. 4. Small pleural effusions with mild bibasilar atelectasis. 5. Additional findings as above. ACT 112: Negative or not required by law. The above report was generated using voice recognition software. It may contain grammatical, syntax o r spelling errors. Electronically signed by: Mark Stafford M.D. 09/03/2023 8:34 AM
[2023-09-03] MEDS: TAMSULOSIN HCL 0.4 MG CAP PO SCH (08:44)
[2023-09-03] MEDS: PANTOprazole 40 MG TAB PO SCH (08:44)
[2023-09-03] MEDS: FOLIC ACID 1 MG in SYRINGE 9.8 ML IV SCH (08:48)
[2023-09-03] MEDS: IRON SUCROSE 300 MG in SODIUM CHLORIDE 0.9% 250 ML IV SCH (08:48)
--- NOTE | 2023-09-03 09:29 | Electrocardiogram Report ---
Test Reason : Blood Pressure : / mmHG Vent. Rate : 067 BPM Atrial Rate : 067 BPM P-R Int : 144 ms QRS Dur : 096 ms QT Int : 394 ms P-R-T Axes : 082 000 077 degrees QTc Int : 416 ms Sinus rhythm with Premature atrial complexes Minimal voltage criteria for LVH, may be normal variant ( R in aVL ) Nonspecific T wave abnormality When compared with ECG of 17-OCT-1999 07:14, Premature ventricular complexes are no longer Present Premature atrial complexes are now Present T wave amplitude has decreased in Anterior leads Confirmed by Bart Wheeler ([id number]) on 09/03/2023 9:28:47 AM Referred By: [facility] Confirmed By:Bart Wheeler
[2023-09-03] MEDS: ACETAMINOPHEN 325 MG TAB PO ONE (09:39)
[2023-09-03] MEDS ORDERED: FUROSEMIDE INJ 20 MG/2 ML VIAL IV ONE (10:00)
[2023-09-03] MEDS: CYANOCOBALAMIN 1000 MCG/ML VIAL IM SCH (10:28)
--- NOTE | 2023-09-03 10:33 | Hospitalist Progress Note ---
Date of Service September 03, 2023 Assessment & Plan (1) Volvulus of intestine: Plan: Mr. Aceves is an 78 year old gentleman with past medical history notable for HFpEF, HTN, HLD, BPH, prior tobacco use, GERD, who is admitted due to cecal volvulus. Patient is now s/p exlap 08/31 with right colon resection. Postoperative course complicated by GENE and post-operative anemia Patient otherwise reports feeling subjectively well and tolerating PO CLD. Patient with precipitous drop in HGB but no localizing factors--soft abdomen, negative CTA. Work up not suggestive of hemolysis, but will order VAISHNAVI/peripheral smear/retic. Patient declines transfusion--optimizing with iron/b12/folate at this time. #Post-operative hypotension #Hypertensive urgency -Initial consult for hypertension, patient with tachycardia pre/post op, started on metoprolol 2.5 q6 hours, now NGT removed and on CLD, Continue home metoprolol 12.5mg BID Hold other home medications at this time #Acute anemia, dilutional and post-op losses? -Hemoglobin prior to procedure 14, now postop day 1 7; hgb from 2019 ~10, suspect likely combination of dehydration for elevated value on admission. Patient now s/p IVF and procedure, suspect dilutional and post-op losses given current hemodynamic stability and clinical improvement. Given age, will obtain anemia labs for any optimization -Anemia labs with iron 13, transferrin 7%,ferritin 126.8, bili normal, ldh normal, lfts normal, BUN 36 Repeat H/H q 12, retic/peripheral smear/add diff Declines transfusion 2/2 buddhism affiliation -Start Iron x 3 days, b12, folate infusion #GENE #hyperkalemia likely prerenal/ATN 2/2 hypotension, contrast Lasix administered yesterday am 2/2 hyperkalemia and crackles Hold home diuretics, continue IVF and encourage PO Avoid nephrotoxic agents Hold home ACEi/hctz Strict I/Os Continue ruiz Insulin/dextrose, IVF for hyperk Nephrology consulted, managing K with Lokelma #Chronic bilateral lower extremity edema On lasix 20mg daily, will hold 2/2 above GENE Patient reports stable/chronic in nature BNP 31 #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 STOP Heparin subcu as per postop orders Thank you for this consultation. We will follow the patient with you during their hospital stay. You can reach a member of the [facility] Hospitalist Team 14/12 via [employer] [facility] Admission and Anticipated Discharge Date Admission Date: September 01, 2023 Subjective Patient reports feeling "really good" after his procedure. He denies any chest pain, sob, palpitations, dizziness, fatigue, abdominal pain/back pain, or other acute concerns Denies any bowel movements, +flatus Appetite strong Hgb down to 5 but patient declines transfusion as he is Jevhov[employer]'s witness Physical Exam Constitutional: WD/WN, vitals as above Respiratory: normal respiratory effort, lungs clear to auscultation Cardiovascular: RRR, no murmur, no edema Gastrointestinal (Abdomen): normal bowel sounds, soft, nontender, no hepatosplenomegaly Surgical Dressing CDI Results & Data Results & Data Vital Signs (Past 12 Hours) Vital Signs Temp Pulse Pulse Resp BP Pulse Ox Pulse Ox 09/03/23 07:35 36.5 C 90 18 117/69 93 09/03/23 06:18 90 09/03/23 04:07 94 09/03/23 03:36 36.8 C 101 H 20 117/62 94 09/03/23 03:22 107 H 19 93 09/02/23 23:05 105 H 24 95 O2 Del Method O2 Del Method O2 Flow Rate 09/03/23 07:35 Room Air 09/03/23 06:18 09/03/23 04:07 CPAP 09/03/23 03:36 Room Air, CPAP 09/03/23 03:22 2 09/02/23 23:05 2 Laboratory Results Short CBC 09/02/23 09/03/23 09/03/23 Range/Units 11:58 04:14 06:03 WBC 9.42 (4.8-10.8) K/ul Hgb 7.1 L 5.8 L* 5.5 L* (14.0-18.0) g/dl Hct 21.3 L 17.1 L* 16.1 L* (42.0-52.0) % Plt Count 153 (130-400) K/uL BMP 09/02/23 09/03/23 15:39 04:14 Sodium 135 L 135 L Potassium 4.3 D 4.6 Chloride 103 103 Carbon Dioxide 28 28 BUN 37 H 36 H Creatinine 1.32 1.06 Glucose 206 H 143 H Calcium 7.5 L 7.7 L Liver Function 09/02/23 09/03/23 Range/Units 15:39 04:14 Total Bilirubin 0.5 0.6 (0.2-1.0) mg/dl Direct Bilirubin 0.1 (0-0.2) mg/dl AST 32 (13-39) U/L ALT 12 (7-52) U/L Alkaline Phosphatase 41 (34-104) U/L Albumin 3.0 L (3.4-5.0) gm/dl Urine 09/02/23 Range/Units Unknown Urine Color Yellow Urine Appearance Clear (Clear) Urine pH 5.5 (4.5-7.5) Ur Specific [place] 1.016 (1.000-1.030) Urine Protein Negative (Negative) Urine Glucose (UA) Negative (Negative) Medications Administered Home Medications Medication Instructions Recorded Confirmed Last Taken amlodipine 10 mg tablet 10 mg PO DAILY 01/01/19 09/01/23 Unknown atorvastatin 10 mg tablet 10 mg PO HS 01/01/19 09/01/23 Unknown lisinopril 20 1 tab PO DAILY 01/01/19 09/01/23 Unknown mg-hydrochlorothiazide 25 mg tablet metoprolol tartrate 25 mg tablet 12.5 mg PO BID 01/01/19 09/01/23 Unknown naproxen 500 mg tablet,delayed 500 mg PO DAILY Pain 01/01/19 09/01/23 Unknown release omeprazole 20 mg capsule,delayed 20 mg PO DAILY 01/01/19 09/01/23 Unknown release tamsulosin 0.4 mg capsule 0.4 mg PO DAILY 01/01/19 09/01/23 Unknown Bacmin 1 PO DAILY 09/01/23 Unknown Lasix 20 mg PO DAILY 09/01/23 09/01/23 Unknown Active Medications Generic Name Dose Route Start Last Admin Trade Name Freq PRN Reason Stop Dose Admin Atorvastatin Calcium 10 mg 09/02/23 21:00 09/02/23 20:23 Atorvastatin 10 Mg Tab PO 10/02/23 20:59 10 mg HS ZULEIMA Administration Cyanocobalamin 1,000 mcg 09/03/23 09:00 09/03/23 10:28 Cyanocobalamin 1000 Mcg/Ml Vial IM 09/09/23 09:01 1,000 mcg QAM ZULEIMA Administration Piperacillin Sod/Tazobactam 100 mls @ 25 mls/hr 09/01/23 08:00 09/03/23 08:44 Sod 4.5 gm/ Dextrose IV 09/05/23 07:59 25 mls/hr Q8H ZULEIMA Administration Protocol Iron Sucrose 300 mg/ Sodium 265 mls @ 176.667 mls/hr 09/03/23 09:00 09/03/23 10:21 Chloride IV 09/06/23 08:59 Infused DAILY ZULEIMA Infusion Folic Acid 1 mg/ Syringe 10 mls @ 5 mls/min 09/03/23 09:00 09/03/23 08:48 IV 10/03/23 08:59 5 mls/min QAM ZULEIMA Administration Metoprolol Tartrate 12.5 mg 09/02/23 21:00 09/03/23 08:43 Metoprolol Tartrate 25 Mg Tab PO 10/02/23 20:59 12.5 mg BID ZULEIMA Administration Pantoprazole Sodium 40 mg 09/03/23 09:00 09/03/23 08:44 Pantoprazole 40 Mg Tab PO 10/03/23 08:59 40 mg DAILY ZULEIMA Administration Sodium Zirconium Cyclosilicate 10 gm 09/02/23 21:00 09/03/23 10:28 Sodium Zirconium Cyclosilicate 10 Gm Packet PO 09/04/23 14:01 10 gm TID ZULEIMA Administration Tamsulosin HCl 0.4 mg 09/03/23 09:00 09/03/23 08:44 Tamsulosin Hcl 0.4 Mg Cap PO 10/03/23 08:59 0.4 mg DAILY ZULEIMA Administration
[2023-09-03 12:04] LABS: Basophils # (auto) 0.01 K/uL (0.00-0.20); Basophils % (auto) 0.1 %; Eosinophils # (auto) 0.01 K/uL (0.00-0.50); Eosinophils % (auto) 0.1 %; Immature Granulocytes # (auto) 0.06 K/uL (0.01-0.20); Immature Granulocytes % (auto) 0.6 %; Immature Retic Fraction 24.5 % (2.3-15.9); Lymphocytes # (auto) 0.78 K/uL (1.20-3.40); Lymphocytes % (auto) 8.1 %; Monocytes # (auto) 0.84 K/uL (0.11-0.59); Monocytes % (auto) 8.7 %; Neutrophils # (auto) 7.91 K/uL (1.40-6.50); Neutrophils % (auto) 82.4 %; Reticulated Hemoglobin 28.9 pg (28.2-36.6); Reticulocyte % 3.32 % (0.50-2.00)
[2023-09-03 12:08] LABS: Hematocrit (blood only) 19.1 % (42.0-52.0); Hemoglobin 6.4 g/dl (14.0-18.0)
--- NOTE | 2023-09-03 12:22 | Communication Note ---
Date of Service: September 03, 2023 Patient was seen and examined. He denies any shortness of breath, racing heart rate, lightheadedness. He has continued to have multiple maroon bowel movements with blood clots. A long discussion with him concerning the findings on laboratory evaluation and CT scan. CT scan did not demonstrate any evidence of active extravasation. given his bloody bowel movements, he most likely has had significant venous oozing from his staple line in the right colon. He is a [employer], and I confirmed with him that he will not accept blood transfusions. He is undergoing iron infusion as well as folic acid treatment. We will place him on erythropoietin. His most recent hemoglobin was increased to 6.4. Hematocrit was 18.1. After long discussion with him where all his questions were answered, the plan will be to continue to monitor with every 6 hours H/H. Continue iron infusion and folic acid treatment. Continue to monitor.
[2023-09-03 12:30] LABS: RBC Morphology Unremarkable
[2023-09-03] MEDS: PANTOprazole 40 MG in DEXTROSE 5% MINI-B 100 ML IV SCH (14:00)
[2023-09-03 17:25] LABS: Hematocrit (blood only) 19.8 % (42.0-52.0); Hemoglobin 6.7 g/dl (14.0-18.0)
[2023-09-03] MEDS: ERGOCALCIFEROL 1250 MCG (50,000 UNITS) CAP PO SCH (18:23)
[2023-09-03 23:06] LABS: Hematocrit (blood only) 17.7 % (42.0-52.0); Hemoglobin 5.9 g/dl (14.0-18.0)
[2023-09-04 05:57] LABS: Hemoglobin 5.3 g/dl (14.0-18.0); Mean Corpuscular Hemoglobin 28.8 pg (25.0-34.0); Mean Corpuscular Hgb Conc 33.1 g/dL (32.0-36.0); Mean Platelet Volume 9.6 fL (9.4-12.4); Nucleated RBC # (auto) 0.06 K/uL (0.00-0.12); Nucleated RBC % (auto) 0.9 %; Platelet Count 149 K/uL (130-400); RDW Coefficient of Variation 13.2 % (11.5-14.5); RDW Standard Deviation 42.1 fL (36.4-46.3); Red Blood Count 1.84 M/uL (4.70-6.10); White Blood Count 6.83 K/ul (4.8-10.8)
--- NOTE | 2023-09-04 06:02 | Surgery Progress Note ---
Date of Service September 04, 2023 Assessment & Plan (1) Volvulus of intestine: Plan: Patient is status post right hemicolectomy on 09/01/2023 (postop day #3) Continue analgesics as needed Continue antiemetics as needed Mobilize as able Continue current diet Patient is noted to have profound postoperative anemia: CT angiogram of the abdomen on 09/03/2023 showed postoperative changes with no active extravasation of blood Serial hemoglobin and hematocrits have been followed; hemoglobin was 6.7 yesterday and this morning has dropped to 5.3 As the patient is a [employer] he does not accept blood transfusions Continue treatment with nontransfusion modalities including iron, vitamin B12, and folic acid Will continue to follow serial labs Admission and Anticipated Discharge Date Admission Date: September 01, 2023 Supervising Physician Co-Signing Physician Notes pnt s&e, labs reviewed, agree w/ above. s/p right hemicolectomy for cecal volvulus, post op anemia likely dilutional and post op staple line bleed, JW so no blood products. Asymptomatic, vss. abd soft, appropriately ttp, +flatus. cont to monitor, no surgical intervention. adv to full liquids. cont current therapy. Subjective Patient is resting comfortably in bed. He denies any lightheadedness, shortness of breath, or chest pain. He denies any nausea or vomiting. He notes he is tolerating clear liquids without any nausea or vomiting. He denies any worsening abdominal pain I discussed with chef de froid nurse attending the patient and she reports no issues at this time Physical Exam Gastrointestinal (Abdomen): Abdomen is soft and nondistended. There is minimal pain with palpation near incision. Incision is intact with merari. Results & Data Vital Signs (Past 12 Hours) Vital Signs Temp Pulse Pulse Resp BP Pulse Ox O2 Del Method 09/04/23 03:00 36.7 C 86 20 105/60 92 Room Air 09/03/23 22:51 75 09/03/23 22:39 37.3 C 83 20 115/84 95 CPAP 09/03/23 21:00 92 H 19 94 09/03/23 19:49 37.0 C 101 H 20 144/55 H 96 Nasal CPAP 09/03/23 18:46 94 H 19 93 O2 Flow Rate FiO2 09/04/23 03:00 09/03/23 22:51 09/03/23 22:39 2 09/03/23 21:00 98 09/03/23 19:49 2 09/03/23 18:46 2 PG Care Time/CCT Total # of Minutes Spent Total Time Spent with Patient: Total time spent is greater than 50% in coordination of care (as documented) at patient's floor/unit and/or counseling patient: Coding Level of Care Code 21043 Post Operative Follow-Up Diagnoses Volvulus of intestine K56.2
[2023-09-04 06:07] LABS: BUN Creatinine Ratio 32.9 (10-20); Calcium 7.5 mg/dl (8.6-10.3); Creatinine Clr Calc Pharmacy 79.2 ml/min; Est GFR (African American) 95.4 ml/min; Est GFR (Non-African American) 82.3 ml/min; Magnesium 2.4 mg/dl (1.7-2.4); Phosphorus 1.8 mg/dl (2.5-4.9); Potassium 3.3 mmol/L (3.5-5.1)
[2023-09-04] MEDS ORDERED: POTASSIUM PHOS 3 MMOL/1 ML INFUSION IV STA (07:09)
--- NOTE | 2023-09-04 07:15 | Hospitalist Progress Note ---
Date of Service September 04, 2023 Assessment & Plan (1) Volvulus of intestine: Plan: Mr. Aceves is an 78 year old gentleman with past medical history notable for HFpEF, HTN, HLD, BPH, prior tobacco use, GERD, who is admitted due to cecal volvulus. Patient is now s/p exlap 08/31 with right colon resection. Postoperative course complicated by GENE and post-operative anemia Patient otherwise reports feeling subjectively well and tolerating PO CLD. Patient with precipitous drop in HGB but no localizing factors--soft abdomen, negative CTA. Work up not suggestive of hemolysis. Reticulocyte count elevated, suggestive of proper bone marrow response. Patient declines transfusion--optimizing with iron/b12/folate at this time. #Acute anemia, dilutional and post-op losses? -Hemoglobin prior to procedure 14, now postop day 1 7; hgb from 2019 ~10, suspect likely combination of dehydration for elevated value on admission. Patient now s/p IVF and procedure, suspect dilutional and post-op losses given current hemodynamic stability and clinical improvement. Given age, will obtain anemia labs for any optimization -Anemia labs with iron 13, transferrin 7%,ferritin 126.8, bili normal, ldh normal, lfts normal, BUN 36 Repeat H/H q 12, retic/peripheral smear/add diff Declines transfusion 2/2 synagogue affiliation -Continue Iron x 3 days, b12, folate infusion Retic elevated, indicative of bleeding, proper bone marrow response Peripheral Smear is normal--no hemolytic signs, MDS or other issues EPO will not be effective without replacement of iron stores #Post-operative hypotension #Hypertensive urgency -Initial consult for hypertension, patient with tachycardia pre/post op, started on metoprolol 2.5 q6 hours, now NGT removed and on CLD, Continue home metoprolol 12.5mg BID Hold other home medications at this time #Hypophosphatemia #GENE *resolved #hyperkalemia *resolved likely prerenal/ATN 2/2 hypotension, contrast Lasix administered yesterday am 2/2 hyperkalemia and crackles Hold home diuretics, continue IVF and encourage PO Avoid nephrotoxic agents Hold home ACEi/hctz Strict I/Os Continue ruiz Insulin/dextrose, IVF for hyperk Nephrology consulted, managing K with Lokelma -Discontinued Lokelma IV phos replacement, Po K #Chronic bilateral lower extremity edema On lasix 20mg daily, will hold 2/2 above GENE Patient reports stable/chronic in nature BNP 31 #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 STOP Heparin subcu as per postop orders Thank you for this consultation. We will follow the patient with you during their hospital stay. You can reach a member of the [facility] Hospitalist Team 14/12 via [employer] Admission and Anticipated Discharge Date Admission Date: September 01, 2023 Subjective NAEO Reports feeling well, laughing and pleasant at bedside. Denies any active concerns including chest pain, palpitations, or other acute issues Physical Exam Constitutional: WD/WN, vitals as above Respiratory: normal respiratory effort, lungs clear to auscultation Cardiovascular: RRR, no murmur, no edema Gastrointestinal (Abdomen): normal bowel sounds, soft, nontender, no hepatosplenomegaly Results & Data Results & Data Vital Signs (Past 12 Hours) Vital Signs Temp Pulse Pulse Resp BP Pulse Ox O2 Del Method 09/04/23 06:13 92 H 09/04/23 03:00 36.7 C 86 20 105/60 92 Room Air 09/03/23 22:51 75 09/03/23 22:39 37.3 C 83 20 115/84 95 CPAP 09/03/23 21:00 92 H 19 94 09/03/23 19:49 37.0 C 101 H 20 144/55 H 96 Nasal CPAP O2 Flow Rate FiO2 09/04/23 06:13 09/04/23 03:00 09/03/23 22:51 09/03/23 22:39 2 09/03/23 21:00 98 09/03/23 19:49 2 Laboratory Results Short CBC 09/03/23 09/03/23 09/03/23 Range/Units 04:14 10:57 16:52 WBC 9.42 (4.8-10.8) K/ul Hgb 5.8 L* 6.4 L* 6.7 L* (14.0-18.0) g/dl Hct 17.1 L* 19.1 L* 19.8 L* (42.0-52.0) % Plt Count 153 (130-400) K/uL 09/03/23 09/04/23 Range/Units 22:51 05:31 WBC 6.83 (4.8-10.8) K/ul Hgb 5.9 L* 5.3 L* (14.0-18.0) g/dl Hct 17.7 L* 16.0 L* (42.0-52.0) % Plt Count 149 (130-400) K/uL BMP 09/04/23 05:31 Sodium 134 L Potassium 3.3 L D Chloride 101 Carbon Dioxide 28 BUN 28 H Creatinine 0.85 Glucose 132 H Calcium 7.5 L Medications Administered Home Medications Medication Instructions Recorded Confirmed Last Taken amlodipine 10 mg tablet 10 mg PO DAILY 01/01/19 09/01/23 Unknown atorvastatin 10 mg tablet 10 mg PO HS 01/01/19 09/01/23 Unknown lisinopril 20 1 tab PO DAILY 01/01/19 09/01/23 Unknown mg-hydrochlorothiazide 25 mg tablet metoprolol tartrate 25 mg tablet 12.5 mg PO BID 01/01/19 09/01/23 Unknown naproxen 500 mg tablet,delayed 500 mg PO DAILY Pain 01/01/19 09/01/23 Unknown release omeprazole 20 mg capsule,delayed 20 mg PO DAILY 01/01/19 09/01/23 Unknown release tamsulosin 0.4 mg capsule 0.4 mg PO DAILY 01/01/19 09/01/23 Unknown Bacmin 1 PO DAILY 09/01/23 Unknown Lasix 20 mg PO DAILY 09/01/23 09/01/23 Unknown Active Medications Generic Name Dose Route Start Last Admin Trade Name Freq PRN Reason Stop Dose Admin Atorvastatin Calcium 10 mg 09/02/23 21:00 09/03/23 20:32 Atorvastatin 10 Mg Tab PO 10/02/23 20:59 10 mg HS ZULEIMA Administration Cyanocobalamin 1,000 mcg 09/03/23 09:00 09/03/23 10:28 Cyanocobalamin 1000 Mcg/Ml Vial IM 09/09/23 09:01 1,000 mcg QAM ZULEIMA Administration Ergocalciferol 1,250 mcg 09/03/23 17:15 09/03/23 18:23 Ergocalciferol 1250 Mcg (50,000 Units) Cap PO 10/03/23 17:14 1,250 mcg Q7D ZULEIMA Administration Piperacillin Sod/Tazobactam 100 mls @ 25 mls/hr 09/01/23 08:00 09/04/23 04:21 Sod 4.5 gm/ Dextrose IV 09/05/23 07:59 Infused Q8H ZULEIMA Infusion Protocol Iron Sucrose 300 mg/ Sodium 265 mls @ 176.667 mls/hr 09/03/23 09:00 09/03/23 10:21 Chloride IV 09/06/23 08:59 Infused DAILY ZULEIMA Infusion Folic Acid 1 mg/ Syringe 10 mls @ 5 mls/min 09/03/23 09:00 09/03/23 08:48 IV 10/03/23 08:59 5 mls/min QAM ZULEIMA Administration Pantoprazole Sodium 40 mg/ 100 mls @ 20 mls/hr 09/03/23 11:30 09/04/23 04:19 Dextrose IV 10/03/23 11:29 8 mg/hr Q5H ZULEIMA 20 mls/hr Administration 8 MG/HR Metoprolol Tartrate 12.5 mg 09/02/23 21:00 09/03/23 20:32 Metoprolol Tartrate 25 Mg Tab PO 10/02/23 20:59 12.5 mg BID ZULEIMA Administration Pantoprazole Sodium 40 mg 09/03/23 09:00 09/03/23 08:44 Pantoprazole 40 Mg Tab PO 10/03/23 08:59 40 mg DAILY ZULEIMA Administration Tamsulosin HCl 0.4 mg 09/03/23 09:00 09/03/23 08:44 Tamsulosin Hcl 0.4 Mg Cap PO 10/03/23 08:59 0.4 mg DAILY ZULEIMA Administration
[2023-09-04] MEDS: POTASSIUM CHLORIDE CRTAB 20 MEQ TABCR PO STA (07:23)
[2023-09-04] MEDS: POTASSIUM PHOSPHATE 40 MMOL in SODIUM CHLORIDE 0.9% 1,000 ML IV ONE (07:47)
[2023-09-04 11:16] LABS: Hematocrit (blood only) 15.6 % (42.0-52.0); Hemoglobin 5.1 g/dl (14.0-18.0)
[2023-09-04 17:18] LABS: Hematocrit (blood only) 16.2 % (42.0-52.0); Hemoglobin 5.3 g/dl (14.0-18.0)
[2023-09-05] MEDS: ACETAMINOPHEN 325 MG TAB PO PRN (03:00)
--- NOTE | 2023-09-05 05:28 | Surgery Progress Note ---
Date of Service September 05, 2023 Assessment & Plan (1) Volvulus of intestine: Plan: Patient is status post right hemicolectomy on 09/01/2023 (postop day #4) Provide analgesics as needed Provide antiemetics as needed Discussed with nursing staff about further mobilizing the patient in order to assess for any symptomatology in the setting of low hemoglobin and hematocrit Continue current diet As previously noted the patient has profound postoperative anemia: CT angiogram of the abdomen on 09/03/2023 showed postoperative changes with no active extravasation of blood Serial hemoglobin and hematocrits have been followed; most recent hemoglobin was 5.3 As previously noted, the patient is a [employer] he does not accept blood transfusions Continue treatment with non-transfusion modalities including iron, vitamin B12, and folic acid Check a.m. labs when available Admission and Anticipated Discharge Date Admission Date: September 01, 2023 Supervising Physician Co-Signing Physician Notes pnt S&E, labs reviewed, agree w/ above. s/p right hemicolectomy for volvulus, acute on chronic anemia, JW so not blood products. Tolerating full liquids, +flatus, small non bloody bm yesterday. No symptoms of anemia. afvss, nad, aaox3. abd soft, nt, nd, incision c/d/i no infx. h/h 4.9/15.1, relatively stable. continue fulls, continue current management. Do not feel additional imaging warranted. h/h will take a long time to recover. Subjective Patient is resting comfortably in bed. He denies any chest pain, shortness of breath, or lightheadedness. He notes that he has not been out of bed in the past 24 hours. He is tolerating a full liquid diet without any nausea or vomiting and also denies worsening or exacerbation of abdominal pain. He notes that his bowels have moved since his surgery. I discussed with security project manager nurse attending the patient she does not voice any concerns noting that the patient has been hemodynamically stable throughout her shift despite his low blood counts. Physical Exam Gastrointestinal (Abdomen): Bowel sounds are present. Abdomen is soft and nondistended with appropriate tenderness near surgical incision. His incision is intact with merari with a small amount of serosanguineous drainage. Results & Data Vital Signs (Past 12 Hours) Vital Signs Temp Pulse Pulse Resp BP BP Pulse Ox 09/05/23 04:14 36.8 C 09/05/23 02:38 37.8 C H 93 H 18 126/71 91 09/05/23 02:19 90 19 94 09/04/23 22:36 37.5 C 89 16 127/68 96 09/04/23 22:08 84 09/04/23 21:17 09/04/23 21:00 93 H 93 09/04/23 19:56 36.6 C 107 H 16 136/66 92 O2 Del Method O2 Flow Rate 09/05/23 04:14 09/05/23 02:38 CPAP 09/05/23 02:19 09/04/23 22:36 CPAP 09/04/23 22:08 09/04/23 21:17 Nasal Cannula 2 09/04/23 21:00 09/04/23 19:56 Room Air PG Care Time/CCT Total # of Minutes Spent Total Time Spent with Patient: Total time spent is greater than 50% in coordination of care (as documented) at patient's floor/unit and/or counseling patient: Coding Level of Care Code 93198 Post Operative Follow-Up Diagnoses Volvulus of intestine K56.2
[2023-09-05 07:05] LABS: Hematocrit (blood only) 15.1 % (42.0-52.0); Hemoglobin 4.9 g/dl (14.0-18.0); Mean Corpuscular Hemoglobin 28.7 pg (25.0-34.0); Mean Corpuscular Hgb Conc 32.5 g/dL (32.0-36.0); Mean Corpuscular Volume 88.3 fL (80.0-100.0); Mean Platelet Volume 9.8 fL (9.4-12.4); Nucleated RBC # (auto) 0.18 K/uL (0.00-0.12); Nucleated RBC % (auto) 2.1 %; Platelet Count 149 K/uL (130-400); RDW Coefficient of Variation 13.2 % (11.5-14.5); RDW Standard Deviation 42.5 fL (36.4-46.3); Red Blood Count 1.71 M/uL (4.70-6.10)
[2023-09-05 07:33] LABS: BUN Creatinine Ratio 20.8 (10-20); Calcium 7.4 mg/dl (8.6-10.3); Creatinine Clr Calc Pharmacy 89.5 ml/min; Est GFR (African American) 99.3 ml/min; Est GFR (Non-African American) 85.7 ml/min; Magnesium 2.2 mg/dl (1.7-2.4); Phosphorus 1.8 mg/dl (2.5-4.9); Potassium 3.3 mmol/L (3.5-5.1)
--- NOTE | 2023-09-05 07:49 | Oncology Consultation ---
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 Hematology was consulted for anemia. Based on peripheral smear review, there is no evidence to suggest hemolysis. Has received IV iron sucrose 300 mg daily x 3 doses, parenteral B12 supplementation daily and folate supplementation daily. Labs obtained today show hemoglobin of 4.9 with hematocrit of 15.1. Patient understands risk of not accepting blood transfusion -Since ferritin is above 100, recommend starting erythropoietin 40,000 units IV/subcutaneous daily till hemoglobin is greater than 7 -Continue with B12 and folate supplementation daily. -Recommend giving another dose of IV iron sucrose tomorrow (total of 1200 mg) after which he can be switched to oral iron supplementation - vitamin C 500 mg p.o. 3 times daily -Decline in hemoglobin, concerning for blood loss. CTA abdomen and pelvis obtained on 09/03/2023 did not show any obvious evidence of blood loss. However, hemoglobin and hematocrit continues to decline. Would recommend considering repeating abdominal imaging Thank you for this consult. Hematology continue following closely while patient is in the hospital. Please feel free to call if you have any further questions History of Present Illness Reason for Consultation: JW, post op anemia, any further optimization Attending Physician: Kathleen Millan MD History of Present Illness Very pleasant 78-year-old gentleman presented with abdominal pain and diagnosed with cecal volvulus for which he is s/p right hemicolectomy. Hematology was consulted for severe anemia. Hemoglobin was noted to be 14 with hematocrit of 40.5 prior to surgery. Since then, hemoglobin/hematocrit has slowly declined with labs obtained today showing hemoglobin of 4.9 with hematocrit of 15.1 CT angio abdomen and pelvis on 09/03/2023 revealed circumferential wall thickening involving the ileocolic anastomosis with numerous loops of dilated ileum upstream to the anastomosis demonstrating circumferential wall thickening with equivocal pneumatosis. No evidence of bleeding was noted. Anemia labs revealed serum iron of 13, TIBC of 191, unsaturated iron binding capacity of 178, transferrin saturation of 7%, B12 level of 387 and folate level of 15.9. Reticulocyte count was 0.07. Peripheral smear review by pathology was unremarkable. 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 He was started on IV iron sucrose 300 mg daily on 09/03/2023 and has received a total of 3 doses so far, he is also on parenteral B12 supplementation 1000 mcg daily, folic acid 1 mg daily. He denies chest pain, shortness of breath, abdominal pain, nausea, vomiting. States that he had previously been diagnosed with iron deficiency for which he had received iron supplementation in the past. Allergies Allergy/AdvReac Type Severity Reaction Status Date / Time No Known Allergies Allergy Verified 01/01/19 11:57 Home Medications Medication Instructions Recorded Confirmed Type amlodipine 10 mg tablet 10 mg PO DAILY 01/01/19 09/01/23 History atorvastatin 10 mg tablet 10 mg PO HS 01/01/19 09/01/23 History lisinopril 20 1 tab PO DAILY 01/01/19 09/01/23 History mg-hydrochlorothiazide 25 mg tablet metoprolol tartrate 25 mg tablet 12.5 mg PO BID 01/01/19 09/01/23 History naproxen 500 mg tablet,delayed 500 mg PO DAILY Pain 01/01/19 09/01/23 History release omeprazole 20 mg capsule,delayed 20 mg PO DAILY 01/01/19 09/01/23 History release tamsulosin 0.4 mg capsule 0.4 mg PO DAILY 01/01/19 09/01/23 History Bacmin 1 PO DAILY 09/01/23 History Lasix 20 mg PO DAILY 09/01/23 09/01/23 History Patient History Medical History (Updated 09/05/23 @ 08:58 by Tonia Anderson MD) Throat cancer High cholesterol High blood pressure Social History Smoking Status: Former smoker Hx Alcohol Use: No Hx Substance Use: No Preferred Language: Azeri Communication Ability: Effective 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
[2023-09-05 08:49] LABS: Ferritin 387.6 ng/ml (8-388)
[2023-09-05] MEDS: EPOETIN ALFA 40,000 UNITS/ML VIAL SQ SCH (10:10)
--- NOTE | 2023-09-05 10:22 | Hospitalist Progress Note ---
Date of Service September 05, 2023 Assessment & Plan (1) Volvulus of intestine: Plan: Mr. Aceves is an 78 year old gentleman with past medical history notable for HFpEF, HTN, HLD, BPH, prior tobacco use, GERD, who is admitted due to cecal volvulus. Patient is now s/p exlap 08/31 with right colon resection. Postoperative course complicated by GENE and post-operative anemia Patient otherwise reports feeling subjectively well and tolerating PO CLD. Patient with precipitous drop in HGB but no localizing factors--soft abdomen, negative CTA. Work up not suggestive of hemolysis. Reticulocyte count elevated, suggestive of proper bone marrow response. Patient declines transfusion--optimizing with iron/b12/folate at this time. #Acute anemia, dilutional and post-op losses? -Hemoglobin prior to procedure 14, now postop day 1 7; hgb from 2019 ~10, suspect likely combination of dehydration for elevated value on admission. Patient now s/p IVF and procedure, suspect dilutional and post-op losses given current hemodynamic stability and clinical improvement. Given age, will obtain anemia labs for any optimization -Anemia labs with iron 13, transferrin 7%,ferritin 126.8, bili normal, ldh normal, lfts normal, BUN 36 Repeat H/H q 12, retic/peripheral smear/add diff Declines transfusion 2/2 scientology affiliation Hematology consulted for additional optimization given continued low hgb -Continue Iron for total 4 days, b12, folate infusion -Transition to PO iron there after 09/06 -Added vitamin C -Started EPO given improvement in Ferritin at 387 09/04 -Defer to primary for repeat imaging Retic elevated, indicative of bleeding, proper bone marrow response Peripheral Smear is normal--no hemolytic signs, MDS or other issues EPO will not be effective without replacement of iron stores #Post-operative hypotension #Hypertensive urgency -Initial consult for hypertension, patient with tachycardia pre/post op, started on metoprolol 2.5 q6 hours, now NGT removed and on CLD, Continue home metoprolol 12.5mg BID Hold other home medications at this time #Hypophosphatemia #GENE *resolved #hyperkalemia *resolved likely prerenal/ATN 2/2 hypotension, contrast Lasix administered yesterday am 2/2 hyperkalemia and crackles Hold home diuretics, continue IVF and encourage PO Avoid nephrotoxic agents Hold home ACEi/hctz Strict I/Os Continue ruiz Insulin/dextrose, IVF for hyperk Nephrology consulted, managing K with Lokelma -Discontinued Lokelma Start phos supplementation QID + x1 PO K #Chronic bilateral lower extremity edema On lasix 20mg daily, will hold 2/2 above GENE Patient reports stable/chronic in nature BNP 31 #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 STOP Heparin subcu as per postop orders Thank you for this consultation. We will follow the patient with you during their hospital stay. You can reach a member of the [facility] Hospitalist Team 14/12 via [employer] Admission and Anticipated Discharge Date Admission Date: September 01, 2023 Subjective NAEO Patient is in good spirits, denies any ongoing symptoms. Eager to start eating when surgery feels advancing diet is appropriate Physical Exam Constitutional: WD/WN, vitals as above Respiratory: normal respiratory effort, lungs clear to auscultation Cardiovascular: RRR, no murmur, no edema Gastrointestinal (Abdomen): normal bowel sounds, soft, nontender, no hepatosplenomegaly Results & Data Results & Data Vital Signs (Past 12 Hours) Vital Signs Temp Pulse Pulse Resp BP BP Pulse Ox 09/05/23 08:20 09/05/23 07:51 36.7 C 89 18 114/73 95 09/05/23 07:17 85 09/05/23 04:14 36.8 C 09/05/23 02:38 37.8 C H 93 H 18 126/71 91 09/05/23 02:19 90 19 94 09/04/23 22:36 37.5 C 89 16 127/68 96 O2 Del Method 09/05/23 08:20 Room Air 09/05/23 07:51 Room Air 09/05/23 07:17 09/05/23 04:14 09/05/23 02:38 CPAP 09/05/23 02:19 09/04/23 22:36 CPAP Laboratory Results Short CBC 09/04/23 09/04/23 09/05/23 Range/Units 10:42 16:20 05:46 WBC 8.40 (4.8-10.8) K/ul Hgb 5.1 L* 5.3 L* 4.9 L* (14.0-18.0) g/dl Hct 15.6 L* 16.2 L* 15.1 L* (42.0-52.0) % Plt Count 149 (130-400) K/uL BMP 09/05/23 05:46 Sodium 133 L Potassium 3.3 L Chloride 102 Carbon Dioxide 27 BUN 16 Creatinine 0.77 Glucose 120 H Calcium 7.4 L Medications Administered Home Medications Medication Instructions Recorded Confirmed Last Taken amlodipine 10 mg tablet 10 mg PO DAILY 01/01/19 09/01/23 Unknown atorvastatin 10 mg tablet 10 mg PO HS 01/01/19 09/01/23 Unknown lisinopril 20 1 tab PO DAILY 01/01/19 09/01/23 Unknown mg-hydrochlorothiazide 25 mg tablet metoprolol tartrate 25 mg tablet 12.5 mg PO BID 01/01/19 09/01/23 Unknown naproxen 500 mg tablet,delayed 500 mg PO DAILY Pain 01/01/19 09/01/23 Unknown release omeprazole 20 mg capsule,delayed 20 mg PO DAILY 01/01/19 09/01/23 Unknown release tamsulosin 0.4 mg capsule 0.4 mg PO DAILY 01/01/19 09/01/23 Unknown Bacmin 1 PO DAILY 09/01/23 Unknown Lasix 20 mg PO DAILY 09/01/23 09/01/23 Unknown Active Medications Generic Name Dose Route Start Last Admin Trade Name Freq PRN Reason Stop Dose Admin Acetaminophen 650 mg 09/05/23 02:48 09/05/23 03:00 Acetaminophen 325 Mg Tab PO 10/05/23 02:47 650 mg Q6H PRN Administration Pain or Fever Atorvastatin Calcium 10 mg 09/02/23 21:00 09/04/23 19:54 Atorvastatin 10 Mg Tab PO 10/02/23 20:59 10 mg HS ZULEIMA Administration Cyanocobalamin 1,000 mcg 09/03/23 09:00 09/05/23 08:12 Cyanocobalamin 1000 Mcg/Ml Vial IM 09/09/23 09:01 1,000 mcg QAM ZULEIMA Administration Epoetin Noble 40,000 units 09/05/23 09:30 09/05/23 10:10 Epoetin Noble 40,000 Units/Ml Vial SQ 10/05/23 09:29 40,000 units DAILY ZULEIMA Administration Ergocalciferol 1,250 mcg 09/03/23 17:15 09/03/23 18:23 Ergocalciferol 1250 Mcg (50,000 Units) Cap PO 10/03/23 17:14 1,250 mcg Q7D ZULEIMA Administration Iron Sucrose 300 mg/ Sodium 265 mls @ 176.667 mls/hr 09/03/23 09:00 09/05/23 10:00 Chloride IV 09/07/23 08:59 Infused DAILY ZULEIMA Infusion Folic Acid 1 mg/ Syringe 10 mls @ 5 mls/min 09/03/23 09:00 09/05/23 08:11 IV 10/03/23 08:59 5 mls/min QAM ZULEIMA Administration Pantoprazole Sodium 40 mg/ 100 mls @ 20 mls/hr 09/03/23 11:30 09/05/23 08:12 Dextrose IV 10/03/23 11:29 8 mg/hr Q5H ZULEIMA 20 mls/hr Administration 8 MG/HR Metoprolol Tartrate 12.5 mg 09/02/23 21:00 09/05/23 08:11 Metoprolol Tartrate 25 Mg Tab PO 10/02/23 20:59 12.5 mg BID ZULEIMA Administration Pantoprazole Sodium 40 mg 09/03/23 09:00 09/03/23 08:44 Pantoprazole 40 Mg Tab PO 10/03/23 08:59 40 mg DAILY ZULEIMA Administration Tamsulosin HCl 0.4 mg 09/03/23 09:00 09/05/23 08:11 Tamsulosin Hcl 0.4 Mg Cap PO 10/03/23 08:59 0.4 mg DAILY ZULEIMA Administration
[2023-09-05] MEDS: POTASSIUM CHLORIDE CRTAB 20 MEQ TABCR PO STA (11:52)
[2023-09-05] MEDS: ASCORBIC ACID 500 MG TAB PO SCH (12:53)
[2023-09-05] MEDS: POT PHOSPHATE MONOBASIC W/ SOD TAB PO SCH (12:53)
[2023-09-06 07:57] LABS: Hematocrit (blood only) 16.8 % (42.0-52.0); Hemoglobin 5.4 g/dl (14.0-18.0); Mean Corpuscular Hgb Conc 32.1 g/dL (32.0-36.0); Mean Corpuscular Volume 90.3 fL (80.0-100.0); Mean Platelet Volume 9.3 fL (9.4-12.4); Nucleated RBC # (auto) 0.16 K/uL (0.00-0.12); Platelet Count 171 K/uL (130-400); RDW Coefficient of Variation 13.4 % (11.5-14.5); RDW Standard Deviation 42.6 fL (36.4-46.3); Red Blood Count 1.86 M/uL (4.70-6.10); White Blood Count 8.09 K/ul (4.8-10.8)
[2023-09-06 08:16] LABS: Calcium 7.7 mg/dl (8.6-10.3); Magnesium 2.1 mg/dl (1.7-2.4); Potassium 3.7 mmol/L (3.5-5.1)
[2023-09-06 08:22] LABS: BUN Creatinine Ratio 13.3 (10-20); Creatinine Clr Calc Pharmacy 114.3 ml/min; Est GFR (African American) 110.1 ml/min; Phosphorus 1.9 mg/dl (2.5-4.9)
[2023-09-06] MEDS ORDERED: POTASSIUM PHOS 3 MMOL/1 ML INFUSION IV STA (08:52)
[2023-09-06] MEDS: FUROSEMIDE 20 MG TAB PO SCH (09:37)
--- NOTE | 2023-09-06 10:31 | Hospitalist Progress Note ---
Date of Service September 06, 2023 Assessment & Plan (1) Volvulus of intestine: Plan: Mr. Aceves is an 78 year old gentleman with past medical history notable for HFpEF, HTN, HLD, BPH, prior tobacco use, GERD, who is admitted due to cecal volvulus. Patient is now s/p exlap 08/31 with right colon resection. Postoperative course complicated by GENE and post-operative anemia Patient otherwise reports feeling subjectively well and tolerating PO CLD. Patient with precipitous drop in HGB but no localizing factors--soft abdomen, negative CTA. Work up not suggestive of hemolysis. Reticulocyte count elevated, suggestive of proper bone marrow response. Patient declines transfusion--optimizing with iron/b12/folate at this time. #Acute anemia, dilutional and post-op losses? -Hemoglobin prior to procedure 14, now postop day 1 7; hgb from 2019 ~10, suspect likely combination of dehydration for elevated value on admission. Patient now s/p IVF and procedure, suspect dilutional and post-op losses given current hemodynamic stability and clinical improvement. Given age, will obtain anemia labs for any optimization -Anemia labs with iron 13, transferrin 7%,ferritin 126.8, bili normal, ldh normal, lfts normal, BUN 36 Declines transfusion 2/2 lutheran affiliation Hematology consulted for additional optimization given continued low hgb -Discontinue IV Iron, s/p 4 days -Continue B12, folate infusion -Transition to PO iron -Continue vitamin C -Started EPO given improvement in Ferritin at 387 09/04 -Defer to primary for repeat imaging Retic elevated, indicative of bleeding, proper bone marrow response Peripheral Smear is normal--no hemolytic signs, MDS or other issues Daily CBC #Post-operative hypotension #Hypertensive urgency -Initial consult for hypertension, patient with tachycardia pre/post op, started on metoprolol 2.5 q6 hours, now NGT removed and on CLD, Continue home metoprolol 12.5mg BID Hold other home medications at this time #Hypophosphatemia #GENE *resolved #hyperkalemia *resolved likely prerenal/ATN 2/2 hypotension, contrast Lasix administered yesterday am 2/2 hyperkalemia and crackles Hold home diuretics, continue IVF and encourage PO Avoid nephrotoxic agents Hold home ACEi/hctz Strict I/Os Continue ruiz Insulin/dextrose, IVF for hyperk Nephrology consulted, managing K with Lokelma -Discontinued Lokelma Continue phos supplementation QID + x1 PO K #Chronic bilateral lower extremity edema On lasix 20mg daily, will hold 2/2 above GENE Patient reports stable/chronic in nature BNP 31 #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 STOP Heparin subcu as per postop orders Thank you for this consultation. We will follow the patient with you during their hospital stay. You can reach a member of the [facility] Hospitalist Team 14/12 via [employer] Admission and Anticipated Discharge Date Admission Date: September 01, 2023 Subjective NAEO Pleasant and eager for diet advancement as soon as possible Denies any new concerns Physical Exam Constitutional: WD/WN, vitals as above Respiratory: normal respiratory effort, lungs clear to auscultation Cardiovascular: RRR, no murmur, no edema Gastrointestinal (Abdomen): normal bowel sounds, soft, nontender, no hepatosplenomegaly Results & Data Results & Data Vital Signs (Past 12 Hours) Vital Signs Temp Pulse Pulse Resp BP Pulse Ox O2 Del Method 09/06/23 07:40 Room Air 09/06/23 07:35 36.6 C 85 18 145/64 H 93 Room Air 09/06/23 06:08 88 09/06/23 04:32 36.8 C 91 H 20 134/71 93 CPAP 09/06/23 02:40 17 09/05/23 23:54 37.3 C 93 H 20 142/71 H 96 CPAP O2 Flow Rate 09/06/23 07:40 09/06/23 07:35 09/06/23 06:08 09/06/23 04:32 2 09/06/23 02:40 2 09/05/23 23:54 2
[2023-09-06] MEDS: POTASSIUM PHOSPHATE 24 MMOL in SODIUM CHLORIDE 0.9% 500 ML IV ONE (11:49)
--- NOTE | 2023-09-06 12:51 | Surgery Progress Note ---
Date of Service September 06, 2023 Assessment & Plan (1) Volvulus of intestine: Plan: Patient is status post right hemicolectomy on 09/01/2023 (postop day #5) Provide analgesics as needed Provide antiemetics as needed Discussed with nursing staff about further mobilizing the patient in order to assess for any symptomatology in the setting of low hemoglobin and hematocrit Continue current diet As previously noted the patient has profound postoperative anemia: CT angiogram of the abdomen on 09/03/2023 showed postoperative changes with no active extravasation of blood Serial hemoglobin and hematocrits have been followed; most recent hemoglobin was 5.4 As previously noted, the 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 labs - advance diet as tolerated Admission and Anticipated Discharge Date Admission Date: September 01, 2023 Subjective doing well. tolerating diet; no n/v. no shortness of breath. H/H slightly increased today, 5.4/16.4 Physical Exam Physical Exam: NAD A&Ox3 AFVSS Abd soft, NTND incision C/D/I merari and packing in place Results & Data Vital Signs (Past 12 Hours) Vital Signs Temp Pulse Pulse Resp BP Pulse Ox O2 Del Method 09/06/23 11:36 36.7 C 96 H 18 126/73 95 Room Air 09/06/23 07:40 Room Air 09/06/23 07:35 36.6 C 85 18 145/64 H 93 Room Air 09/06/23 06:08 88 09/06/23 04:32 36.8 C 91 H 20 134/71 93 CPAP 09/06/23 02:40 17 O2 Flow Rate 09/06/23 11:36 09/06/23 07:40 09/06/23 07:35 09/06/23 06:08 09/06/23 04:32 2 09/06/23 02:40 2
[2023-09-07 08:29] LABS: Hematocrit (blood only) 16.9 % (42.0-52.0); Hemoglobin 5.6 g/dl (14.0-18.0); Mean Corpuscular Hemoglobin 29.2 pg (25.0-34.0); Mean Corpuscular Hgb Conc 33.1 g/dL (32.0-36.0); Mean Platelet Volume 9.4 fL (9.4-12.4); Nucleated RBC # (auto) 0.17 K/uL (0.00-0.12); Nucleated RBC % (auto) 1.8 %; Platelet Count 205 K/uL (130-400); RDW Coefficient of Variation 14.6 % (11.5-14.5); RDW Standard Deviation 41.7 fL (36.4-46.3); Red Blood Count 1.92 M/uL (4.70-6.10); White Blood Count 9.54 K/ul (4.8-10.8)
[2023-09-07 08:40] LABS: BUN Creatinine Ratio 10.5 (10-20); Calcium 7.8 mg/dl (8.6-10.3); Creatinine Clr Calc Pharmacy 120.8 ml/min; Est GFR (African American) 112.4 ml/min; Magnesium 1.9 mg/dl (1.7-2.4); Phosphorus 2.2 mg/dl (2.5-4.9); Potassium 3.5 mmol/L (3.5-5.1)
[2023-09-07] MEDS: FERROUS SULFATE 325 MG/7.4 ML UDP PO SCH (08:58)
--- NOTE | 2023-09-07 10:18 | Hospitalist Progress Note ---
Date of Service September 07, 2023 Assessment & Plan (1) Volvulus of intestine: Plan: Mr. Aceves is an 78 year old gentleman with past medical history notable for HFpEF, HTN, HLD, BPH, prior tobacco use, GERD, who is admitted due to cecal volvulus. Patient is now s/p exlap 08/31 with right colon resection. Postoperative course complicated by GENE and post-operative anemia Patient otherwise reports feeling subjectively well and tolerating PO CLD. Patient with precipitous drop in HGB but no localizing factors--soft abdomen, negative CTA. Work up not suggestive of hemolysis. Reticulocyte count elevated, suggestive of proper bone marrow response. Patient declines transfusion--optimizing with iron/b12/folate at this time. Transitioning to PO medications at this time. Discussed with [facility] about EPO--working prescription for EPO will arrive at facility in 48-72 hours. Confirmed patient will be on bed rest as low hgb at this level confers risk of adverse cardiac events #Acute anemia, dilutional and post-op losses? -Hemoglobin prior to procedure 14, now postop day 1 7; hgb from 2019 ~10, suspect likely combination of dehydration for elevated value on admission. Patient now s/p IVF and procedure, suspect dilutional and post-op losses given current hemodynamic stability and clinical improvement. Given age, will obtain anemia labs for any optimization -Anemia labs with iron 13, transferrin 7%,ferritin 126.8, bili normal, ldh normal, lfts normal, BUN 36 Declines transfusion 2/2 pentecostalism affiliation Hematology consulted for additional optimization given continued low hgb -Discontinue IV Iron, s/p 4 days -Continue B12, folate PO -Transition to PO iron -Continue vitamin C -Started EPO given improvement in Ferritin at 387 09/04 -Continue 40,000U EPO SQ until 09/18 with plans for follow up, prescription written for [facility] to obtain, follow up when facility has medication -Plan for bed rest until Hgb > 7-8 given high risk for cardiac events -Defer to primary for repeat imaging Retic elevated, indicative of bleeding, proper bone marrow response Peripheral Smear is normal--no hemolytic signs, MDS or other issues Daily CBC #Post-operative hypotension *resolved #Hypertensive urgency -Initial consult for hypertension, patient with tachycardia pre/post op, started on metoprolol 2.5 q6 hours, now NGT removed and on CLD, Continue home metoprolol 12.5mg BID Hold other home medications at this time Resuming amlodipine 10mg Will add lisiniopril-hctz as tolerated #Hypophosphatemia #GENE *resolved #hyperkalemia *resolved likely prerenal/ATN 2/2 hypotension, contrast Lasix administered yesterday am 2/2 hyperkalemia and crackles Hold home diuretics, continue IVF and encourage PO Avoid nephrotoxic agents Hold home ACEi/hctz Strict I/Os Continue ruiz Insulin/dextrose, IVF for hyperk Nephrology consulted, managing K with Lokelma -Discontinued Lokelma Continue phos supplementation QID #Chronic bilateral lower extremity edema On lasix 20mg daily, will hold 2/2 above GENE Patient reports stable/chronic in nature BNP 31 #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 STOP Heparin subcu as per postop orders Thank you for this consultation. We will follow the patient with you during their hospital stay. You can reach a member of the [facility] Hospitalist Team 14/12 via [facility] Admission and Anticipated Discharge Date Admission Date: September 01, 2023 Subjective NAEO, reports feeling well over all Denies any abdominal pain Physical Exam Constitutional: WD/WN, vitals as above Respiratory: normal respiratory effort, lungs clear to auscultation Cardiovascular: rrr Gastrointestinal (Abdomen): normal bowel sounds, soft, nontender, no hepatosplenomegaly Musculoskeletal: stable baseline edema on BLE Results & Data Results & Data Vital Signs (Past 12 Hours) Vital Signs Temp Pulse Pulse Resp BP Pulse Ox O2 Del Method 09/07/23 08:10 36.9 C 93 H 18 147/76 H 93 Room Air 09/07/23 05:23 36.7 C 93 H 20 126/76 98 CPAP 09/07/23 02:45 87 21 94 09/06/23 23:48 36.9 C 85 20 154/87 H 95 CPAP 09/06/23 23:29 85 09/06/23 22:25 80 20 94 O2 Flow Rate 09/07/23 08:10 09/07/23 05:23 2 09/07/23 02:45 2 09/06/23 23:48 2 09/06/23 23:29 09/06/23 22:25 2 Laboratory Results Short CBC 09/07/23 Range/Units 07:18 WBC 9.54 (4.8-10.8) K/ul Hgb 5.6 L* (14.0-18.0) g/dl Hct 16.9 L* (42.0-52.0) % Plt Count 205 (130-400) K/uL BMP 09/07/23 07:18 Sodium 133 L Potassium 3.5 Chloride 101 Carbon Dioxide 27 BUN 6 Creatinine 0.57 L Glucose 116 H Calcium 7.8 L Medications Administered Home Medications Medication Instructions Recorded Confirmed Last Taken amlodipine 10 mg tablet 10 mg PO DAILY 01/01/19 09/01/23 Unknown atorvastatin 10 mg tablet 10 mg PO HS 01/01/19 09/01/23 Unknown lisinopril 20 1 tab PO DAILY 01/01/19 09/01/23 Unknown mg-hydrochlorothiazide 25 mg tablet metoprolol tartrate 25 mg tablet 12.5 mg PO BID 01/01/19 09/01/23 Unknown naproxen 500 mg tablet,delayed 500 mg PO DAILY Pain 01/01/19 09/01/23 Unknown release omeprazole 20 mg capsule,delayed 20 mg PO DAILY 01/01/19 09/01/23 Unknown release tamsulosin 0.4 mg capsule 0.4 mg PO DAILY 01/01/19 09/01/23 Unknown Bacmin 1 PO DAILY 09/01/23 Unknown Lasix 20 mg PO DAILY 09/01/23 09/01/23 Unknown Active Medications Generic Name Dose Route Start Last Admin Trade Name Freq PRN Reason Stop Dose Admin Acetaminophen 650 mg 09/05/23 02:48 09/05/23 03:00 Acetaminophen 325 Mg Tab PO 10/05/23 02:47 650 mg Q6H PRN Administration Pain or Fever Ascorbic Acid 500 mg 09/05/23 14:00 09/07/23 08:56 Ascorbic Acid 500 Mg Tab PO 10/05/23 13:59 500 mg TID ZULEIMA Administration Atorvastatin Calcium 10 mg 09/02/23 21:00 09/06/23 20:03 Atorvastatin 10 Mg Tab PO 10/02/23 20:59 10 mg HS ZULEIMA Administration Cyanocobalamin 1,000 mcg 09/03/23 09:00 09/07/23 08:56 Cyanocobalamin 1000 Mcg/Ml Vial IM 09/09/23 09:01 1,000 mcg QAM ZULEIMA Administration Epoetin Noble 40,000 units 09/05/23 09:30 09/07/23 10:06 Epoetin Noble 40,000 Units/Ml Vial SQ 10/05/23 09:29 40,000 units DAILY ZULEIMA Administration Ergocalciferol 1,250 mcg 09/03/23 17:15 09/03/23 18:23 Ergocalciferol 1250 Mcg (50,000 Units) Cap PO 10/03/23 17:14 1,250 mcg Q7D ZULEIMA Administration Ferrous Sulfate 325 mg 09/07/23 09:00 09/07/23 08:58 Ferrous Sulfate 325 Mg/7.4 Ml Udp PO 10/07/23 08:59 325 mg QAM ZULEIMA Administration Furosemide 20 mg 09/06/23 09:00 09/07/23 08:57 Furosemide 20 Mg Tab PO 10/06/23 08:59 20 mg DAILY ZULEIMA Administration Folic Acid 1 mg/ Syringe 10 mls @ 5 mls/min 09/03/23 09:00 09/07/23 08:56 IV 10/03/23 08:59 5 mls/min QAM ZULEIMA Administration Pantoprazole Sodium 40 mg/ 100 mls @ 20 mls/hr 09/03/23 11:30 09/07/23 10:05 Dextrose IV 10/03/23 11:29 8 mg/hr Q5H ZULEIMA 20 mls/hr Administration 8 MG/HR Metoprolol Tartrate 12.5 mg 09/02/23 21:00 09/07/23 08:57 Metoprolol Tartrate 25 Mg Tab PO 10/02/23 20:59 12.5 mg BID ZULEIMA Administration Pantoprazole Sodium 40 mg 09/03/23 09:00 09/03/23 08:44 Pantoprazole 40 Mg Tab PO 10/03/23 08:59 40 mg DAILY ZULEIMA Administration Potassium Phosphate 2 tab 09/05/23 13:00 09/07/23 08:57 Pot Phosphate Monobasic W/ Sod Tab PO 10/05/23 12:59 2 tab QID ZULEIMA Administration Tamsulosin HCl 0.4 mg 09/03/23 09:00 09/07/23 08:57 Tamsulosin Hcl 0.4 Mg Cap PO 10/03/23 08:59 0.4 mg DAILY ZULEIMA Administration
--- NOTE | 2023-09-07 12:07 | Surgery Progress Note ---
Date of Service September 07, 2023 Assessment & Plan (1) Volvulus of intestine: Plan: Patient is status post right hemicolectomy on 09/01/2023 (postop day #6) Provide analgesics as needed Provide antiemetics as needed Discussed with nursing staff about further mobilizing the patient in order to assess for any symptomatology in the setting of low hemoglobin and hematocrit Continue current diet As previously noted the patient has profound postoperative anemia: CT angiogram of the abdomen on 09/03/2023 showed postoperative changes with no active extravasation of blood Serial hemoglobin and hematocrits have been followed; most recent hemoglobin was 5.4 As previously noted, the patient is a Congregational he does not accept blood transfusions Continue treatment with non-transfusion modalities including iron, vitamin B12, and folic acid, epo as per hematology Check a.m. labs - advance diet as tolerated Admission and Anticipated Discharge Date Admission Date: September 01, 2023 Subjective doing well; no complaints Physical Exam Physical Exam: NAD A&Ox3 AFVSS Abd soft, NTND incision C/D/I merari and packing in place Results & Data Vital Signs (Past 12 Hours) Vital Signs Temp Pulse Pulse Resp BP Pulse Ox O2 Del Method 09/07/23 11:28 36.5 C 93 H 18 187/85 H 93 Room Air 09/07/23 10:23 87 09/07/23 08:10 36.9 C 93 H 18 147/76 H 93 Room Air 09/07/23 05:23 36.7 C 93 H 20 126/76 98 CPAP 09/07/23 02:45 87 21 94 O2 Flow Rate 09/07/23 11:28 09/07/23 10:23 09/07/23 08:10 09/07/23 05:23 2 09/07/23 02:45 2 Laboratory Results 09/07/23 Range/Units 07:18 WBC 9.54 (4.8-10.8) K/ul RBC 1.92 L (4.70-6.10) M/uL Hgb 5.6 L* (14.0-18.0) g/dl Hct 16.9 L* (42.0-52.0) % MCV 88.0 (80.0-100.0) fL MCH 29.2 (25.0-34.0) pg MCHC 33.1 (32.0-36.0) g/dL RDW Std Deviation 41.7 (36.4-46.3) fL RDW Coeff of Shanelle 14.6 H (11.5-14.5) % Plt Count 205 (130-400) K/uL MPV 9.4 (9.4-12.4) fL Absolute Nucleated RBC 0.17 H (0.00-0.12) K/uL Nucleated RBC % (auto) 1.8 % Sodium 133 L (136-145) mmol/L Potassium 3.5 (3.5-5.1) mmol/L Chloride 101 (98-107) mmol/L Carbon Dioxide 27 (21-32) mmol/L Anion Gap 5 (3-11) BUN 6 (6-23) mg/dl Creatinine 0.57 L (0.6-1.4) mg/dl Est Cr Clr Drug Dosing 120.8 ml/min Est GFR ( Amer) 112.4 ml/min Est GFR (Non-Af Amer) 97.0 ml/min BUN/Creatinine Ratio 10.5 (10-20) Glucose 116 H (70-99(Fasting)) mg/dl Calcium 7.8 L (8.6-10.3) mg/dl Phosphorus 2.2 L (2.5-4.9) mg/dl Magnesium 1.9 (1.7-2.4) mg/dl
[2023-09-07] MEDS: amLODIPine BESYLATE 5 MG TAB PO ONE (12:37)
--- NOTE | 2023-09-07 12:49 | Progress Note ---
Date of Service September 07, 2023 Assessment & Plan (1) Severe anemia: (2) Volvulus: Plan -Continue with iron, B12, folate, vitamin C daily supplementation. Continue with daily erythropoietin until hemoglobin is greater than 7 and then switch to 40,000 units weekly till above 10g/dl -Follow-up with hematology upon discharge. Admission and Anticipated Discharge Date Admission Date: September 01, 2023 Subjective Continued gradual improvement in hemoglobin/hematocrit from 4.9/15.1 on 09/05/2023 to 5.6/16.9. Results & Data Vital Signs (Past 12 Hours) Vital Signs Temp Pulse Pulse Resp BP Pulse Ox O2 Del Method 09/07/23 11:28 36.5 C 93 H 18 187/85 H 93 Room Air 09/07/23 10:23 87 09/07/23 08:10 36.9 C 93 H 18 147/76 H 93 Room Air 09/07/23 05:23 36.7 C 93 H 20 126/76 98 CPAP 09/07/23 02:45 87 21 94 O2 Flow Rate 09/07/23 11:28 09/07/23 10:23 09/07/23 08:10 09/07/23 05:23 2 09/07/23 02:45 2
[2023-09-08 08:16] LABS: Hematocrit (blood only) 17.2 % (42.0-52.0); Hemoglobin 5.5 g/dl (14.0-18.0); Mean Corpuscular Hemoglobin 29.3 pg (25.0-34.0); Mean Corpuscular Volume 91.5 fL (80.0-100.0); Mean Platelet Volume 9.6 fL (9.4-12.4); Platelet Count 215 K/uL (130-400); RDW Coefficient of Variation 15.9 % (11.5-14.5); RDW Standard Deviation 43.7 fL (36.4-46.3); Red Blood Count 1.88 M/uL (4.70-6.10); White Blood Count 10.15 K/ul (4.8-10.8)
[2023-09-08 08:20] LABS: BUN Creatinine Ratio 15.3 (10-20); Calcium 7.8 mg/dl (8.6-10.3); Est GFR (African American) 110.8 ml/min; Est GFR (Non-African American) 95.6 ml/min; Magnesium 1.8 mg/dl (1.7-2.4); Phosphorus 2.1 mg/dl (2.5-4.9); Potassium 4.1 mmol/L (3.5-5.1)
[2023-09-08] MEDS: amLODIPine BESYLATE 5 MG TAB PO SCH (08:51)
[2023-09-08] MEDS ORDERED: POTASSIUM PHOS 3 MMOL/1 ML INFUSION IV STA (08:51)
[2023-09-08] MEDS: FOLIC ACID 1 MG TAB PO SCH (08:52)
--- NOTE | 2023-09-08 09:26 | Surgery Progress Note ---
Date of Service September 08, 2023 Assessment & Plan (1) Volvulus of intestine: Plan: Patient is status post right hemicolectomy on 09/01/2023 (postop day #7) Provide analgesics as needed Provide antiemetics as needed Discussed with nursing staff about further mobilizing the patient in order to assess for any symptomatology in the setting of low hemoglobin and hematocrit Continue current diet As previously noted the patient has profound postoperative anemia: CT angiogram of the abdomen on 09/03/2023 showed postoperative changes with no active extravasation of blood Serial hemoglobin and hematocrits have been followed; most recent hemoglobin was 5.4 As previously noted, the patient is a Orthodox he does not accept blood transfusions Continue treatment with non-transfusion modalities including iron, vitamin B12, and folic acid, epo as per hematology Check a.m. labs - advance diet as tolerated - merari to be removed on day 10 if still in hospital Admission and Anticipated Discharge Date Admission Date: September 01, 2023 Subjective doing well; no complaints Physical Exam Physical Exam: NAD A&Ox3 AFVSS Abd soft, NTND incision C/D/I merari and packing in place Results & Data Vital Signs (Past 12 Hours) Vital Signs Temp Pulse Pulse Resp BP Pulse Ox O2 Del Method 09/08/23 07:42 36.9 C 94 H 16 115/71 94 Room Air 09/08/23 02:23 26 H 95 09/07/23 23:33 36.8 C 105 H 20 123/72 99 CPAP 09/07/23 22:18 93 H 25 H 96 09/07/23 22:13 101 H O2 Flow Rate 09/08/23 07:42 09/08/23 02:23 2 09/07/23 23:33 2 09/07/23 22:18 2 09/07/23 22:13
[2023-09-08] MEDS: POTASSIUM PHOSPHATE 15 MMOL in SODIUM CHLORIDE 0.9% 250 ML IV ONE (10:28)
--- NOTE | 2023-09-08 11:06 | Hospitalist Progress Note ---
Date of Service September 08, 2023 Assessment & Plan (1) Volvulus of intestine: Plan: Mr. Aceves is an 78 year old gentleman with past medical history notable for HFpEF, HTN, HLD, BPH, prior tobacco use, GERD, who is admitted due to cecal volvulus. Patient is now s/p exlap 08/31 with right colon resection. Per previous provider with addendum: Postoperative course complicated by GENE and post-operative anemia Patient otherwise reports feeling subjectively well and tolerating PO CLD. Patient with precipitous drop in HGB but no localizing factors--soft abdomen, negative CTA. Work up not suggestive of hemolysis. Reticulocyte count elevated, suggestive of proper bone marrow response. Patient declines transfusion--optimizing with iron/b12/folate at this time. Transitioning to PO medications at this time. Discussed with [facility] about EPO--working prescription for EPO will arrive at facility in 48-72 hours. Confirmed patient will be on bed rest as low hgb at this level confers risk of adverse cardiac events 09/07- pt stable for return to facility, awaiting arrival of EPO medication Acute anemia, dilutional and post-op losses? -Hemoglobin prior to procedure 14, now postop day 1 7; hgb from 2019 ~10, suspect likely combination of dehydration for elevated value on admission. Patient now s/p IVF and procedure, suspect dilutional and post-op losses given current hemodynamic stability and clinical improvement. Given age, will obtain anemia labs for any optimization -Anemia labs with iron 13, transferrin 7%,ferritin 126.8, bili normal, ldh normal, lfts normal, BUN 36 Declines transfusion 2/2 yazdanism affiliation Hematology consulted for additional optimization given continued low hgb -Discontinue IV Iron, s/p 4 days -Continue B12, folate PO -Transition to PO iron -Continue vitamin C -Started EPO given improvement in Ferritin at 387 09/04 -Continue 40,000U EPO SQ until 09/18 with plans for follow up, prescription written for [facility] to obtain, follow up when facility has medication -Plan for bed rest until Hgb > 7-8 given high risk for cardiac events -Defer to primary for repeat imaging Retic elevated, indicative of bleeding, proper bone marrow response Peripheral Smear is normal--no hemolytic signs, MDS or other issues Daily CBC 09/07- pt stable for return to facility, awaiting arrival of EPO medication there Post-operative hypotension *resolved Hypertensive urgency Initial consult for hypertension, patient with tachycardia pre/post op, started on metoprolol 2.5 q6 hours, now NGT removed and on CLD, Continue home metoprolol 12.5mg BID Hold other home medications at this time Resumed amlodipine 10mg Will add lisiniopril-hctz as tolerated Hypophosphatemia GENE *resolved hyperkalemia *resolved likely prerenal/ATN 2/2 hypotension, contrast Lasix administered yesterday am 2/2 hyperkalemia and crackles Hold home diuretics, continue IVF and encourage PO Avoid nephrotoxic agents Hold home ACEi/hctz Strict I/Os Continue ruiz Insulin/dextrose, IVF for hyperk Nephrology consulted, managing K with Lokelma -Discontinued Lokelma Continue phos supplementation QID Chronic bilateral lower extremity edema On lasix 20mg daily, will hold 2/2 above GENE Patient reports stable/chronic in nature BNP 31 Cecal volvulus status post surgery 08/31 Was on zosyn per primary NGT removed, diet advanced Bowel regimen per primary hyperlipidemia, on statin Rx BPH, on Flomax GERD, on PPI History of chronic hyponatremia -BMP with sodium normal, at this time, pseudohyponatremia iso hyperglycemia right tonsillar CA status post surgery/radiation Continue to monitor, no acute issues Hyperglycemia rule out DM -A1C 5.6%, continue to monitor DVT prophylaxis. STOP Heparin subcu as per postop orders in setting of anemia. Thank you for this consultation. We will follow the patient with you during their hospital stay. You can reach a member of the [facility] Hospitalist Team 14/12 via [employer] Admission and Anticipated Discharge Date Admission Date: September 01, 2023 Subjective Pt was seen in the AM. 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 Pt denies SOB, dizziness, chest pain or abdominal pain. Review of Systems Review of Systems: All systems reviewed & are unremarkable except as noted in Subjective Physical Exam Physical Exam: General: Alert, oriented. No acute distress Skin: abdominal bandage in place Psych: Appropriate mood and affect Neuro: No gross deficits HEENT: NC/AT CV: irregular rate Resp: Breath sounds coarse bilaterally, no increased effort of breathing. Abdomen:Soft, nontender Extremities: edema in lower extremities bilaterally. Results & Data Results & Data Vital Signs (Past 12 Hours) Vital Signs Temp Pulse Resp BP Pulse Ox O2 Del Method O2 Flow Rate 09/08/23 11:01 36.8 C 96 H 16 108/64 94 Room Air 09/08/23 07:42 36.9 C 94 H 16 115/71 94 Room Air 09/08/23 02:23 26 H 95 2 09/07/23 23:33 36.8 C 105 H 20 123/72 99 CPAP 2
[2023-09-09 04:46] LABS: Albumin Globulin Ratio 1.3 (0.9-2); Albumin Level 2.8 gm/dl (3.4-5.0); BUN Creatinine Ratio 16.4 (10-20); Bilirubin,Total 0.5 mg/dl (0.2-1.0); Calcium 7.8 mg/dl (8.6-10.3); Creatinine Clr Calc Pharmacy 102.2 ml/min; Est GFR (African American) 105.2 ml/min; Est GFR (Non-African American) 90.8 ml/min; Globulin 2.1 gm/dl (2.5-4.0); Magnesium 1.7 mg/dl (1.7-2.4); Phosphorus 2.8 mg/dl (2.5-4.9); Potassium 4.1 mmol/L (3.5-5.1); Total Protein 4.9 gm/dl (6.0-8.3)
[2023-09-09 06:14] LABS: Hematocrit (blood only) 16.9 % (42.0-52.0); Hemoglobin 5.4 g/dl (14.0-18.0); Mean Corpuscular Volume 90.9 fL (80.0-100.0); Mean Platelet Volume 9.5 fL (9.4-12.4); Nucleated RBC # (auto) 0.32 K/uL (0.00-0.12); Nucleated RBC % (auto) 3.8 %; Platelet Count 233 K/uL (130-400); RDW Coefficient of Variation 17.1 % (11.5-14.5); RDW Standard Deviation 46.1 fL (36.4-46.3); Red Blood Count 1.86 M/uL (4.70-6.10)
--- NOTE | 2023-09-09 12:41 | Hospitalist Progress Note ---
Date of Service September 09, 2023 Assessment & Plan (1) Volvulus of intestine: Plan: Mr. Aceves is an 78 year old gentleman with past medical history notable for HFpEF, HTN, HLD, BPH, prior tobacco use, GERD, who is admitted due to cecal volvulus. Patient is now s/p exlap 08/31 with right colon resection. Per previous provider with addendum: Postoperative course complicated by GENE and post-operative anemia Patient otherwise reports feeling subjectively well and tolerating PO CLD. Patient with precipitous drop in HGB but no localizing factors--soft abdomen, negative CTA. Work up not suggestive of hemolysis. Reticulocyte count elevated, suggestive of proper bone marrow response. Patient declines transfusion--optimizing with iron/b12/folate at this time. Transitioning to PO medications at this time. Discussed with [facility] about EPO--working prescription for EPO will arrive at facility in 48-72 hours. Confirmed patient will be on bed rest as low hgb at this level confers risk of adverse cardiac events 09/07- pt stable for return to facility, awaiting arrival of EPO medication 09/08- called [facility], Epo has not yet arrived. State their shipments come in at 8pm, [facility] Will call in AM to confirm. Primary General surgery team updated. Acute anemia, dilutional and post-op losses? -Hemoglobin prior to procedure 14, now postop day 1 7; hgb from 2019 ~10, suspect likely combination of dehydration for elevated value on admission. Patient now s/p IVF and procedure, suspect dilutional and post-op losses given current hemodynamic stability and clinical improvement. Given age, will obtain anemia labs for any optimization -Anemia labs with iron 13, transferrin 7%,ferritin 126.8, bili normal, ldh normal, lfts normal, BUN 36 Declines transfusion 2/2 anglican affiliation Hematology consulted for additional optimization given continued low hgb -Discontinue IV Iron, s/p 4 days -Continue B12, folate PO -Transition to PO iron -Continue vitamin C -Started EPO given improvement in Ferritin at 387 09/04 -Continue 40,000U EPO SQ until 09/18 with plans for follow up, prescription written for [facility] to obtain, follow up when facility has medication -Plan for bed rest until Hgb > 7-8 given high risk for cardiac events -Defer to primary for repeat imaging Retic elevated, indicative of bleeding, proper bone marrow response Peripheral Smear is normal--no hemolytic signs, MDS or other issues Daily CBC 09/07- pt stable for return to facility, awaiting arrival of EPO medication th ere 09/08- pt remains stable clinically, hgb stable in 5 range. [facility], Epo has not yet arrived. State their shipments come in at 8pm, possibly in tonight. Will call in AM to confirm. Primary General surgery team updated. Post-operative hypotension *resolved Hypertensive urgency Initial consult for hypertension, patient with tachycardia pre/post op, started on metoprolol 2.5 q6 hours, now NGT removed and on CLD, Continue home metoprolol 12.5mg BID Hold other home medications at this time Resumed amlodipine 10mg Will add lisiniopril-hctz as tolerated Hypophosphatemia GENE *resolved hyperkalemia *resolved likely prerenal/ATN 2/2 hypotension, contrast Lasix administered yesterday am 2/2 hyperkalemia and crackles Hold home diuretics, continue IVF and encourage PO Avoid nephrotoxic agents Hold home ACEi/hctz Strict I/Os Continue ruiz Insulin/dextrose, IVF for hyperk Nephrology consulted, managing K with Lokelma -Discontinued Lokelma Continue phos supplementation QID Chronic bilateral lower extremity edema On lasix 20mg daily, will hold 2/2 above GENE Patient reports stable/chronic in nature BNP 31 Cecal volvulus status post surgery 08/31 Was on zosyn per primary NGT removed, diet advanced Bowel regimen per primary hyperlipidemia, on statin Rx BPH, on Flomax GERD, on PPI History of chronic hyponatremia -BMP with sodium normal, at this time, pseudohyponatremia iso hyperglycemia right tonsillar CA status post surgery/radiation Continue to monitor, no acute issues Hyperglycemia rule out DM -A1C 5.6%, continue to monitor DVT prophylaxis. STOP Heparin subcu as per postop orders in setting of anemia. Thank you for this consultation. We will follow the patient with you during their hospital stay. You can reach a member of the [facility] Hospitalist Team 14/12 via [employer] [place] Admission and Anticipated Discharge Date Admission Date: September 01, 2023 Subjective pt stable. Denies any symptoms- no SOB, dizziness, abdominal pain Review of Systems Review of Systems: All systems reviewed & are unremarkable except as noted in Subjective Physical Exam Physical Exam: General: Alert, oriented. No acute distress Skin: abdominal bandage in place Psych: Appropriate mood and affect Neuro: No gross deficits HEENT: NC/AT CV: irregular rate Resp: Breath sounds coarse bilaterally, no increased effort of breathing. Abdomen:Soft, nontender Extremities: edema in lower extremities bilaterally. Results & Data Results & Data Vital Signs (Past 12 Hours) Vital Signs Temp Pulse Pulse Resp BP BP Pulse Ox 09/09/23 10:45 36.7 C 89 18 126/68 95 09/09/23 07:37 37.2 C 62 20 126/69 100 09/09/23 07:04 88 09/09/23 03:57 36.9 C 95 H 16 113/65 97 09/09/23 02:24 92 H 17 96 O2 Del Method O2 Flow Rate 09/09/23 10:45 Room Air 09/09/23 07:37 Room Air 09/09/23 07:04 09/09/23 03:57 Room Air, BiPAP 09/09/23 02:24 2
--- NOTE | 2023-09-09 14:15 | Surgery Progress Note ---
Date of Service September 09, 2023 Assessment & Plan (1) Volvulus of intestine: Plan: Patient is status post right hemicolectomy on 09/01/2023 (postop day #8) Provide analgesics as needed Provide antiemetics as needed Discussed with nursing staff about further mobilizing the patient in order to assess for any symptomatology in the setting of low hemoglobin and hematocrit Continue current diet As previously noted the patient has profound postoperative anemia: CT angiogram of the abdomen on 09/03/2023 showed postoperative changes with no active extravasation of blood Serial hemoglobin and hematocrits have been followed; most recent hemoglobin was 5.4 As previously noted, the patient is a Islam he does not accept blood transfusions Continue treatment with non-transfusion modalities including iron, vitamin B12, and folic acid, epo as per hematology - merari to be removed on day 10 if still in hospital - Okay to be discharged from surgical standpoint Admission and Anticipated Discharge Date Admission Date: September 01, 2023 Subjective Continues to do well. Physical Exam Physical Exam: NAD A&Ox3 AFVSS Abd soft, NTND incision C/D/I merari and packing in place Results & Data Vital Signs (Past 12 Hours) Vital Signs Temp Pulse Pulse Resp BP BP Pulse Ox 09/09/23 10:45 36.7 C 89 18 126/68 95 09/09/23 07:37 37.2 C 62 20 126/69 100 09/09/23 07:04 88 09/09/23 03:57 36.9 C 95 H 16 113/65 97 09/09/23 02:24 92 H 17 96 O2 Del Method O2 Flow Rate 09/09/23 10:45 Room Air 09/09/23 07:37 Room Air 09/09/23 07:04 09/09/23 03:57 Room Air, BiPAP 09/09/23 02:24 2 Laboratory Results 09/09/23 09/09/23 Range/Units 13:14 03:48 WBC 8.50 (4.8-10.8) K/ul RBC 1.86 L (4.70-6.10) M/uL Hgb 5.4 L* (14.0-18.0) g/dl Hct 16.9 L* (42.0-52.0) % MCV 90.9 (80.0-100.0) fL MCH 29.0 (25.0-34.0) pg MCHC 32.0 (32.0-36.0) g/dL RDW Std Deviation 46.1 (36.4-46.3) fL RDW Coeff of Shanelle 17.1 H (11.5-14.5) % Plt Count 233 (130-400) K/uL MPV 9.5 (9.4-12.4) fL Absolute Nucleated RBC 0.32 H (0.00-0.12) K/uL Nucleated RBC % (auto) 3.8 % Sodium 133 L (136-145) mmol/L Potassium 4.1 (3.5-5.1) mmol/L Chloride 100 (98-107) mmol/L Carbon Dioxide 27 (21-32) mmol/L Anion Gap 6 (3-11) BUN 11 (6-23) mg/dl Creatinine 0.67 (0.6-1.4) mg/dl Est Cr Clr Drug Dosing 102.2 ml/min Est GFR ( Amer) 105.2 ml/min Est GFR (Non-Af Amer) 90.8 ml/min BUN/Creatinine Ratio 16.4 (10-20) Glucose 120 H (70-99(Fasting)) mg/dl Calcium 7.8 L (8.6-10.3) mg/dl Phosphorus 2.8 (2.5-4.9) mg/dl Magnesium 1.7 (1.7-2.4) mg/dl Iron Cancelled 48 (35-175) mcg/dl TIBC Cancelled 199 L (250-450) mcg/dl Unsaturated IBC Cancelled 151 L (155-355) mcg/dl Transferrin % Sat Cancelled 24 (20-50) % Ferritin Cancelled Pending Total Bilirubin 0.5 (0.2-1.0) mg/dl AST 30 (13-39) U/L ALT 27 (7-52) U/L Alkaline Phosphatase 48 (34-104) U/L Total Protein 4.9 L (6.0-8.3) gm/dl Albumin 2.8 L (3.4-5.0) gm/dl Globulin 2.1 L (2.5-4.0) gm/dl Albumin/Globulin Ratio 1.3 (0.9-2) Vitamin B12 Pending
[2023-09-09 14:19] LABS: Ferritin 636.6 ng/ml (8-388)
[2023-09-10 04:03] LABS: Hematocrit (blood only) 18.9 % (42.0-52.0); Hemoglobin 5.9 g/dl (14.0-18.0); Mean Corpuscular Hemoglobin 29.2 pg (25.0-34.0); Mean Corpuscular Hgb Conc 31.2 g/dL (32.0-36.0); Mean Corpuscular Volume 93.6 fL (80.0-100.0); Mean Platelet Volume 9.3 fL (9.4-12.4); Nucleated RBC % (auto) 2.3 %; Platelet Count 216 K/uL (130-400); RDW Coefficient of Variation 18.3 % (11.5-14.5); RDW Standard Deviation 49.2 fL (36.4-46.3); Red Blood Count 2.02 M/uL (4.70-6.10); White Blood Count 8.87 K/ul (4.8-10.8)
[2023-09-10 04:28] LABS: Albumin Globulin Ratio 1.4 (0.9-2); Albumin Level 2.9 gm/dl (3.4-5.0); BUN Creatinine Ratio 12.5 (10-20); Bilirubin,Total 0.5 mg/dl (0.2-1.0); Calcium 7.6 mg/dl (8.6-10.3); Creatinine Clr Calc Pharmacy 107.2 ml/min; Est GFR (African American) 107.2 ml/min; Est GFR (Non-African American) 92.5 ml/min; Globulin 2.1 gm/dl (2.5-4.0); Magnesium 1.8 mg/dl (1.7-2.4); Phosphorus 2.8 mg/dl (2.5-4.9); Potassium 4.2 mmol/L (3.5-5.1)
--- NOTE | 2023-09-10 09:16 | Hospitalist Progress Note ---
Date of Service September 10, 2023 Assessment & Plan (1) Volvulus of intestine: Plan: Mr. Aceves is an 78 year old gentleman with past medical history notable for HFpEF, HTN, HLD, BPH, prior tobacco use, GERD, who is admitted due to cecal volvulus. Patient is now s/p exlap 08/31 with right colon resection. Per previous provider with addendum: Pt was admitted due to cecal volvulus. Patient is now s/p exlap 08/31 with right colon resection. Postoperative course complicated by GENE and post-operative anemia Patient otherwise reports feeling subjectively well and diet advanced Patient with precipitous drop in HGB but no localizing factors--soft abdomen, negative CTA. Work up not suggestive of hemolysis. Reticulocyte count elevated, suggestive of proper bone marrow response. Patient declined transfusion due to jainism--optimized with iron/b12/folate. Hgb stable in 5 range, pt remained asymptomatic. Was seen by Hematology who recommended: -Continue with iron, B12, folate, vitamin C daily supplementation. -Continue with daily erythropoietin until hemoglobin is greater than 7 and then switch to 40,000 units weekly till above 10g/dl -Follow-up with hematology upon discharge. Recommend bedrest/reduced activity until Hgb >7. Continue with amlodipine 10mg daily and metoprolol 12.5mg BID for HTN. Can resume home lisinopril-hctz as blood pressure allows, held on discharge. Recommend discontinuing chronic NSAID use. Post op recommendations and follow up per primary General Surgery team. Pt discharged on 09/09 by primary general surgery team after notification by case management that senior care had obtained recommended vials of Procrit. Discharge summary per primary team. Pt was treated for the following otherwise: Acute anemia, dilutional and post-op losses -Hemoglobin prior to procedure 14, postop day 1 7; hgb from 2019 ~10, suspect likely combination of dehydration for elevated value on admission. Patient now s/p IVF and procedure, suspect dilutional and post-op losses given current hemodynamic stability and clinical improvement. Given age, will obtain anemia labs for any optimization -Anemia labs with iron 13, transferrin 7%,ferritin 126.8, bili normal, ldh normal, lfts normal, BUN 36 Declined transfusion 2/2 voodoo affiliation Hematology consulted for additional optimization given continued low hgb -Discontinue IV Iron, s/p 4 days -Continue B12, folate PO -Transition to PO iron -Continue vitamin C -Started EPO given improvement in Ferritin at 387 09/04 -Continue 40,000U EPO SQ until 09/18 with plans for follow up, prescription written for [facility] to obtain, follow up when facility has medication -Plan for bed rest until Hgb > 7-8 given high risk for cardiac events -Defer to primary for repeat imaging Retic elevated, indicative of bleeding, proper bone marrow response Peripheral Smear is normal--no hemolytic signs, MDS or other issues Daily CBC Hgb stable in 5 range, pt remained asymptomatic. Was seen by Hematology who recommended: -Continue with iron, B12, folate, vitamin C daily supplementation. -Continue with daily erythropoietin until hemoglobin is greater than 7 and then switch to 40,000 units weekly till above 10g/dl -Follow-up with hematology upon discharge. Recommend bedrest/reduced activity until Hgb >7. Post-operative hypotension *resolved Hypertensive urgency Initial consult for hypertension, patient with tachycardia pre/post op, started on IV metoprolol 2.5mg q6 hours. Once NGT removed and diet advanced was on home metoprolol 12.5mg BID Resumed amlodipine 10mg Home lisiniopril-hctz was held as BP was controlled but can be resumed as needed after discharge. Hypophosphatemia GENE *resolved hyperkalemia *resolved likely prerenal/ATN 2/2 hypotension, contrast Lasix administered 2/2 hyperkalemia and crackles Held home diuretics, continue IVF and encourage PO Avoid nephrotoxic agents Hold home ACEi/hctz Strict I/Os Continue ruiz Insulin/dextrose, IVF for hyperk Nephrology consulted, managing K with Lokelma -Discontinued Lokelma phos supplementation QID while hospitalized Resume lasix on discharge, hyperkalemia resolved. Chronic bilateral lower extremity edema On lasix 20mg daily, will hold 2/2 above GENE Patient reports stable/chronic in nature BNP 31 lasix resumed on discharge Cecal volvulus status post surgery 08/31 Was on zosyn per primary NGT removed, diet advanced Bowel regimen per primary Post op recommendations and follow up per primary General Surgery team. hyperlipidemia, on statin Rx BPH, on Flomax GERD, on PPI History of chronic hyponatremia -BMP with sodium normal, at this time, pseudohyponatremia in setting of hyperglycemia right tonsillar CA status post surgery/radiation Continue to monitor, no acute issues Hyperglycemia rule out DM -A1C 5.6%, continue to monitor DVT prophylaxis. STOP Heparin subcu as per postop orders in setting of anemia. Thank you for this consultation. You can reach a member of the [facility] Hospitalist Team 14/12 via Get[employer] Admission and Anticipated Discharge Date Admission Date: September 01, 2023 Subjective Pt seen with guards present. Denied acute concerns. Review of Systems Review of Systems: All systems reviewed & are unremarkable except as noted in Subjective Physical Exam Physical Exam: General: Alert, oriented. No acute distress Skin: abdominal bandage in place Psych: Appropriate mood and affect Neuro: No gross deficits HEENT: NC/AT CV: irregular rate Resp: Breath sounds coarse bilaterally, no increased effort of breathing. Abdomen:Soft, nontender Extremities: edema in lower extremities bilaterally. Results & Data Results & Data Vital Signs (Past 12 Hours) Vital Signs Temp Pulse Pulse Resp BP BP Pulse Ox 09/10/23 08:01 37.1 C 88 18 122/70 98 09/10/23 07:23 91 H 09/10/23 05:44 117/69 09/10/23 02:56 88 18 172/80 H 100 09/10/23 02:25 79 22 96 09/09/23 23:05 82 20 121/71 98 09/09/23 22:56 87 18 95 09/09/23 21:58 83 O2 Del Method O2 Flow Rate 09/10/23 08:01 Room Air 09/10/23 07:23 09/10/23 05:44 09/10/23 02:56 BiPAP 2 09/10/23 02:25 2 09/09/23 23:05 BiPAP 2 09/09/23 22:56 2 09/09/23 21:58
--- NOTE | 2023-09-10 09:22 | Surgery Progress Note ---
Date of Service September 10, 2023 Assessment & Plan (1) Volvulus of intestine: Plan: Patient is status post right hemicolectomy on 09/01/2023 (postop day #9) Provide analgesics as needed Provide antiemetics as needed Discussed with nursing staff about further mobilizing the patient in order to assess for any symptomatology in the setting of low hemoglobin and hematocrit Continue current diet As previously noted the patient has profound postoperative anemia: CT angiogram of the abdomen on 09/03/2023 showed postoperative changes with no active extravasation of blood Serial hemoglobin and hematocrits have been followed; most recent hemoglobin was 5.4 As previously noted, the patient is a Orthodoxy he does not accept blood transfusions Continue treatment with non-transfusion modalities including iron, vitamin B12, and folic acid, epo as per hematology - merari to be removed before discharge - D/C back to jail today Admission and Anticipated Discharge Date Admission Date: September 01, 2023 Subjective pt stable. Denies any symptoms- no SOB, dizziness, abdominal pain Physical Exam Physical Exam: NAD A&Ox3 AFVSS Abd soft, NTND incision C/D/I merari and packing in place Results & Data Vital Signs (Past 12 Hours) Vital Signs Temp Pulse Pulse Resp BP BP Pulse Ox 09/10/23 08:01 37.1 C 88 18 122/70 98 09/10/23 07:23 91 H 09/10/23 05:44 117/69 09/10/23 02:56 88 18 172/80 H 100 09/10/23 02:25 79 22 96 09/09/23 23:05 82 20 121/71 98 09/09/23 22:56 87 18 95 09/09/23 21:58 83 O2 Del Method O2 Flow Rate 09/10/23 08:01 Room Air 09/10/23 07:23 09/10/23 05:44 09/10/23 02:56 BiPAP 2 09/10/23 02:25 2 09/09/23 23:05 BiPAP 2 09/09/23 22:56 2 09/09/23 21:58
== END 2023-09-10 11:21 | DRG 329 ==
LOC: ED 20:03 → 2S 09-01 01:54 → 2W 09-02 22:25

== ENCOUNTER 2023-11-30 09:06 | Inpatient (IN) ==
--- NOTE | 2023-11-30 09:21 | Emergency Department Note ---
Impression & Plan SBO (small bowel obstruction) ADMIT ED Provider Note HPI: History obtained from patient. The patient is a 78-year-old gentleman with history of small bowel obstruction status post hemicolectomy in August, who presents to the emergency department from [facility] over concern for lower abdominal pain with nausea and vomiting. Patient states his pain began last night and the nausea and vomiting began this morning. On arrival here to the ED the patient states he still does have pain in his lower abdomen, he states he had an episode of green-colored emesis prior to arrival to the ED. Patient denies any chest pain or shortness of breath. ROS: - Per HPI Differential Diagnosis: Small bowel obstruction, viral gastroenteritis, acute colitis, incarcerated hernia, acute cholecystitis, acute appendicitis, volvulus, amongst other potential pathologies. *Outpatient medications and allergy history reviewed. PE: General: Alert HEENT: Normocephalic, trachea midline Eyes: Extraocular eye movement is intact, no scleral erythema Pulmonary: Clear to auscultation bilaterally, no wheezing Cardio: Regular rate and rhythm GI: Abdomen is distended, nontender to palpation : No suprapubic tenderness MSK: No evidence of trauma or malformation of the extremities, no edema Skin: No evidence of rash Neuro: Alert, no focal deficits Psychiatric: Cooperative INDEPENDENT INTERPRETATIONS: library monitor: (As interpreted by myself): - An order was placed for continuous cardiac monitoring - Patient was noted to be in sinus rhythm with a rate of 102 EKG: (As interpreted by myself): Rate: 106 Rhythm: Sinus tachycardia Intervals: Within normal limits ST changes: No ST elevation Time: 0914 Interventions provided in ED: -IV fluid bolus, IV Zofran, IV morphine Medical Decision Making: IV was established and lab work obtained, patient was placed on nuclear monitoring technician. Lab work shows no leukocytosis, hemoglobin is normal, platelet count is normal, CMP does not show any critical findings, lactic acid is mildly elevated at 2.2. Troponin is negative. EKG per my interpretation does not show any evidence of any acute ischemic changes. CT imaging of the abdomen pelvis was obtained and shows evidence of a high-grade small bowel obstruction secondary to an incarcerated right inguinal hernia. Following the results of CT imaging, I did reevaluate the patient and examined the right inguinal area, there was a palpable bulge in this area that when pressure was applied was reducible. Curiously, patient stated that he did not feel that he had much pain in this area. Following reduction of the hernia, I did contact general surgery and case was discussed with the on-call surgery midlevel provider, Rhea Nassar, and the patient was evaluated by the general surgery service at the bedside. Patient was evaluated by Dr. Damon. Following his evaluation the patient will be taken to the operating room this afternoon for surgical repair. On my reassessment the patient remains hemodynamically stable. He is in agreement for admission and operative intervention. Consultants/Discussions held with other healthcare providers: -General Surgery, Dr. Damon Disposition discussion held by myself with: -Patient and senior living staff at the bedside Diagnosis: 1. High-grade small bowel obstruction, acute 2. Incarcerated hernia, right groin, acute 3. Nausea and vomiting, acute 4. Elevated lactic acid level, acute Disposition: Admission Tacos Anderson DO Emergency Medicine Past Med/Surg History Problem List (Updated 11/30/23 @ 14:25 by Tacos Anderson DO) SBO (small bowel obstruction) (Acute) Small bowel obstruction Recurrent right inguinal hernia Severe anemia Volvulus (Acute) Throat cancer High cholesterol High blood pressure Medical History (Updated 11/30/23 @ 14:25 by Tacos Anderson DO) Volvulus of intestine Encounter for pre-operative examination Abdominal pain, acute Social History Smoking Status: Never smoker Hx Alcohol Use: No Hx Substance Use: No Preferred Language: [place] Communication Ability: Effective System Support Analyst Required: No Beliefs That Will Affect Care: None Feels Safe at Home: Yes Allergies Allergies Allergy/AdvReac Type Severity Reaction Status Date / Time No Known Allergies Allergy Verified 01/01/19 11:57 Home Meds Home Medications Medication Instructions Recorded Confirmed amlodipine 10 mg tablet 10 mg PO DAILY 01/01/19 09/01/23 atorvastatin 10 mg tablet 10 mg PO HS 01/01/19 09/01/23 metoprolol tartrate 25 mg tablet 12.5 mg PO BID 01/01/19 09/01/23 omeprazole 20 mg capsule,delayed 20 mg PO DAILY 01/01/19 09/01/23 release tamsulosin 0.4 mg capsule 0.4 mg PO DAILY 01/01/19 09/01/23 Bacmin 1 PO DAILY 09/01/23 Lasix 20 mg PO DAILY 09/01/23 09/01/23 Previous Rx's Medication Instructions Recorded ascorbic acid (vitamin C) 500 mg 500 mg PO TID #90 tabs 09/10/23 tablet (Vitamin C) cyanocobalamin (vitamin B-12) 1,000 mcg PO DAILY #30 tabs 09/10/23 1,000 mcg tablet epoetin alyssa 40,000 unit/mL 40,000 unit subcut DAILY #4 mL 09/10/23 injection solution (Procrit) ergocalciferol (vitamin D2) 1,250 1,250 mcg PO Q7D #10 caps 09/10/23 mcg (50,000 unit) capsule ferrous sulfate 220 mg (44 mg 325 mg (7.3864 mL) PO QAM #473 mL 09/10/23 iron)/5 mL oral elixir folic acid 1 mg tablet 1 mg PO QAM #30 tabs 09/10/23 Results & Data (ED) Vital Signs Vital Signs - 24 hr 11/30/23 09:14 11/30/23 09:14 11/30/23 09:27 Temperature 36.9 C Temperature Source Oral Pulse Rate 109 H 117 H 110 H Pulse Rate [Apical] Pulse Rate from SpO2 Sensor Respiratory Rate 18 19 19 Respiratory Effort / Characteristics Non-Labored Spontaneous Respiratory Depth Normal Blood Pressure 174/106 H Blood Pressure [Right Arm] Blood Pressure Mean 128 Blood Pressure Mean [Right Arm] Blood Pressure Position Lying Blood Pressure Position [Right Arm] Pulse Oximetry 97 97 Oxygen Delivery Method Room Air Room Air Sepsis Recent Fever Within 48 Hours No Sepsis New/Unexplained Change in Mental Status N/A Sepsis Action Taken by Nursing No Action Required 11/30/23 09:33 11/30/23 09:39 11/30/23 09:39 Temperature Temperature Source Pulse Rate 103 H 103 H Pulse Rate [Apical] 102 H Pulse Rate from SpO2 Sensor 103 H Respiratory Rate 18 18 21 Respiratory Effort / Characteristics Non-Labored Spontaneous Respiratory Depth Normal Blood Pressure Blood Pressure [Right Arm] 174/106 H Blood Pressure Mean Blood Pressure Mean [Right Arm] 128 Blood Pressure Position Blood Pressure Position [Right Arm] Lying Pulse Oximetry 96 96 96 Oxygen Delivery Method Room Air Room Air Sepsis Recent Fever Within 48 Hours Sepsis New/Unexplained Change in Mental Status Sepsis Action Taken by Nursing 11/30/23 09:51 11/30/23 10:03 11/30/23 10:24 Temperature Temperature Source Pulse Rate 102 H 108 H 101 H Pulse Rate [Apical] Pulse Rate from SpO2 Sensor 108 H 102 H Respiratory Rate 19 17 Respiratory Effort / Characteristics Respiratory Depth Blood Pressure Blood Pressure [Right Arm] Blood Pressure Mean Blood Pressure Mean [Right Arm] Blood Pressure Position Blood Pressure Position [Right Arm] Pulse Oximetry 96 97 Oxygen Delivery Method Sepsis Recent Fever Within 48 Hours Sepsis New/Unexplained Change in Mental Status Sepsis Action Taken by Nursing 11/30/23 10:30 11/30/23 10:33 11/30/23 10:48 Temperature Temperature Source Pulse Rate 96 H 97 H Pulse Rate [Apical] Pulse Rate from SpO2 Sensor 96 H 93 H Respiratory Rate 15 16 Respiratory Effort / Characteristics Respiratory Depth Blood Pressure 155/96 H Blood Pressure [Right Arm] Blood Pressure Mean 116 Blood Pressure Mean [Right Arm] Blood Pressure Position Blood Pressure Position [Right Arm] Pulse Oximetry 98 100 Oxygen Delivery Method Sepsis Recent Fever Within 48 Hours Sepsis New/Unexplained Change in Mental Status Sepsis Action Taken by Nursing 11/30/23 11:00 11/30/23 11:09 11/30/23 11:30 Temperature Temperature Source Pulse Rate 105 H Pulse Rate [Apical] Pulse Rate from SpO2 Sensor Respiratory Rate 21 Respiratory Effort / Characteristics Respiratory Depth Blood Pressure 166/111 H 195/129 H Blood Pressure [Right Arm] Blood Pressure Mean 126 151 Blood Pressure Mean [Right Arm] Blood Pressure Position Blood Pressure Position [Right Arm] Pulse Oximetry Oxygen Delivery Method Sepsis Recent Fever Within 48 Hours Sepsis New/Unexplained Change in Mental Status Sepsis Action Taken by Nursing 11/30/23 11:39 11/30/23 12:09 11/30/23 12:36 Temperature Temperature Source Pulse Rate 92 H 95 H 109 H Pulse Rate [Apical] Pulse Rate from SpO2 Sensor 89 87 104 H Respiratory Rate 16 22 20 Respiratory Effort / Characteristics Respiratory Depth Blood Pressure 166/114 H Blood Pressure [Right Arm] Blood Pressure Mean 131 Blood Pressure Mean [Right Arm] Blood Pressure Position Blood Pressure Position [Right Arm] Pulse Oximetry 98 97 97 Oxygen Delivery Method Sepsis Recent Fever Within 48 Hours Sepsis New/Unexplained Change in Mental Status Sepsis Action Taken by Nursing 11/30/23 12:54 11/30/23 13:00 11/30/23 13:03 Temperature Temperature Source Pulse Rate 109 H 111 H Pulse Rate [Apical] Pulse Rate from SpO2 Sensor 108 H Respiratory Rate 20 21 Respiratory Effort / Characteristics Respiratory Depth Blood Pressure 150/104 H Blood Pressure [Right Arm] Blood Pressure Mean 113 Blood Pressure Mean [Right Arm] Blood Pressure Position Blood Pressure Position [Right Arm] Pulse Oximetry 97 Oxygen Delivery Method Sepsis Recent Fever Within 48 Hours Sepsis New/Unexplained Change in Mental Status Sepsis Action Taken by Nursing 11/30/23 13:21 11/30/23 13:30 11/30/23 13:33 Temperature Temperature Source Pulse Rate 104 H 108 H Pulse Rate [Apical] Pulse Rate from SpO2 Sensor 101 H 108 H Respiratory Rate 16 20 Respiratory Effort / Characteristics Respiratory Depth Blood Pressure 138/99 Blood Pressure [Right Arm] Blood Pressure Mean 119 Blood Pressure Mean [Right Arm] Blood Pressure Position Blood Pressure Position [Right Arm] Pulse Oximetry 96 96 Oxygen Delivery Method Sepsis Recent Fever Within 48 Hours Sepsis New/Unexplained Change in Mental Status Sepsis Action Taken by Nursing Laboratory Data 11/30/23 09:52 11/30/23 11:10 Lab Results 11/30/23 11/30/23 11/30/23 Range/Units 09:52 11:10 11:47 WBC 8.94 (4.8-10.8) K/ul RBC 5.98 (4.70-6.10) M/uL Hgb 16.1 (14.0-18.0) g/dl Hct 49.3 (42.0-52.0) % MCV 82.4 (80.0-100.0) fL MCH 26.9 (25.0-34.0) pg MCHC 32.7 (32.0-36.0) g/dL RDW Std Deviation 45.6 (36.4-46.3) fL RDW Coeff of Shanelle 15.1 H (11.5-14.5) % Plt Count 190 (130-400) K/uL MPV 10.1 (9.4-12.4) fL Immature Gran % (Auto) 0.1 % Neut % (Auto) 91.6 % Lymph % (Auto) 2.5 % Antelope % (Auto) 5.7 % Eos % (Auto) 0.0 % Baso % (Auto) 0.1 % Neut # (Auto) 8.19 H (1.40-6.50) K/uL Lymph # (Auto) 0.22 L (1.20-3.40) K/uL Antelope # (Auto) 0.51 (0.11-0.59) K/uL Eos # (Auto) 0.00 (0.00-0.50) K/uL Baso # (Auto) 0.01 (0.00-0.20) K/uL Immature Gran # (Auto) 0.01 (0.01-0.20) K/uL PT Cancelled Cancelled INR Cancelled Cancelled Sodium 133 L (136-145) mmol/L Potassium TNP 3.8 Chloride 92 L (98-107) mmol/L Carbon Dioxide 30 (21-32) mmol/L Anion Gap 11 (3-11) BUN 13 (6-23) mg/dl Creatinine 0.86 (0.6-1.4) mg/dl Est Cr Clr Drug Dosing 77.2 ml/min Est GFR ( Amer) 94.9 ml/min Est GFR (Non-Af Amer) 81.9 ml/min BUN/Creatinine Ratio 15.1 (10-20) Glucose 154 H (70-99(Fasting)) mg/dl Lactate 2.2 H* (0.4-2.0) mmol/L Calcium 11.1 H (8.6-10.3) mg/dl Total Bilirubin 0.7 (0.2-1.0) mg/dl AST TNP 27 ALT 13 (7-52) U/L Alkaline Phosphatase 95 (34-104) U/L Troponin I High Sens 9.9 (0-20) pg/ml Total Protein 8.3 (6.0-8.3) gm/dl Albumin 5.0 (3.4-5.0) gm/dl Globulin 3.3 (2.5-4.0) gm/dl Albumin/Globulin Ratio 1.5 (0.9-2) Lipase 28 (11-82) U/L 11/30/23 11/30/23 Range/Units 11:49 13:03 WBC (4.8-10.8) K/ul RBC (4.70-6.10) M/uL Hgb (14.0-18.0) g/dl Hct (42.0-52.0) % MCV (80.0-100.0) fL MCH (25.0-34.0) pg MCHC (32.0-36.0) g/dL RDW Std Deviation (36.4-46.3) fL RDW Coeff of Shanelle (11.5-14.5) % Plt Count (130-400) K/uL MPV (9.4-12.4) fL Immature Gran % (Auto) % Neut % (Auto) % Lymph % (Auto) % Antelope % (Auto) % Eos % (Auto) % Baso % (Auto) % Neut # (Auto) (1.40-6.50) K/uL Lymph # (Auto) (1.20-3.40) K/uL Antelope # (Auto) (0.11-0.59) K/uL Eos # (Auto) (0.00-0.50) K/uL Baso # (Auto) (0.00-0.20) K/uL Immature Gran # (Auto) (0.01-0.20) K/uL PT 11.3 INR 1.0 Sodium (136-145) mmol/L Potassium Chloride (98-107) mmol/L Carbon Dioxide (21-32) mmol/L Anion Gap (3-11) BUN (6-23) mg/dl Creatinine (0.6-1.4) mg/dl Est Cr Clr Drug Dosing ml/min Est GFR ( Amer) ml/min Est GFR (Non-Af Amer) ml/min BUN/Creatinine Ratio (10-20) Glucose (70-99(Fasting)) mg/dl Lactate 2.0 (0.4-2.0) mmol/L Calcium (8.6-10.3) mg/dl Total Bilirubin (0.2-1.0) mg/dl AST ALT (7-52) U/L Alkaline Phosphatase (34-104) U/L Troponin I High Sens (0-20) pg/ml Total Protein (6.0-8.3) gm/dl Albumin (3.4-5.0) gm/dl Globulin (2.5-4.0) gm/dl Albumin/Globulin Ratio (0.9-2) Lipase (11-82) U/L Administered Medications Discontinued Medications Sodium Chloride (Nss) 1,000 mls @ 999 mls/hr IV .Q1H1M STA Stop: 11/30/23 10:13 Last Infusion: 07/09/24 12:31 Dose: Infused Documented By: Admin: 11/30/23 10:01 Dose: 999 mls/hr Documented By: HANNAH Ioversol (Optiray 320 100ml) 94 ml IV ONCE ONE Stop: 11/30/23 11:18 Last Admin: 11/30/23 11:17 Dose: 94 ml Documented By: LEONOR Morphine Sulfate (Morphine Sulfate 4 Mg/Ml 1 Ml Carp\Vial) 4 mg IV NOW STA Stop: 11/30/23 09:20 Last Admin: 11/30/23 10:01 Dose: 4 mg Documented By: HANNAH Ondansetron HCl (Ondansetron Inj 2 Mg/Ml 2 Ml Vial) 4 mg IV NOW STA Stop: 11/30/23 09:20 Last Admin: 11/30/23 10:01 Dose: 4 mg Documented By: HANNAH Ondansetron HCl (Ondansetron Inj 2 Mg/Ml 2 Ml Vial) 4 mg IV NOW STA Stop: 11/30/23 12:20 Last Admin: 11/30/23 12:28 Dose: 4 mg Documented By: HANNAH Imaging Data Radiologist's Impression: Abdomen/Pelvis CT 11/30/23 09:18 CT SCAN OF THE ABDOMEN AND PELVIS WITH IV CONTRAST CLINICAL HISTORY: Nausea and vomiting. COMPARISON STUDY: Abdominal CT dated 09/03/2023. TECHNIQUE: Following the IV administration of 94 cc of Optiray 320, CT scan of the abdomen and pelvis is performed from the lung bases to the proximal femora. Images are reviewed in the axial, sagittal, and coronal planes. IV contrast was administered without complication. A dose lowering technique was utilized adhering to the principles of ALARA. CT DOSE: 1344.71 mGy.cm FINDINGS: Lung bases: The heart is enlarged and without pericardial effusion. The coronary arteries are densely calcified. The distal esophagus appears thick walled. There is a small hiatal hernia. A small fat-containing Bochdalek hernia is noted on the right. There is bibasilar scarring/atelectasis. No airspace consolidation typical for pneumonia or pleural effusion is identified. Liver: The contrast-enhanced liver is normal in size, contour, and attenuation. There is no intrahepatic biliary ductal dilatation. There are scattered calcified hepatic granulomas. The hepatic veins and portal veins are patent. A 14 mm left lobe cyst is incidentally noted. Gallbladder: There is a 1.7 cm calcified gallstone in the fundal region, with no CT evidence of acute cholecystitis. Spleen: Normal in size and attenuation. Pancreas: Moderately atrophic and grossly unremarkable. Adrenal glands: Unremarkable. Kidneys: The contrast enhanced kidneys demonstrate cortical atrophy and are without hydronephrosis. The kidneys enhance symmetrically. A 1.9 cm cyst is seen on the right. Additional scattered subcentimeter cortical hypodensities also likely represent cysts but are too small for definitive characterization. Cortical scarring is seen in the left upper pole. Abdominal vasculature: The abdominal aorta is normal in course and caliber noting moderate atherosclerotic calcification. Bowel: There is postoperative change involving the right colon with ileocolic anastomosis. The sigmoid colon is markedly redundant. The stomach and proximal small bowel loops are markedly dilated and fluid-filled measuring up to 4 cm diameter. Focal dilatation is seen at a small bowel anastomosis in the right mid abdomen. There is an incarcerated loop of small bowel within a right groin hernia as seen on axial image #306. The small bowel distal to the hernia in the colon are decompressed, and the hernia represents the site of obstruction. No pneumatosis intestinalis or portal venous gas is seen. There is interloop fluid. Peritoneum: There is a small volume of abdominopelvic ascites. No intraperitoneal free air is seen. A midline surgical scar is noted. Lymphadenopathy: None. Pelvic viscera: The prostate gland is enlarged and heterogeneous. The bladder wall is thickened/trabeculated indicating chronic outlet obstruction. There is a bowel and fluid containing right groin hernia. Skeletal structures: The skeletal structures are osteopenic. There is moderate to advanced cervical spondylosis. No lytic or blastic lesions are seen. IMPRESSION: 1. High-grade small bowel obstruction secondary to an incarcerated right groin hernia. 2. No intraperitoneal free air is identified and there is no pneumatosis intestinalis or portal venous gas. There is intraloop fluid and a small volume of ascites. 3. Postsurgical change is noted in the right colon. 4. Cardiomegaly noting advanced coronary artery atherosclerosis. 5. Cholelithiasis. 6. Additional findings as above. ACT 112: Negative or not required by law. Electronically signed by: Dashawn Rivera M.D. 11/30/2023 11:45 AM Discharge Plan Visit Data Chief Complaint: Abdominal Pain Stated Complaint: Abdominal Pain, N/V ED Provider: Tacos Anderson Discharge Problem: SBO (small bowel obstruction) Forms Stand Alone Forms: My [facility] Prescriptions Prescriptions: No Action atorvastatin 10 mg Tablet 10 mg PO HS tamsulosin 0.4 mg Capsule 0.4 mg PO DAILY amlodipine 10 mg Tablet 10 mg PO DAILY omeprazole 20 mg Capsule,Delayed Release(Dr/Ec) 20 mg PO DAILY metoprolol tartrate 25 mg Tablet 12.5 mg PO BID Lasix 20 mg 20 mg PO DAILY Bacmin 1 tablet tablet 1 PO DAILY Procrit 40,000 unit/mL Solution 40,000 unit subcut DAILY Qty: 4 0RF Rx Instructions: Daily until 09/18 or Hgb 7 and above ferrous sulfate 220 mg (44 mg iron)/5 mL Elixir 325 mg PO QAM Qty: 473 0RF ascorbic acid (vitamin C) [Vitamin C] 500 mg Tablet 500 mg PO TID Qty: 90 0RF ergocalciferol (vitamin D2) 1,250 mcg (50,000 unit) Capsule 1,250 mcg PO Q7D Qty: 10 0RF folic acid 1 mg Tablet 1 mg PO QAM Qty: 30 0RF cyanocobalamin (vitamin B-12) 1,000 mcg tablet 1,000 mcg PO DAILY Qty: 30 0RF Referrals Referrals: Sachi RUBY [Primary Care Provider] -
[2023-11-30] MEDS: MoRPHine SULFATE 4 MG/ML 1 ML CARP\\VIAL IV STA (10:01)
[2023-11-30] MEDS: ONDANSETRON INJ 2 MG/ML 2 ML VIAL IV STA ×2 (10:01→12:28)
[2023-11-30] MEDS: SODIUM CHLORIDE 0.9% 1,000 ML IV STA (10:01)
[2023-11-30 10:15] LABS: Hematocrit (blood only) 49.3 % (42.0-52.0); Hemoglobin 16.1 g/dl (14.0-18.0); Mean Corpuscular Hemoglobin 26.9 pg (25.0-34.0); Mean Corpuscular Hgb Conc 32.7 g/dL (32.0-36.0); Mean Corpuscular Volume 82.4 fL (80.0-100.0); Mean Platelet Volume 10.1 fL (9.4-12.4); Platelet Count 190 K/uL (130-400); RDW Coefficient of Variation 15.1 % (11.5-14.5); RDW Standard Deviation 45.6 fL (36.4-46.3); Red Blood Count 5.98 M/uL (4.70-6.10); White Blood Count 8.94 K/ul (4.8-10.8)
[2023-11-30 10:34] LABS: Basophils # (auto) 0.01 K/uL (0.00-0.20); Basophils % (auto) 0.1 %; Immature Granulocytes # (auto) 0.01 K/uL (0.01-0.20); Immature Granulocytes % (auto) 0.1 %; Lymphocytes # (auto) 0.22 K/uL (1.20-3.40); Lymphocytes % (auto) 2.5 %; Monocytes # (auto) 0.51 K/uL (0.11-0.59); Monocytes % (auto) 5.7 %; Neutrophils # (auto) 8.19 K/uL (1.40-6.50); Neutrophils % (auto) 91.6 %
[2023-11-30 10:39] LABS: Alanine Aminotransferase 13 U/L (7-52); Alkaline Phosphatase 95 U/L (34-104); Anion Gap 11 (3-11); BUN Creatinine Ratio 15.1 (10-20); Blood Urea Nitrogen 13 mg/dl (6-23); Calcium 11.1 mg/dl (8.6-10.3); Carbon Dioxide 30 mmol/L (21-32); Chloride 92 mmol/L (98-107); Creatinine Clr Calc Pharmacy 77.2 ml/min; Est GFR (African American) 94.9 ml/min; Est GFR (Non-African American) 81.9 ml/min; Glucose 154 mg/dl (70-99(Fasting)); Lipase 28 U/L (11-82); Sodium 133 mmol/L (136-145)
[2023-11-30 10:41] LABS: Troponin I High Sensitivity 9.9 pg/ml (0-20)
[2023-11-30 10:48] LABS: Albumin Globulin Ratio 1.5 (0.9-2); Bilirubin,Total 0.7 mg/dl (0.2-1.0); Globulin 3.3 gm/dl (2.5-4.0); Total Protein 8.3 gm/dl (6.0-8.3)
[2023-11-30] MEDS: OPTIRAY 320 100ml IV ONE (11:17)
--- NOTE | 2023-11-30 11:46 | CT Scan Report ---
CT SCAN OF THE ABDOMEN AND PELVIS WITH IV CONTRAST CLINICAL HISTORY: Nausea and vomiting. COMPARISON STUDY: Abdominal CT dated 09/03/2023. TECHNIQUE: Following the IV administration of 94 cc of Optiray 320, CT scan of the abdomen and pelvi s is performed from the lung bases to the proximal femora. Images are reviewed in the axial, sagittal , and coronal planes. IV contrast was administered without complication. A dose lowering technique wa s utilized adhering to the principles of ALARA. CT DOSE: 1344.71 mGy.cm FINDINGS: Lung bases: The heart is enlarged and without pericardial effusion. The coronary arteries are densely calcified. The distal esophagus appears thick walled. There is a small hiatal hernia. A small fat-co ntaining Bochdalek hernia is noted on the right. There is bibasilar scarring/atelectasis. No airspace consolidation typical for pneumonia or pleural effusion is identified. Liver: The contrast-enhanced liver is normal in size, contour, and attenuation. There is no intrahepa tic biliary ductal dilatation. There are scattered calcified hepatic granulomas. The hepatic veins an d portal veins are patent. A 14 mm left lobe cyst is incidentally noted. Gallbladder: There is a 1.7 cm calcified gallstone in the fundal region, with no CT evidence of acute cholecystitis. Spleen: Normal in size and attenuation. Pancreas: Moderately atrophic and grossly unremarkable. Adrenal glands: Unremarkable. Kidneys: The contrast enhanced kidneys demonstrate cortical atrophy and are without hydronephrosis. T he kidneys enhance symmetrically. A 1.9 cm cyst is seen on the right. Additional scattered subcentime ter cortical hypodensities also likely represent cysts but are too small for definitive characterizat ion. Cortical scarring is seen in the left upper pole. Abdominal vasculature: The abdominal aorta is normal in course and caliber noting moderate atheroscle rotic calcification. Bowel: There is postoperative change involving the right colon with ileocolic anastomosis. The sigmoi d colon is markedly redundant. The stomach and proximal small bowel loops are markedly dilated and fl uid-filled measuring up to 4 cm diameter. Focal dilatation is seen at a small bowel anastomosis in th e right mid abdomen. There is an incarcerated loop of small bowel within a right groin hernia as seen on axial image #306. The small bowel distal to the hernia in the colon are decompressed, and the her dev represents the site of obstruction. No pneumatosis intestinalis or portal venous gas is seen. The re is interloop fluid. Peritoneum: There is a small volume of abdominopelvic ascites. No intraperitoneal free air is seen. A midline surgical scar is noted. Lymphadenopathy: None. Pelvic viscera: The prostate gland is enlarged and heterogeneous. The bladder wall is thickened/trabe culated indicating chronic outlet obstruction. There is a bowel and fluid containing right groin álvaro ia. Skeletal structures: The skeletal structures are osteopenic. There is moderate to advanced cervical s pondylosis. No lytic or blastic lesions are seen. IMPRESSION: 1. High-grade small bowel obstruction secondary to an incarcerated right groin hernia. 2. No intraperitoneal free air is identified and there is no pneumatosis intestinalis or portal venou s gas. There is intraloop fluid and a small volume of ascites. 3. Postsurgical change is noted in the right colon. 4. Cardiomegaly noting advanced coronary artery atherosclerosis. 5. Cholelithiasis. 6. Additional findings as above. ACT 112: Negative or not required by law. Electronically signed by: Dashawn Rivera M.D. 11/30/2023 11:45 AM
[2023-11-30 11:47] LABS: Potassium 3.8 mmol/L (3.5-5.1)
--- NOTE | 2023-11-30 12:20 | Electrocardiogram Report ---
Test Reason : Blood Pressure : / mmHG Vent. Rate : 106 BPM Atrial Rate : 106 BPM P-R Int : 142 ms QRS Dur : 084 ms QT Int : 308 ms P-R-T Axes : 028 009 088 degrees QTc Int : 409 ms Sinus tachycardia Otherwise normal ECG When compared with ECG of 31-AUG-2023 20:17, Premature atrial complexes are no longer Present Vent. rate has increased BY 39 BPM Confirmed by Cyrus Aguilar ([id number]) on 11/30/2023 12:19:38 PM Referred By: Confirmed By:Tk Aguilar
[2023-11-30 13:53] LABS: Prothrombin Time 11.3 Seconds (9.0-12.0)
--- NOTE | 2023-11-30 13:53 | Surgery Consultation ---
Date of Consultation November 30, 2023 Assessment & Plan (1) Recurrent right inguinal hernia: Even though it is likely reduced I believe the best course of action would be to repair the hernia sooner than later. It is extremely likely to re-incarcerated in the near future. Because of his prior history I am going to take a laparoscopic approach. We discussed potential risks which include bleeding, infection, injury to another organ such as bowel bladder ureter etc., DVT, PE, NH, CVA etc. Following our discussion I answered all of his questions. He is agreeable. We will proceed today with a laparoscopic repair of a recurrent right inguinal hernia with mesh (2) Small bowel obstruction: (3) Throat cancer: (4) High blood pressure: (5) High cholesterol: History of Present Illness History of Present Illness 78-year-old inmate at the local correctional facility. Began having lower abdominal pain with nausea and vomiting yesterday afternoon. Presents to the emergency room where workup reveals an incarcerated right inguinal hernia with bowel obstruction. It was thought to be reduced by the emergency room physician. The patient is having less pain however he continues to be nauseated with small amounts of vomiting. Allergies Allergy/AdvReac Type Severity Reaction Status Date / Time No Known Allergies Allergy Verified 01/01/19 11:57 Home Medications Medication Instructions Recorded Confirmed Type amlodipine 10 mg tablet 10 mg PO DAILY 01/01/19 09/01/23 History atorvastatin 10 mg tablet 10 mg PO HS 01/01/19 09/01/23 History metoprolol tartrate 25 mg tablet 12.5 mg PO BID 01/01/19 09/01/23 History omeprazole 20 mg capsule,delayed 20 mg PO DAILY 01/01/19 09/01/23 History release tamsulosin 0.4 mg capsule 0.4 mg PO DAILY 01/01/19 09/01/23 History Bacmin 1 PO DAILY 09/01/23 History Lasix 20 mg PO DAILY 09/01/23 09/01/23 History ascorbic acid (vitamin C) 500 mg 500 mg PO TID #90 tabs 09/10/23 Rx tablet (Vitamin C) cyanocobalamin (vitamin B-12) 1,000 mcg PO DAILY #30 tabs 09/10/23 Rx 1,000 mcg tablet epoetin alyssa 40,000 unit/mL 40,000 unit subcut DAILY #4 mL 09/10/23 Rx injection solution (Procrit) ergocalciferol (vitamin D2) 1,250 1,250 mcg PO Q7D #10 caps 09/10/23 Rx mcg (50,000 unit) capsule ferrous sulfate 220 mg (44 mg 325 mg (7.3864 mL) PO QAM #473 mL 09/10/23 Rx iron)/5 mL oral elixir folic acid 1 mg tablet 1 mg PO QAM #30 tabs 09/10/23 Rx Patient History Medical History (Updated 11/30/23 @ 13:55 by Randy Damon, DO) Volvulus of intestine Encounter for pre-operative examination Abdominal pain, acute Social History Smoking Status: Never smoker Hx Alcohol Use: No Hx Substance Use: No Preferred Language: Greenlandic Communication Ability: Effective Dye Range Tender Required: No Beliefs That Will Affect Care: None Feels Safe at Home: Yes Physical Exam Constitutional: WD/WN, vitals as above no acute distress and not ill appearing Eyes: PERRL, conjunctivae normal, anicteric sclerae EOM intact bilaterally ENMT: external ear and nose normal, oropharynx normal Ears: no hearing impairment Neck: trachea midline, no thyromegaly Respiratory: normal respiratory effort; no respiratory distress and does not use accessory muscles Cardiovascular: Rate/Rhythm: regular rate and regular rhythm Gastrointestinal (Abdomen): Soft. Minimal lower abdominal tenderness. Recent but well-healed midline incision. Right inguinal incision from history of prior inguinal hernia repair in the past. No definitive incarcerated hernia. Skin: no rashes, warm and dry Psychiatric: Orientation: alert, oriented x 3 and cooperative Results & Data Vital Signs (Past 12 Hours) Vital Signs Temp Pulse Pulse Resp BP BP Pulse Ox 11/30/23 12:36 109 H 20 166/114 H 97 11/30/23 12:09 95 H 22 97 11/30/23 11:39 92 H 16 98 11/30/23 11:30 195/129 H 11/30/23 11:09 105 H 21 11/30/23 11:00 166/111 H 11/30/23 10:48 97 H 16 100 11/30/23 10:33 96 H 15 98 11/30/23 10:30 155/96 H 11/30/23 10:24 101 H 17 97 11/30/23 10:03 108 H 19 96 11/30/23 09:51 102 H 11/30/23 09:39 103 H 21 96 11/30/23 09:39 103 H 18 96 11/30/23 09:33 102 H 18 174/106 H 96 11/30/23 09:27 110 H 19 11/30/23 09:14 117 H 19 97 11/30/23 09:14 36.9 C 109 H 18 174/106 H 97 O2 Del Method 11/30/23 12:36 11/30/23 12:09 11/30/23 11:39 11/30/23 11:30 11/30/23 11:09 11/30/23 11:00 11/30/23 10:48 11/30/23 10:33 11/30/23 10:30 11/30/23 10:24 11/30/23 10:03 11/30/23 09:51 11/30/23 09:39 11/30/23 09:39 Room Air 11/30/23 09:33 Room Air 11/30/23 09:27 11/30/23 09:14 Room Air 11/30/23 09:14 Room Air PG Care Time/CCT Total # of Minutes Spent Total Time Spent with Patient: Total time spent is greater than 50% in coordination of care (as documented) at patient's floor/unit and/or counseling patient: Coding Level of Care Code 85833 OP VST NEW MOD 45 MIN Diagnoses Recurrent right inguinal hernia K40.91 Small bowel obstruction K56.609 Throat cancer C14.0 High blood pressure I10 High cholesterol E78.00
[2023-11-30] MEDS ORDERED: fentaNYL citrate PF 100 MCG/2 ML VIAL IV PRN (15:07)
[2023-11-30] MEDS ORDERED: ePHEDrine sulfate 50 MG/ML AMP IV PRN (15:07)
[2023-11-30] MEDS ORDERED: ATROPINE SULFATE 0.1 MG/ML 10ML SYR IV PRN (15:07)
[2023-11-30] MEDS ORDERED: ONDANSETRON INJ 2 MG/ML 2 ML VIAL IV PRN ×2 (15:07→18:42)
--- NOTE | 2023-11-30 15:07 | Anesthesiology Consultation ---
Date of Service November 30, 2023 Assessment & Plan Chart Review Chart Review: Acceptable Risk for Surgery Consults Requested none ASA [id number] Proposed Anesthesia Anesthesia Type: General Risk / Benefits Reviewed With: PT / POA / Parent / Guardian, Accepts Plan and Informed Consent Obtained History Surgery Operation Date: 11/30/23 14:20 Proposed Procedures p Laparoscopic Right Inguinal Hernia Repair with Mesh - Randy Damon, DO Height/Weight Height: 5 ft 10 in Weight: 89.8 kg Allergies Allergy/AdvReac Type Severity Reaction Status Date / Time No Known Allergies Allergy Verified 01/01/19 11:57 Medications Home Medications Medication Instructions Recorded Confirmed Last Taken amlodipine 10 mg tablet 10 mg PO DAILY 01/01/19 09/01/23 Unknown atorvastatin 10 mg tablet 10 mg PO HS 01/01/19 09/01/23 Unknown metoprolol tartrate 25 mg tablet 12.5 mg PO BID 01/01/19 09/01/23 Unknown omeprazole 20 mg capsule,delayed 20 mg PO DAILY 01/01/19 09/01/23 Unknown release tamsulosin 0.4 mg capsule 0.4 mg PO DAILY 01/01/19 09/01/23 Unknown Bacmin 1 PO DAILY 09/01/23 Unknown Lasix 20 mg PO DAILY 09/01/23 09/01/23 Unknown ascorbic acid (vitamin C) 500 mg 500 mg PO TID #90 tabs 09/10/23 Unknown tablet (Vitamin C) cyanocobalamin (vitamin B-12) 1,000 mcg PO DAILY #30 tabs 09/10/23 Unknown 1,000 mcg tablet epoetin alyssa 40,000 unit/mL 40,000 unit subcut DAILY #4 mL 09/10/23 Unknown injection solution (Procrit) ergocalciferol (vitamin D2) 1,250 1,250 mcg PO Q7D #10 caps 09/10/23 Unknown mcg (50,000 unit) capsule ferrous sulfate 220 mg (44 mg 325 mg (7.3864 mL) PO QAM #473 mL 09/10/23 Unknown iron)/5 mL oral elixir folic acid 1 mg tablet 1 mg PO QAM #30 tabs 09/10/23 Unknown NPO Date Last Intake of Fluids: 11/29/23 Time Last Intake of Fluids: 21:30 Date Last Intake of Solids: 11/29/23 Time Last Intake of Solids: 14:45 Past Medical History Medical History Volvulus of intestine Encounter for pre-operative examination Abdominal pain, acute Exercise / Class Metabolic Activity III < 4 Walking/Shop/Light housework Past Anesthesia History No Hx of Anesthesia Complications and No Family Hx of Anesthesia Complications History of PONV No Hx of PONV and No Hx of Motion Sickness Social History Smoking Status: Never smoker Hx Alcohol Use: No Hx Substance Use: No Physical Exam Vital Signs Last Vital Signs Temp 98.4 F 11/30/23 14:54 Pulse 100 H 11/30/23 14:54 Resp 22 11/30/23 14:54 BP 144/92 H 11/30/23 14:54 Pulse Ox 96 11/30/23 14:54 O2 Del Method Nasal Cannula 11/30/23 14:58 O2 Flow Rate 2 11/30/23 14:58 ENMT Mouth: + dentures Thyromental Distance: > or= 3.5 Finger Breadths Mallampati Class: II Neck normal visual inspection Respiratory normal respiratory effort Auscultation: lungs clear to auscultation bilaterally Cardiovascular Rate/Rhythm: regular rate and regular rhythm Testing Laboratory Results 11/30/23 09:52 11/30/23 11:10 PT 11.3 Seconds (9.0-12.0) 11/30/23 13:03 INR 1.0 (0.9-1.1) 11/30/23 13:03 Electrocardiogram Date: 11/30/23 Sinus tachycardia, rate 106 bpm Otherwise normal ECG When compared with ECG of 31-AUG-2023 20:17, Premature atrial complexes are no longer Present Vent. rate has increased BY 39 BPM Confirmed by Cyrus Aguilar ([id number]) on 11/30/2023 12:19:38 PM
[2023-11-30] MEDS ORDERED: ONDANSETRON INJ 2 MG/ML 2 ML VIAL ONE (15:36)
[2023-11-30] MEDS ORDERED: LIDOCAINE 2% 2 ML VIAL/AMP(20MG/ML) INFIL ONE (15:36)
[2023-11-30] MEDS ORDERED: PROPOFOL IV EMULSION 10 MG/ML 20 ML VIAL IV ONE (15:36)
[2023-11-30] MEDS ORDERED: DEXAMETHASONE SOD INJ 4 MG/ML VIAL ONE (15:36)
[2023-11-30] MEDS ORDERED: MIDAZOLAM HCL 1 MG/ML 2ML VIAL ONE (15:37)
[2023-11-30] MEDS ORDERED: fentaNYL citrate PF 100 MCG/2 ML VIAL ONE ×2 (15:37→16:52)
[2023-11-30] MEDS: ceFAZolin 2000MG 2,000 MG/15 ML SYR IV ONE (15:46)
[2023-11-30] MEDS ORDERED: PHENYLEPHRINE 100MCG/ML 10ML SYR IV ONE (16:04)
[2023-11-30] MEDS ORDERED: SODIUM CHLORIDE 0.9% PF INJ 10 ML VIAL ONE (16:04)
[2023-11-30] MEDS ORDERED: VASOPRESSIN 20 UNIT/ML VIAL ONE (16:04)
[2023-11-30] MEDS ORDERED: ROCURONIUM BROMIDE 10 MG/ML 5 ML VIAL IV ONE (16:05)
[2023-11-30] MEDS ORDERED: SUGAMMADEX SODIUM 200 MG/2 ML VIAL IV ONE (16:45)
[2023-11-30] MEDS: BUPIVACAINE/EPINEPHRINE 0.5% MPF 1:200,000 30 ML VIAL ONE (16:49)
--- NOTE | 2023-11-30 16:59 | Operative Report ---
PG Post Operative Report Pre & Post Diagnosis Operation Date: 11/30/23 14:20 Pre-Op Diagnosis: Right inguinal hernia; SBO Post-Op Diagnosis: Right inguinal hernia ( recurrent); SBO; adhesions I identified the patient and participated in the time-out.: Yes Procedure Operation Date: 11/30/23 14:20 Actual Procedures p Laparoscopic Right Inguinal Hernia Repair (recurrent) with Mesh, Enterolysis, Release small bowell obstruction(Right) - Randy Damon DO Surgeon Randy Damon DO Prefabricated Houses Trimmer joann Nassar Estimated Blood Loss 5 Findings Consistent with Post-Op Diagnosis Specimens none Description of Procedure After informed consent was obtained the patient was taken to the operating room and placed in supine position. After successful intubation the abdomen was shaved. A Torres catheter was inserted sterilely as well as an NG tube. The abdomen was sterilely prepped and draped in usual fashion. I began by making an incision with 11 blade scalpel and left upper quadrant. This was carried down through the soft tissue using cautery. The anterior fascia was opened using cautery and 2 #0 Vicryl stay sutures were placed. Peritoneum was elevated using hemostats and incised under direct vision using a Metzenbaum scissor. A finger sweep was performed. A 12 mm Garcia trocar was placed and the abdomen was insufflated to 18 mmHg. Laparoscope was inserted and the abdomen examined 360 degrees. There were adhesions to the anterior abdominal wall. I placed a left lower quadrant 5 mm trocar in the left mid abdominal 5 mm trocar both under direct vision. I began by taking down the adhesions to the anterior abdominal wall using the harmonic scalpel as well as blunt dissection. Once we had the adhesions down I was able to readily identify a small right inguinal hernia. There was small bowel incarcerated within it. The proximal bowel was dilated distal bowel was decompressed. By gently providing traction internally and manual pressure externally we were able to gently reduce the obstruction. There was some erythema and mild ischemia to the bowel however it did not appear to be infarcted and there was no serosal damage. After reducing the hernia sac I then placed a 12 cm circular mesh into the abdomen and unrolled it such that the anti-adhesive barrier was facing the bowel. We placed it over top of the hernia defect and secured it using a pro tack device. I placed several tacks above the iliopubic tract and 1 into Howard's ligament of the pubic bone. The mesh laid nice and flat and tension-free. I look around the abdomen showed no other abnormalities. The trocars were all removed and the abdomen desufflated. The fascia of the camera port was closed using 0 Vicryl in a [id number] fashion. All the wounds were irrigated and closed using 4-0 Monocryl. Marcaine with epinephrine were injected around them for postoperative analgesia and skin glue used as a dressing. My physician public services assistant was present through the entire case and was instrumental with exposure running the camera placed on the mesh wound closure and dressing placement. I attest to the content of the Intraoperative Record and any orders documented therein. Any exceptions are noted below.
[2023-11-30] MEDS: LABETALOL HCL IV 5 MG/ML 20ML IV STA (17:48)
--- NOTE | 2023-11-30 18:14 | Anesthesiology Progress Note ---
Date of Service November 30, 2023 Anesthesia Post Procedure Vital Signs Vital Signs: Temp Pulse Pulse Pulse Resp BP BP 11/30/23 17:50 98.6 F 75 13 127/68 11/30/23 17:48 94 H 174/105 H 11/30/23 17:40 94 H 19 174/105 H 11/30/23 17:30 87 12 177/96 H 11/30/23 17:20 92 H 17 177/108 H 11/30/23 17:13 97.5 F L 91 H 16 163/86 H 11/30/23 14:58 11/30/23 14:54 98.4 F 100 H 22 144/92 H 11/30/23 13:44 112 H 11/30/23 13:33 108 H 20 11/30/23 13:30 138/99 11/30/23 13:21 104 H 16 11/30/23 13:03 111 H 21 11/30/23 13:00 150/104 H 11/30/23 12:54 109 H 20 11/30/23 12:36 109 H 20 166/114 H 11/30/23 12:09 95 H 22 11/30/23 11:39 92 H 16 11/30/23 11:30 195/129 H 11/30/23 11:09 105 H 21 11/30/23 11:00 166/111 H 11/30/23 10:48 97 H 16 11/30/23 10:33 96 H 15 11/30/23 10:30 155/96 H 11/30/23 10:24 101 H 17 11/30/23 10:03 108 H 19 11/30/23 09:51 102 H 11/30/23 09:39 103 H 21 11/30/23 09:39 103 H 18 11/30/23 09:33 102 H 18 174/106 H 11/30/23 09:27 110 H 19 11/30/23 09:14 117 H 19 11/30/23 09:14 98.4 F 109 H 18 174/106 H Pulse Ox O2 Del Method O2 Flow Rate 11/30/23 17:50 95 Room Air 11/30/23 17:48 11/30/23 17:40 99 Oxymask 4 11/30/23 17:30 100 Oxymask 4 11/30/23 17:20 100 Oxymask 6 11/30/23 17:13 97 Oxymask 6 11/30/23 14:58 Nasal Cannula 2 11/30/23 14:54 96 Nasal Cannula 2 11/30/23 13:44 11/30/23 13:33 96 11/30/23 13:30 11/30/23 13:21 96 11/30/23 13:03 11/30/23 13:00 11/30/23 12:54 97 11/30/23 12:36 97 11/30/23 12:09 97 11/30/23 11:39 98 11/30/23 11:30 11/30/23 11:09 11/30/23 11:00 11/30/23 10:48 100 11/30/23 10:33 98 11/30/23 10:30 11/30/23 10:24 97 11/30/23 10:03 96 11/30/23 09:51 11/30/23 09:39 96 11/30/23 09:39 96 Room Air 11/30/23 09:33 96 Room Air 11/30/23 09:27 11/30/23 09:14 97 Room Air 11/30/23 09:14 97 Room Air Pain Intensity Abdomen: Pain Intensity: 0 Transfer of Care Handoff Completed per policy Notes Mental Status: alert / awake / arousable and participated in evaluation Patient Amnestic to Procedure: Yes Nausea / Vomiting: adequately controlled Pain: adequately controlled Airway Patency, RR, SpO2: stable & adequate BP & HR: stable & adequate Hydration State: stable & adequate Anesthetic Complications: no major complications apparent and Pt Satisfied with anesthetic care
[2023-11-30] MEDS: LABETALOL HCL IV 5 MG/ML 20ML IV ONE (18:22)
[2023-11-30] MEDS: ceFAZolin 2,000 MG/15 ML IV PUSH IV ONE (18:22)
[2023-11-30] MEDS ORDERED: MoRPHine SULFATE 4 MG/ML 1 ML CARP\\VIAL IV PRN (18:42)
[2023-11-30] MEDS ORDERED: MoRPHine SULFATE 2 MG/ML CARP IV PRN (18:42)
--- NOTE | 2023-11-30 19:25 | XRay Report ---
KUB CLINICAL HISTORY: Enteric tube placement. FINDINGS: An AP, portable, upright view of the lower chest and upper abdomen is correlated with abdom inal CT dated 11/30/2023. An enteric tube has been placed. The tip projects below the chika and approx imately 7.5 cm above the diaphragm. Distended loops of bowel in the upper abdomen are consistent with known bowel obstruction. No intraperitoneal free air is seen below the diaphragm. The lung bases are clear as imaged. The heart is mildly enlarged. IMPRESSION: 1. The tip of the enteric tube terminates approximately 7.5 cm below the diaphragm. This should be ad vanced. 2. Persistent small bowel obstruction. Electronically signed by: Dashawn Rivera M.D. 11/30/2023 7:24 PM
[2023-11-30] MEDS: LACTATED RINGER'S 1,000 ML IV SCH (20:01)
[2023-11-30] MEDS: ACETAMINOPHEN 1,000 MG/100 ML VIAL IV SCH (20:01)
--- NOTE | 2023-11-30 20:52 | Consultation ---
Date of Consultation November 30, 2023 Assessment & Plan (1) Recurrent right inguinal hernia: 78-year-old male coming from shelter with past medical history significant for hypertension, hyperlipidemia, BPH, GERD, chronic hyponatremia, right tonsillar cancer s/p surgery/radiation, past tobacco abuse, present with lower abdominal pain with nausea vomiting since yesterday afternoon and workup revealed incarcerated right inguinal hernia with bowel obstruction and patient is s/p laparoscopic right inguinal hernia repair with mesh, enterolysis and release of small bowel obstruction. Tolerated procedure okay. Patient current resting comfortably. Currently denies abdominal pain. Currently denies nausea. No headache. No blurred visions. Has some dry throat. Has Cough. Denies any chest pain. No shortness of breath. Afebrile. Patient states last bowel movement today morning and it was hard. Otherwise ambulating okay. Hemodynamics are okay currently. Patient was in hospital on August 2023 with volvulus of intestine at that time patient is s/p exploratory laparotomy with right colon resection on 09/01/2023. At that time post operative course complicated by GENE and postoperatively anemia. Patient hemoglobin dropped into 5 range. Was asymptomatic. Hematology was consulted. As patient is Gnosticism. Was given IV iron. Also B12 folate vitamin C supplementation. And he also given erythropoietin.. Currently hemoglobin is stable. recurrent right inguinal hernia incarcerated right inguinal hernia with bowel obstruction s/p laparoscopic right inguinal hernia repair with mesh, enterolysis and release of small bowel obstruction management as per surgery hypertension continues home medication of amlodipine, metoprolol and lisinopril and Lasix will monitor hyperlipidemia on statin BPH on Flomax GERD on omeprazole history of right tonsillar cancer s/p surgery/radiation history of chronic hyponatremia sodium 133 chronic bilateral lower extremity edema on Lasix currently seems okay. 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 DVT prophylaxis and disposition as per surgery History of Present Illness Reason for Consultation: S/p laparoscopic right inguinal hernia repair with mesh, enterolysis, release of small bowel obstruction Attending Physician: Randy Damon, DO History of Present Illness 78-year-old male coming from shelter with past medical history significant for hypertension, hyperlipidemia, BPH, GERD, chronic hyponatremia, right tonsillar cancer s/p surgery/radiation, past tobacco abuse, present with lower abdominal pain with nausea vomiting since yesterday afternoon and workup revealed incarcerated right inguinal hernia with bowel obstruction and patient is s/p laparoscopic right inguinal hernia repair with mesh, enterolysis and release of small bowel obstruction. Tolerated procedure okay. Patient current resting comfortably. Currently denies abdominal pain. Currently denies nausea. No headache. No blurred visions. Has some dry throat. Has Cough. Denies any chest pain. No shortness of breath. Afebrile. Patient states last bowel movement today morning and it was hard. Otherwise ambulating okay. Hemodynamics are okay currently. Patient was in hospital on August 2023 with volvulus of intestine at that time patient is s/p exploratory laparotomy with right colon resection on 09/01/2023. At that time post operative course complicated by GENE and postoperatively anemia. Patient hemoglobin dropped into 5 range. Was asymptomatic. Hematology was consulted. As patient is Gnosticism. Was given IV iron. Also B12 folate vitamin C supplementation. And he also given erythropoietin.. Currently hemoglobin is stable. Past medical history. As mentioned above. Past surgical history. Neck surgery, tonsillectomy, leg surgery, hernia repair. Family history. Diabetes . Social history. Past tobacco abuse. No alcohol use. Allergies Allergy/AdvReac Type Severity Reaction Status Date / Time No Known Allergies Allergy Verified 11/30/23 15:14 Home Medications Medication Instructions Recorded Confirmed Type amlodipine 10 mg tablet 10 mg PO DAILY 11/30/23 11/30/23 History artificial tears solution eye drops 1 drp ophthalmic (eye) TID 11/30/23 11/30/23 History ascorbic acid (vitamin C) 500 mg 500 mg PO DAILY 11/30/23 11/30/23 History tablet (Vitamin C) atorvastatin 10 mg tablet 10 mg PO HS 11/30/23 11/30/23 History cyanocobalamin (vitamin B-12) 500 500 mcg PO DAILY 11/30/23 11/30/23 History mcg tablet docusate sodium 100 mg capsule 200 mg PO BID 11/30/23 11/30/23 History (Colace) folic acid 1 mg tablet 1 mg PO DAILY 11/30/23 11/30/23 History furosemide 20 mg tablet (Lasix) 20 mg PO DAILY 11/30/23 11/30/23 History lisinopril 20 mg tablet 20 mg PO DAILY 11/30/23 11/30/23 History metoprolol tartrate 25 mg tablet 12.5 mg PO BID 11/30/23 11/30/23 History omeprazole 20 mg capsule,delayed 20 mg PO DAILY 11/30/23 11/30/23 History release tamsulosin 0.4 mg capsule (Flomax) 0.4 mg PO HS 11/30/23 11/30/23 History Patient History Medical History Volvulus of intestine Encounter for pre-operative examination Abdominal pain, acute Social History Smoking Status: Never smoker Hx Alcohol Use: No Hx Substance Use: No Preferred Language: Luxembourgish Communication Ability: Effective 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 Lungs- clear to auscultation no wheezing or crackles Heart- regular rhythm; no murmur, no gallop. Abdomen- diminished bowel sounds, soft,laparoscopic sites no drainage or erythema seen. No distension. Extremities- no pretibial edema, no erythema seen Neuro- alert, oriented , EOMI; no facial palsy; no dysarthria; moves extremities. Results & Data Vital Signs (Past 12 Hours) Vital Signs Temp Pulse Pulse Pulse Resp BP BP 11/30/23 19:30 36.7 C 74 16 108/63 11/30/23 19:00 37.1 C 76 16 122/72 11/30/23 17:50 37.0 C 75 13 127/68 11/30/23 17:48 94 H 174/105 H 11/30/23 17:40 94 H 19 174/105 H 11/30/23 17:30 87 12 177/96 H 11/30/23 17:20 92 H 17 177/108 H 11/30/23 17:13 36.4 C L 91 H 16 163/86 H 11/30/23 14:58 11/30/23 14:54 36.9 C 100 H 22 144/92 H 11/30/23 13:44 112 H 11/30/23 13:33 108 H 20 11/30/23 13:30 138/99 11/30/23 13:21 104 H 16 11/30/23 13:03 111 H 21 11/30/23 13:00 150/104 H 11/30/23 12:54 109 H 20 11/30/23 12:36 109 H 20 166/114 H 11/30/23 12:09 95 H 22 11/30/23 11:39 92 H 16 11/30/23 11:30 195/129 H 11/30/23 11:09 105 H 21 11/30/23 11:00 166/111 H 11/30/23 10:48 97 H 16 11/30/23 10:33 96 H 15 11/30/23 10:30 155/96 H 11/30/23 10:24 101 H 17 11/30/23 10:03 108 H 19 11/30/23 09:51 102 H 11/30/23 09:39 103 H 21 11/30/23 09:39 103 H 18 11/30/23 09:33 102 H 18 174/106 H 11/30/23 09:27 110 H 19 11/30/23 09:14 117 H 19 11/30/23 09:14 36.9 C 109 H 18 174/106 H Pulse Ox O2 Del Method O2 Flow Rate 11/30/23 19:30 97 Nasal Cannula 2 11/30/23 19:00 97 Nasal Cannula 2 11/30/23 17:50 95 Room Air 11/30/23 17:48 11/30/23 17:40 99 Oxymask 4 11/30/23 17:30 100 Oxymask 4 11/30/23 17:20 100 Oxymask 6 11/30/23 17:13 97 Oxymask 6 11/30/23 14:58 Nasal Cannula 2 11/30/23 14:54 96 Nasal Cannula 2 11/30/23 13:44 11/30/23 13:33 96 11/30/23 13:30 11/30/23 13:21 96 11/30/23 13:03 11/30/23 13:00 11/30/23 12:54 97 11/30/23 12:36 97 11/30/23 12:09 97 11/30/23 11:39 98 11/30/23 11:30 11/30/23 11:09 11/30/23 11:00 11/30/23 10:48 100 11/30/23 10:33 98 11/30/23 10:30 11/30/23 10:24 97 11/30/23 10:03 96 11/30/23 09:51 11/30/23 09:39 96 11/30/23 09:39 96 Room Air 11/30/23 09:33 96 Room Air 11/30/23 09:27 11/30/23 09:14 97 Room Air 11/30/23 09:14 97 Room Air Diagnostic Findings Laboratory Results WBC 8.94 K/ul (4.8-10.8) 11/30/23 09:52 RBC 5.98 M/uL (4.70-6.10) 11/30/23 09:52 Hgb 16.1 g/dl (14.0-18.0) 11/30/23 09:52 Hct 49.3 % (42.0-52.0) 11/30/23 09:52 MCV 82.4 fL (80.0-100.0) 11/30/23 09:52 MCH 26.9 pg (25.0-34.0) 11/30/23 09:52 MCHC 32.7 g/dL (32.0-36.0) 11/30/23 09:52 RDW Std Deviation 45.6 fL (36.4-46.3) 11/30/23 09:52 RDW Coeff of Shanelle 15.1 % (11.5-14.5) H 11/30/23 09:52 Plt Count 190 K/uL (130-400) 11/30/23 09:52 MPV 10.1 fL (9.4-12.4) 11/30/23 09:52 Immature Gran % (Auto) 0.1 % 11/30/23 09:52 Neut % (Auto) 91.6 % 11/30/23 09:52 Lymph % (Auto) 2.5 % 11/30/23 09:52 Butts % (Auto) 5.7 % 11/30/23 09:52 Eos % (Auto) 0.0 % 11/30/23 09:52 Baso % (Auto) 0.1 % 11/30/23 09:52 Neut # (Auto) 8.19 K/uL (1.40-6.50) H 11/30/23 09:52 Lymph # (Auto) 0.22 K/uL (1.20-3.40) L 11/30/23 09:52 Butts # (Auto) 0.51 K/uL (0.11-0.59) 11/30/23 09:52 Eos # (Auto) 0.00 K/uL (0.00-0.50) 11/30/23 09:52 Baso # (Auto) 0.01 K/uL (0.00-0.20) 11/30/23 09:52 Immature Gran # (Auto) 0.01 K/uL (0.01-0.20) 11/30/23 09:52 PT 11.3 Seconds (9.0-12.0) 11/30/23 13:03 INR 1.0 (0.9-1.1) 11/30/23 13:03 Sodium 133 mmol/L (136-145) L 11/30/23 09:52 Potassium 3.8 mmol/L (3.5-5.1) 11/30/23 11:10 Chloride 92 mmol/L (98-107) L 11/30/23 09:52 Carbon Dioxide 30 mmol/L (21-32) 11/30/23 09:52 Anion Gap 11 (3-11) 11/30/23 09:52 BUN 13 mg/dl (6-23) 11/30/23 09:52 Creatinine 0.86 mg/dl (0.6-1.4) 11/30/23 09:52 Est Cr Clr Drug Dosing 77.2 ml/min 11/30/23 09:52 Est GFR ( Amer) 94.9 ml/min 11/30/23 09:52 Est GFR (Non-Af Amer) 81.9 ml/min 11/30/23 09:52 BUN/Creatinine Ratio 15.1 (10-20) 11/30/23 09:52 Glucose 154 mg/dl (70-99(Fasting)) H 11/30/23 09:52 Lactate 2.0 mmol/L (0.4-2.0) 11/30/23 11:49 Calcium 11.1 mg/dl (8.6-10.3) H 11/30/23 09:52 Total Bilirubin 0.7 mg/dl (0.2-1.0) 11/30/23 09:52 AST 27 U/L (13-39) 11/30/23 11:10 ALT 13 U/L (7-52) 11/30/23 09:52 Alkaline Phosphatase 95 U/L (34-104) 11/30/23 09:52 Troponin I High Sens 9.9 pg/ml (0-20) 11/30/23 09:52 Total Protein 8.3 gm/dl (6.0-8.3) 11/30/23 09:52 Albumin 5.0 gm/dl (3.4-5.0) 11/30/23 09:52 Globulin 3.3 gm/dl (2.5-4.0) 11/30/23 09:52 Albumin/Globulin Ratio 1.5 (0.9-2) 11/30/23 09:52 Lipase 28 U/L (11-82) 11/30/23 09:52 Impressions Abdomen/Pelvis CT 11/30/23 09:18 CT SCAN OF THE ABDOMEN AND PELVIS WITH IV CONTRAST CLINICAL HISTORY: Nausea and vomiting. COMPARISON STUDY: Abdominal CT dated 09/03/2023. TECHNIQUE: Following the IV administration of 94 cc of Optiray 320, CT scan of the abdomen and pelvis is performed from the lung bases to the proximal femora. Images are reviewed in the axial, sagittal, and coronal planes. IV contrast was administered without complication. A dose lowering technique was utilized adhering to the principles of ALARA. CT DOSE: 1344.71 mGy.cm FINDINGS: Lung bases: The heart is enlarged and without pericardial effusion. The coronary arteries are densely calcified. The distal esophagus appears thick walled. There is a small hiatal hernia. A small fat-containing Bochdalek hernia is noted on the right. There is bibasilar scarring/atelectasis. No airspace consolidation typical for pneumonia or pleural effusion is identified. Liver: The contrast-enhanced liver is normal in size, contour, and attenuation. There is no intrahepatic biliary ductal dilatation. There are scattered calcified hepatic granulomas. The hepatic veins and portal veins are patent. A 14 mm left lobe cyst is incidentally noted. Gallbladder: There is a 1.7 cm calcified gallstone in the fundal region, with no CT evidence of acute cholecystitis. Spleen: Normal in size and attenuation. Pancreas: Moderately atrophic and grossly unremarkable. Adrenal glands: Unremarkable. Kidneys: The contrast enhanced kidneys demonstrate cortical atrophy and are without hydronephrosis. The kidneys enhance symmetrically. A 1.9 cm cyst is seen on the right. Additional scattered subcentimeter cortical hypodensities also likely represent cysts but are too small for definitive characterization. Cortical scarring is seen in the left upper pole. Abdominal vasculature: The abdominal aorta is normal in course and caliber noting moderate atherosclerotic calcification. Bowel: There is postoperative change involving the right colon with ileocolic anastomosis. The sigmoid colon is markedly redundant. The stomach and proximal small bowel loops are markedly dilated and fluid-filled measuring up to 4 cm diameter. Focal dilatation is seen at a small bowel anastomosis in the right mid abdomen. There is an incarcerated loop of small bowel within a right groin hernia as seen on axial image #306. The small bowel distal to the hernia in the colon are decompressed, and the hernia represents the site of obstruction. No pneumatosis intestinalis or portal venous gas is seen. There is interloop fluid. Peritoneum: There is a small volume of abdominopelvic ascites. No intraperitoneal free air is seen. A midline surgical scar is noted. Lymphadenopathy: None. Pelvic viscera: The prostate gland is enlarged and heterogeneous. The bladder wall is thickened/trabeculated indicating chronic outlet obstruction. There is a bowel and fluid containing right groin hernia. Skeletal structures: The skeletal structures are osteopenic. There is moderate to advanced cervical spondylosis. No lytic or blastic lesions are seen. IMPRESSION: 1. High-grade small bowel obstruction secondary to an incarcerated right groin hernia. 2. No intraperitoneal free air is identified and there is no pneumatosis intestinalis or portal venous gas. There is intraloop fluid and a small volume of ascites. 3. Postsurgical change is noted in the right colon. 4. Cardiomegaly noting advanced coronary artery atherosclerosis. 5. Cholelithiasis. 6. Additional findings as above. ACT 112: Negative or not required by law. Electronically signed by: Dashawn Rivera M.D. 11/30/2023 11:45 AM ECG Additional Comments: ECG. Sinus tachycardia rate of 106. No acute ST changes seen. QTc 409.
[2023-11-30] MEDS: SODIUM CHLORIDE 0.9% 500 ML IV SCH (21:01)
[2023-11-30] MEDS: TAMSULOSIN HCL 0.4 MG CAP PO SCH (21:44)
[2023-11-30] MEDS: ATORVASTATIN 10 MG TAB PO SCH (21:44)
[2023-11-30] MEDS: METOPROLOL TARTRATE 25 MG TAB PO SCH (21:44)
[2023-11-30] MEDS: ARTIFICIAL TEARS OP SCH (21:44)
[2023-11-30] MEDS: DOCUSATE SODIUM 100 MG CAP PO SCH (21:44)
[2023-12-01 05:12] LABS: Appearance Urine Cloudy (Clear); Bacteria Urine Automated None Seen (None Seen); Bilirubin Urine Negative (Negative); Blood Urine Negative (Negative); Cast Urine Automated 0-2 /lpf (0-2); Color Urine Yellow; Epithelial Cell Urine Auto 0-2 /hpf (0-2); Glucose Urine UA Negative (Negative); Ketones Urine Negative (Negative); Leukocyte Esterase Urine Negative (Negative); Nitrite Urine Negative (Negative); Protein Urine 1+ (Negative); Specific Gravity Urine > 1.045 (1.000-1.030); Urobilinogen Urine Negative (Negative); WBC Urine Automated 21-50 /hpf (0-5)
--- NOTE | 2023-12-01 07:12 | XRay Report ---
KUB HISTORY: SBO, NG tube COMPARISON: KUB 11/30/2023. FINDINGS: Tip of the nasogastric tube has been advanced and now resides at the gastroesophageal junct ion. No renal calculi. No ureteral calculi. No pneumoperitoneum or pneumatosis. Mild dilated loops o f bowel are partially visualized. IMPRESSION: 1. The tip of the nasogastric tube terminates at the gastroesophageal junction. This should be advanc ed by proximal a 5 to 10 cm. 2. Mildly dilated bowel loops are partially visualized. ACT 112: Negative or not required by law. Electronically signed by: Wilbur James M.D. 12/01/2023 7:10 AM
[2023-12-01 08:22] LABS: BUN Creatinine Ratio 19.4 (10-20); Calcium 8.3 mg/dl (8.6-10.3); Creatinine Clr Calc Pharmacy 99.2 ml/min; Est GFR (African American) 105.2 ml/min; Est GFR (Non-African American) 90.8 ml/min; Potassium 4.7 mmol/L (3.5-5.1)
--- NOTE | 2023-12-01 08:26 | XRay Report ---
KUB CLINICAL HISTORY: Enteric tube repositioning. FINDINGS: An AP, portable, upright view of the lower chest and upper abdomen is compared to abdominal radiographs and CT performed the same day 11/30/2023. An enteric tube is unchanged in position. The ti p projects at the level of the diaphragm, with the side holes above the diaphragm. Distended loops of bowel in the upper abdomen are consistent with known bowel obstruction. No intraperitoneal free air is seen below the diaphragm. The lung bases are clear as imaged. The heart is mildly enlarged. IMPRESSION: 1. The tip of the enteric tube terminates at the level of the diaphragm. This is unchanged from previ ous and should be advanced. 2. Persistent small bowel obstruction. Electronically signed by: Dashawn Rivera M.D. 12/01/2023 8:25 AM
[2023-12-01 08:58] LABS: Basophils # (auto) 0.01 K/uL (0.00-0.20); Basophils % (auto) 0.1 %; Eosinophils # (auto) 0.02 K/uL (0.00-0.50); Eosinophils % (auto) 0.3 %; Hemoglobin 11.7 g/dl (14.0-18.0); Immature Granulocytes # (auto) 0.02 K/uL (0.01-0.20); Immature Granulocytes % (auto) 0.3 %; Lymphocytes # (auto) 0.73 K/uL (1.20-3.40); Lymphocytes % (auto) 9.3 %; Mean Corpuscular Hgb Conc 31.6 g/dL (32.0-36.0); Mean Corpuscular Volume 85.3 fL (80.0-100.0); Mean Platelet Volume 10.4 fL (9.4-12.4); Monocytes # (auto) 0.51 K/uL (0.11-0.59); Monocytes % (auto) 6.5 %; Neutrophils # (auto) 6.54 K/uL (1.40-6.50); Neutrophils % (auto) 83.5 %; Platelet Count 145 K/uL (130-400); RDW Coefficient of Variation 15.5 % (11.5-14.5); RDW Standard Deviation 48.4 fL (36.4-46.3); Red Blood Count 4.34 M/uL (4.70-6.10); White Blood Count 7.83 K/ul (4.8-10.8)
--- NOTE | 2023-12-01 10:09 | Surgery Progress Note ---
Date of Service December 01, 2023 Assessment & Plan (1) SBO (small bowel obstruction): (2) Recurrent right inguinal hernia: Plan doing well pod 1 if kub looks ok will d/c ngt and start clears. Admission and Anticipated Discharge Date Admission Date: November 30, 2023 Subjective pt seen. feeling well. no complaints. Physical Exam Physical Exam: alert. nad abd: soft. nd. incisions look good. ngt with minimal output now. Results & Data Vital Signs (Past 12 Hours) Vital Signs Temp Pulse Resp BP Pulse Ox O2 Del Method O2 Flow Rate 12/01/23 07:00 36.3 C L 69 16 154/75 H 95 Room Air 12/01/23 02:40 36.5 C 71 16 130/80 96 Nasal Cannula 2 PG Care Time/CCT Total # of Minutes Spent Total Time Spent with Patient: Total time spent is greater than 50% in coordination of care (as documented) at patient's floor/unit and/or counseling patient: Coding Level of Care Code 02323 Post Operative Follow-Up Diagnoses SBO (small bowel obstruction) K56.609 Recurrent right inguinal hernia K40.91
--- NOTE | 2023-12-01 10:45 | XRay Report ---
KUB HISTORY: Small bowel obstruction. Follow-up. NG tube placement. COMPARISON: KUB 11/30/2023. FINDINGS: The tip of the nasogastric tube terminates at the gastroesophageal junction. This remains u nchanged. Dilated loops of bowel again noted within the upper abdomen consistent with the patient's k nown small bowel obstruction. Suture material within the right side of the abdomen. Contrast within t he bladder. Mild scoliosis and degenerative changes within the lumbar spine. No renal calculi. No ur eteral calculi. No pneumoperitoneum or pneumatosis. IMPRESSION: 1. The tip of the nasogastric tube is unchanged in position and terminates at the gastroesophageal ju nction. This should be advanced by approximately 5 to 10 cm. 2. No change in the mildly dilated loops of small bowel within the upper abdomen consistent with the patient's known small bowel obstruction. ACT 112: Negative or not required by law. Electronically signed by: Wilbur James M.D. 12/01/2023 10:44 AM
--- NOTE | 2023-12-01 11:17 | Hospitalist Progress Note ---
Date of Service December 01, 2023 Assessment & Plan (1) Recurrent right inguinal hernia: Plan: 78-year-old male coming from assisted with past medical history significant for hypertension, hyperlipidemia, BPH, GERD, chronic hyponatremia, right tonsillar cancer s/p surgery/radiation, past tobacco abuse, present with lower abdominal pain with nausea vomiting since yesterday afternoon and workup revealed incarcerated right inguinal hernia with bowel obstruction and patient is s/p laparoscopic right inguinal hernia repair with mesh, enterolysis and release of small bowel obstruction on 11/30/23. Recently was in hospital on August 2023 with volvulus of intestine at that time patient is s/p exploratory laparotomy with right colon resection on 09/01/2023. At that time post operative course complicated by GENE and postoperatively anemia. Patient hemoglobin dropped into 5 range. Was asymptomatic. Hematology was consulted. As patient is Zoroastrian. Was given IV iron. Also B12 folate vitamin C supplementation. And he also given erythropoietin.. Currently hemoglobin is stable. 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 Monitor. Hypertension HLD - continues home medication of amlodipine, metoprolol and lisinopril and Lasix - Cont statin BPH -on Flomax GERD - on omeprazole History of chronic hyponatremia - sodium 133 on admission, today 137 Chronic bilateral lower extremity edema - on Lasix - Mild pitting edema of feet bilaterally, left looks more swollen than right. History of right tonsillar cancer s/p surgery/radiation - chronic, stable DVT prophylaxis and disposition as per surgery Lines: PIV x 2, NGT Diet: NPO for now CODE: FULL Dispo: From [facility], likely to remain in the hospital x 1-2 more days Thank you for involving us in the care of Mr. Aceves. Please do not hesitate to call with questions or concerns. At this time medicine service will follow along. A total of 45 minutes were spent with greater than 50% of that time face to face with the patient, personally reviewing all current laboratories, imaging studies, past medication reconciliation, outpatient chart review, and discussion with specialists to collaborate care for the patient with attending. Please see attending documentation for corrections and/or additions. Admission and Anticipated Discharge Date Admission Date: November 30, 2023 Supervising Physician Co-Signing Physician Notes Patient seen and examined at bedside as a follow-up of medical management for status post laparoscopic right inguinal hernia repair with mesh, enterolysis and release of a small bowel obstruction on 11/30/2023. Patient has history of re current right inguinal hernia. Patient doing well postoperatively, NG tube in place, not connected to wall suction. Postoperative anemia noted, monitor H&H closely. Patient denies headache or dizziness or chest pain or palpitation. Continue other home medications as able. DVT prophylaxis and disposition as per primary. On examination: Patient on room air, NG tube in place, lap incision sites appears closed/healthy,no abdominal tenderness. Rest of the examination as above. I have seen and examined the patient and have discussed the case with the provider above. I agree with the assessment and plan as stated. Subjective Patient is seen and examined today, states that he is doing much improved compared to yesterday, status post inguinal hernia repair. Denies nausea, no vomiting today. He still has NG tube in place and is strict NPO. Denies any fever, chills or sweats, no abdominal distention, he has not yet moved any bowels or passed flatus. 10 point ROS is reviewed and otherwise negative Physical Exam Physical Exam: General: awake, alert, no apparent distress, elderly, -[place] male Head: Normocephalic, atraumatic ENT: PERRL, EOMI, no pharyngeal exudate, mucous membranes moist, NG tube in place with minimal output, brown/dark, in canister. Chest: Clear to auscultation, on 2L via NC, no adventitious breath sounds Cardiac: Regular rate and rhythm, no murmur, no JVD, normal peripheral pulses, good capillary refill Abdominal: Laparoscopic incision sites well closed, healing, NABS x 4 quadrants, soft, nondistended, nontender to palpation, no rebound or guarding Extremities: Normal inspection, no peripheral edema or erythema, calfs nontender to palpation Psych: Normal mood and affect Neuro: AAO x 3, strength intact bilaterally and rated 5/5, no motor deficits, speech is clear, no peripheral sensory deficits Results & Data Results & Data Vital Signs (Past 12 Hours) Vital Signs Temp Pulse Resp BP Pulse Ox O2 Del Method O2 Flow Rate 12/01/23 10:54 36.6 C 67 16 162/87 H 97 Nasal Cannula 2 12/01/23 07:00 36.3 C L 69 16 154/75 H 95 Room Air 12/01/23 02:40 36.5 C 71 16 130/80 96 Nasal Cannula 2
[2023-12-01] MEDS: amLODIPine BESYLATE 5 MG TAB PO SCH (11:29)
[2023-12-01] MEDS: CYANOCOBALAMIN (B-12) 500 MCG TABLET PO SCH (11:29)
[2023-12-01] MEDS: ASCORBIC ACID 500 MG TAB PO SCH (11:29)
[2023-12-01] MEDS: FUROSEMIDE 20 MG TAB PO SCH (11:30)
[2023-12-01] MEDS: FOLIC ACID 1 MG TAB PO SCH (11:30)
[2023-12-01] MEDS: lisinopril 20 MG TAB PO SCH (11:30)
[2023-12-01] MEDS: PANTOprazole 40 MG TAB PO SCH (11:32)
[2023-12-01] MEDS: PANTOprazole 40 MG in SYRINGE 0 ML IV SCH (12:21)
[2023-12-01] MEDS ORDERED: Nursing to Pharmacy Communication SCH (15:45)
[2023-12-02 08:21] LABS: Hematocrit (blood only) 41.6 % (42.0-52.0); Hemoglobin 13.3 g/dl (14.0-18.0); Mean Corpuscular Hemoglobin 27.3 pg (25.0-34.0); Mean Corpuscular Volume 85.4 fL (80.0-100.0); Mean Platelet Volume 10.5 fL (9.4-12.4); Platelet Count 149 K/uL (130-400); RDW Coefficient of Variation 15.1 % (11.5-14.5); RDW Standard Deviation 47.2 fL (36.4-46.3); Red Blood Count 4.87 M/uL (4.70-6.10); White Blood Count 4.35 K/ul (4.8-10.8)
[2023-12-02 08:41] LABS: BUN Creatinine Ratio 10.7 (10-20); Calcium 8.2 mg/dl (8.6-10.3); Creatinine Clr Calc Pharmacy 118.6 ml/min; Est GFR (African American) 113.2 ml/min; Est GFR (Non-African American) 97.7 ml/min
[2023-12-02] MEDS: CHLORASEPTIC (PHENOL) 1.4% SOLN 180 ML BTL MT PRN (11:27)
[2023-12-02] MEDS: COUGH DROP (SUGAR FREE) LOZ 24 LOZ/1 BOX BUCCAL STA (11:27)
--- NOTE | 2023-12-02 11:40 | Surgery Progress Note ---
Date of Service December 02, 2023 Assessment & Plan (1) Recurrent right inguinal hernia: Plan: POD 2 lap RIH repair tolerating clear liquids will advance to fulls + flatus encouraged ambulation VSS , Wbc wnl port sites CDI dermabond no s/s infection noted. as above. doing ok. no n/v. minimal pain. mitra full liquids awaiting bowel fx. will consider reg diet tomorrow. Admission and Anticipated Discharge Date Admission Date: November 30, 2023 Subjective pt reports mild abd discomfort +flatus no bm yet no n/v tolerating clears Review of Systems Respiratory: no dyspnea Cardiovascular: no chest pain Gastrointestinal: no abdominal pain, no nausea and no vomiting Physical Exam Constitutional: cooperative and comfortable; no acute distress Respiratory: normal respiratory effort and able to speak in complete sentences; no respiratory distress Cardiovascular: Rate/Rhythm: regular rate Gastrointestinal (Abdomen): Inspection/Auscultation: + abdominal surgical scar; abdomen not distended Percussion/Palpation: + abdomen tender and abdomen soft; no guarding Results & Data Vital Signs (Past 12 Hours) Vital Signs Temp Pulse Resp BP Pulse Ox O2 Del Method 12/02/23 10:19 Room Air 12/02/23 07:01 97.7 F 87 18 161/86 H 92 Room Air PG Care Time/CCT Total # of Minutes Spent Total Time Spent with Patient: Total time spent is greater than 50% in coordination of care (as documented) at patient's floor/unit and/or counseling patient: Coding Level of Care Code 56402 Post Operative Follow-Up Diagnoses Recurrent right inguinal hernia K40.91
--- NOTE | 2023-12-02 11:43 | Hospitalist Progress Note ---
Date of Service December 02, 2023 Assessment & Plan (1) Recurrent right inguinal hernia: Plan: 78-year-old male coming from residential with past medical history significant for hypertension, hyperlipidemia, BPH, GERD, chronic hyponatremia, right tonsillar cancer s/p surgery/radiation, past tobacco abuse, present with lower abdominal pain with nausea vomiting since yesterday afternoon and workup revealed incarcerated right inguinal hernia with bowel obstruction and patient is s/p laparoscopic right inguinal hernia repair with mesh, enterolysis and release of small bowel obstruction on 11/30/23. Recently was in hospital on August 2023 with volvulus of intestine at that time patient is s/p exploratory laparotomy with right colon resection on 09/01/2023. At that time post operative course complicated by GENE and postoperatively anemia. Patient hemoglobin dropped into 5 range. Was asymptomatic. Hematology was consulted. As patient is [employer]. Was given IV iron. Also B12 folate vitamin C supplementation. And he also given erythropoietin.. Currently hemoglobin is stable. 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 Monitor. - Stopped LR today with worsening dry cough - Noted upon NGT removal yesterday esophageal matter was pulled out with the tubing by nursing, pt has small amounts of blood when he coughs, admits to some irritation in throat - cough drop and Chloraseptic spray prn for pain. Hypertension HLD - continues home medication of amlodipine, metoprolol and lisinopril and Lasix - Cont statin BPH -on Flomax GERD - on omeprazole History of chronic hyponatremia - sodium 133 on admission, today 136 - Stop LR today with dry cough - added flutter therapy, encourage ambulation, continue incentive spirometry. - Consider CXR this afternoon Chronic bilateral lower extremity edema - on Lasix 20 mg daily , stopped fluids - Still has pitting edema of feet bilaterally, left looks more swollen than right. History of right tonsillar cancer s/p surgery/radiation - chronic, stable DVT prophylaxis and disposition as per surgery Lines: PIV x 2, NGT Diet: NPO for now CODE: FULL Dispo: From [facility], likely to remain in the hospital x 1-2 more days Thank you for involving us in the care of Mr. Aceves. Please do not hesitate to call with questions or concerns. At this time medicine service will follow along. A total of 45 minutes were spent with greater than 50% of that time face to face with the patient, personally reviewing all current laboratories, imaging studies, past medication reconciliation, outpatient chart review, and discussion with specialists to collaborate care for the patient with attending. Please see attending documentation for corrections and/or additions. Admission and Anticipated Discharge Date Admission Date: November 30, 2023 Supervising Physician Co-Signing Physician Notes Patient seen and examined at bedside as a follow-up of medical management for status post laparoscopic right inguinal hernia repair with mesh, enterolysis and release of a small bowel obstruction on 11/30/2023. Patient has history of recurrent right inguinal hernia. Patient doing well postoperatively, tolerating diet, NG tube was removed yesterday. Postoperative anemia noted, monitor H&H closely. Patient denies headache or dizziness or chest pain or palpitation. Continue other home medications as able. DVT prophylaxis and disposition as per primary. On examination: Patient on room air, NG tube in place, lap incision sites appears closed/healthy,no abdominal tenderness. Rest of the examination as above. I have seen and examined the patient and have discussed the case with the provider above. I agree with the assessment and plan as stated. Subjective Patient seen and examined this morning, states that he is doing well overall. Abdomen feels improved, no distention, passing gas, no bowel movement yet, tolerating diet without nausea/vomiting. Notes that he has a scratchy throat, some blood coughing up as whenever NG tube was removed yesterday scratched the back of his throat, brought small amounts of esophagus matter out with the tubing, he is agreeable to trying cough drops and some numbing spray today. He is tolerating food without difficulty. Patient mentions that cough which is dry, turn off IV fluids today, encourage patient to ambulate today, if any worsening shortness of breath will obtain CXR with patient's history of edema to rule out fluid congestion. 10 point ROS is reviewed and otherwise negative. Physical Exam Physical Exam: General: awake, alert, no apparent distress, elderly, -[place] male Head: Normocephalic, atraumatic ENT: PERRL, EOMI, no pharyngeal exudate, mucous membranes moist, NG tube out. Chest: Clear to auscultation, on 2L via NC, no adventitious breath sounds Cardiac: Regular rate and rhythm, no murmur, no JVD, normal peripheral pulses, good capillary refill Abdominal: Laparoscopic incision sites well closed, healing, NABS x 4 quadrants, soft, nondistended, nontender to palpation, no rebound or guarding Extremities: Normal inspection, + RLE and LLLE peripheral edema, right slightly more swollen than left, no erythema, calfs nontender to palpation Psych: Normal mood and affect Neuro: AAO x 3, strength intact bilaterally and rated 5/5, no motor deficits, speech is clear, no peripheral sensory deficits Results & Data Results & Data Vital Signs (Past 12 Hours) Vital Signs Temp Pulse Resp BP Pulse Ox O2 Del Method 12/02/23 10:19 Room Air 12/02/23 07:01 36.5 C 87 18 161/86 H 92 Room Air
[2023-12-02] MEDS: COUGH DROP (SUGAR FREE) LOZ 24 LOZ/1 BOX BUCCAL PRN (15:13)
--- NOTE | 2023-12-03 09:24 | Surgery Progress Note ---
Date of Service December 03, 2023 Assessment & Plan (1) H/O right inguinal hernia repair: Plan: pod 3 doing ok will try reg diet for lunch hopeful d/c tomorrow ambulate today Admission and Anticipated Discharge Date Admission Date: November 30, 2023 Subjective pt seen. no complaints. mitra full liquids. no bm yet Physical Exam Physical Exam: alert. nad abd: soft. incisions look good. Results & Data Vital Signs (Past 12 Hours) Vital Signs Temp Pulse Resp BP Pulse Ox O2 Del Method 12/03/23 09:03 Room Air 12/03/23 07:23 36.8 C 79 16 149/90 H 95 Room Air PG Care Time/CCT Total # of Minutes Spent Total Time Spent with Patient: Total time spent is greater than 50% in coordination of care (as documented) at patient's floor/unit and/or counseling patient: Coding Level of Care Code 53502 Post Operative Follow-Up Diagnoses H/O right inguinal hernia repair Z98.890; Z87.19
--- NOTE | 2023-12-03 15:41 | Hospitalist Progress Note ---
Date of Service December 03, 2023 Assessment & Plan (1) Recurrent right inguinal hernia: Plan: 78-year-old male coming from skilled nursing with past medical history significant for hypertension, hyperlipidemia, BPH, GERD, chronic hyponatremia, right tonsillar cancer s/p surgery/radiation, past tobacco abuse, present with lower abdominal pain with nausea vomiting since yesterday afternoon and workup revealed incarcerated right inguinal hernia with bowel obstruction and patient is s/p laparoscopic right inguinal hernia repair with mesh, enterolysis and release of small bowel obstruction on 11/30/23. Recently was in hospital on August 2023 with volvulus of intestine at that time patient is s/p exploratory laparotomy with right colon resection on 09/01/2023. At that time post operative course complicated by GENE and postoperatively anemia. Patient hemoglobin dropped into 5 range. Was asymptomatic. Hematology was consulted. As patient is [employer]. Was given IV iron. Also B12 folate vitamin C supplementation. And he also given erythropoietin.. Currently hemoglobin is stable. 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 Monitor. - tolerating diet, has not moved bowel. Hypertension HLD - continues home medication of amlodipine, metoprolol and lisinopril and Lasix - Cont statin BPH -on Flomax GERD - on omeprazole History of chronic hyponatremia - sodium 133 on admission, now stable. wnl. Chronic bilateral lower extremity edema - on Lasix 20 mg daily , continue - Still has pitting edema of feet bilaterally, left looks more swollen than right. History of right tonsillar cancer s/p surgery/radiation - chronic, stable DVT prophylaxis and disposition as per surgery Lines: PIV x 2, NGT Diet: NPO for now CODE: FULL Admission and Anticipated Discharge Date Admission Date: November 30, 2023 Subjective Patient was seen and examined at bedside. Patient was lying in bed, on room air, NAD, resting comfortably. Patient tolerating diet well, denies abdominal pain, reports feeling better, has not moved bowel, is moving gas. Physical Exam Physical Exam: General: awake, alert, no apparent distress, elderly, -[place] male Head: Normocephalic, atraumatic ENT: PERRL, EOMI, no pharyngeal exudate, mucous membranes moist. Chest: Clear to auscultation, on RA, no adventitious breath sounds Cardiac: Regular rate and rhythm, no murmur, no JVD, normal peripheral pulses, good capillary refill Abdominal: Laparoscopic incision sites well closed, healing, NABS x 4 quadrants, soft, nondistended, nontender to palpation, no rebound or guarding Extremities: Normal inspection, + RLE and LLLE peripheral edema, right slightly more swollen than left, no erythema, calfs nontender to palpation Psych: Normal mood and affect Neuro: AAO x 3, strength intact bilaterally and rated 5/5, no motor deficits, speech is clear, no peripheral sensory deficits Results & Data Results & Data Vital Signs (Past 12 Hours) Vital Signs Temp Pulse Resp BP Pulse Ox O2 Del Method 12/03/23 15:09 37.0 C 74 16 164/85 H 93 Room Air 12/03/23 09:03 Room Air 12/03/23 07:23 36.8 C 79 16 149/90 H 95 Room Air
[2023-12-04 07:08] LABS: Hematocrit (blood only) 38.4 % (42.0-52.0); Hemoglobin 12.6 g/dl (14.0-18.0); Mean Corpuscular Hemoglobin 27.5 pg (25.0-34.0); Mean Corpuscular Hgb Conc 32.8 g/dL (32.0-36.0); Mean Corpuscular Volume 83.8 fL (80.0-100.0); Mean Platelet Volume 9.6 fL (9.4-12.4); Platelet Count 158 K/uL (130-400); RDW Standard Deviation 45.8 fL (36.4-46.3); Red Blood Count 4.58 M/uL (4.70-6.10)
[2023-12-04 07:33] LABS: BUN Creatinine Ratio 17.8 (10-20); Est GFR (African American) 101.5 ml/min; Est GFR (Non-African American) 87.6 ml/min; Potassium 3.4 mmol/L (3.5-5.1)
[2023-12-04] MEDS: POTASSIUM CHLORIDE CRTAB 20 MEQ TABCR PO STA (08:44)
--- NOTE | 2023-12-04 09:49 | Surgery Progress Note ---
<Statement entered by Severino Sen DO - 12/04/23 13:54> I have seen and examined this patient with the surgical MIXER ATTENDANT. I agree with the plan Date of Service December 04, 2023 Assessment & Plan (1) H/O right inguinal hernia repair: Plan: pod 4 vss doing well , tolerating reg diet +flatus , Needs to have BM prior to D/c , ordered suppository ambulate today in halls with assist Admission and Anticipated Discharge Date Admission Date: November 30, 2023 Subjective denies abd pain, n/v , + flatus no bm Review of Systems Constitutional: no fever and no chills Respiratory: no dyspnea Cardiovascular: no chest pain Gastrointestinal: no abdominal pain, no nausea and no vomiting Physical Exam Constitutional: cooperative and comfortable; no acute distress Respiratory: normal respiratory effort and able to speak in complete sente nces; no respiratory distress Cardiovascular: Rate/Rhythm: regular rate Gastrointestinal (Abdomen): Inspection/Auscultation: + abdominal surgical scar and + abdominal surgical incision (dermabond CDI); abdomen not distended Percussion/Palpation: + abdomen tender and abdomen soft; no guarding Results & Data Vital Signs (Past 12 Hours) Vital Signs Temp Pulse Resp BP Pulse Ox O2 Del Method 12/04/23 07:13 97.9 F 73 16 133/76 95 Room Air 12/03/23 21:53 98.6 F 74 18 170/86 H 93 Room Air Results CBC w Diff Results: RBC 4.58 M/uL (4.70-6.10) L 12/04/23 WBC 4.30 K/ul (4.8-10.8) L 12/04/23 Hgb 12.6 g/dl (14.0-18.0) L 12/04/23 Hct 38.4 % (42.0-52.0) L 12/04/23 MCV 83.8 fL (80.0-100.0) 12/04/23 MCH 27.5 pg (25.0-34.0) 12/04/23 MCHC 32.8 g/dL (32.0-36.0) 12/04/23 RDW Standard Deviation 45.8 fL (36.4-46.3) 12/04/23 RDW Coefficient of Variation 15.0 % (11.5-14.5) H 12/04/23 Plt Count 158 K/uL (130-400) 12/04/23 MPV 9.6 fL (9.4-12.4) 12/04/23 Nucleated Red Blood Cells % (auto) 2.3 % 09/09 Nucleated RBC Absolute Count (auto) 0.20 K/uL (0.00-0.12) H 09/10/23 Neutrophils (%) (Auto) 83.5 % 12/01/23 Lymphocytes (%) (Auto) 9.3 % 12/01/23 Monocytes # (Auto) 0.51 K/uL (0.11-0.59) 12/01/23 Eosinophils # (Auto) 0.02 K/uL (0.00-0.50) 12/01/23 Immature Granulocyte % (Auto) 0.3 % 12/01/23 Neutrophils # (Auto) 6.54 K/uL (1.40-6.50) H 12/01/23 Lymphocytes # (Auto) 0.73 K/uL (1.20-3.40) L 12/01/23 Monocytes # (Auto) 0.51 K/uL (0.11-0.59) 12/01/23 Eosinophils # (Auto) 0.02 K/uL (0.00-0.50) 12/01/23 Basophils # (Auto) 0.01 K/uL (0.00-0.20) 12/01/23 Immature Granulocyte # (Auto) 0.02 K/uL (0.01-0.20) 4 Red Blood Cell Morphology Unremarkable 09/03/23 PG Care Time/CCT Total # of Minutes Spent Total Time Spent with Patient: Total time spent is greater than 50% in coordination of care (as documented) at patient's floor/unit and/or counseling patient: Coding Level of Care Code 63262 Post Operative Follow-Up Diagnoses H/O right inguinal hernia repair Z98.890; Z87.19
[2023-12-04] MEDS: bisacodyL 10 MG SUPP PR STA (10:05)
--- NOTE | 2023-12-04 15:18 | Hospitalist Progress Note ---
Date of Service December 04, 2023 Assessment & Plan (1) Recurrent right inguinal hernia: Plan: 78-year-old male coming from jail with past medical history significant for hypertension, hyperlipidemia, BPH, GERD, chronic hyponatremia, right tonsillar cancer s/p surgery/radiation, past tobacco abuse, present with lower abdominal pain with nausea vomiting since yesterday afternoon and workup revealed incarcerated right inguinal hernia with bowel obstruction and patient is s/p laparoscopic right inguinal hernia repair with mesh, enterolysis and release of small bowel obstruction on 11/30/23. Recently was in hospital on August 2023 with volvulus of intestine at that time patient is s/p exploratory laparotomy with right colon resection on 09/01/2023. At that time post operative course complicated by GENE and postoperatively anemia. Patient hemoglobin dropped into 5 range. Was asymptomatic. Hematology was consulted. As patient is [employer]. Was given IV iron. Also B12 folate vitamin C supplementation. And he also given erythropoietin.. Currently hemoglobin is stable. 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 Monitor. - tolerating diet, has not moved bowel. Moving gas, no abd pain. Hypertension HLD - continues home medication of amlodipine, metoprolol and lisinopril and Lasix - Cont statin BPH -on Flomax GERD - on omeprazole History of chronic hyponatremia - sodium 133 on admission, now stable. wnl. Chronic bilateral lower extremity edema - on Lasix 20 mg daily , continue - Still has pitting edema of feet bilaterally, left looks more swollen than right. History of right tonsillar cancer s/p surgery/radiation - chronic, stable DVT prophylaxis and disposition as per surgery Lines: PIV x 2, NGT Diet: NPO for now CODE: FULL Admission and Anticipated Discharge Date Admission Date: November 30, 2023 Subjective Patient was seen and examined at bedside. Patient was lying in bed, on room air, NAD, resting comfortably. Patient tolerating diet well, denies abdominal pain, reports feeling better, has not moved bowel, is moving gas. Physical Exam Physical Exam: General: awake, alert, no apparent distress, elderly, -[place] male Head: Normocephalic, atraumatic ENT: PERRL, EOMI, no pharyngeal exudate, mucous membranes moist. Chest: Clear to auscultation, on RA, no adventitious breath sounds Cardiac: Regular rate and rhythm, no murmur, no JVD, normal peripheral pulses, good capillary refill Abdominal: Laparoscopic incision sites well closed, healing, NABS x 4 quadrants, soft, nondistended, nontender to palpation, no rebound or guarding Extremities: Normal inspection, + RLE and LLLE peripheral edema, right slightly more swollen than left, no erythema, calfs nontender to palpation Psych: Normal mood and affect Neuro: AAO x 3, strength intact bilaterally and rated 5/5, no motor deficits, speech is clear, no peripheral sensory deficits Results & Data Results & Data Vital Signs (Past 12 Hours) Vital Signs Temp Pulse Resp BP Pulse Ox O2 Del Method 12/04/23 07:13 36.6 C 73 16 133/76 95 Room Air
[2023-12-05 06:07] LABS: BUN Creatinine Ratio 17.9 (10-20); Calcium 8.4 mg/dl (8.6-10.3); Creatinine Clr Calc Pharmacy 118.6 ml/min; Est GFR (African American) 113.2 ml/min; Est GFR (Non-African American) 97.7 ml/min; Magnesium 1.8 mg/dl (1.7-2.4); Potassium 3.8 mmol/L (3.5-5.1)
--- NOTE | 2023-12-05 10:34 | Surgery Progress Note ---
<Statement entered by Severino Sen DO - 12/05/23 16:19> I have seen and examined this patient with the surgical PA, I agree with this plan. Date of Service December 05, 2023 Assessment & Plan (1) H/O right inguinal hernia repair: Plan: pt is s/p laparoscopic r inguinal hernia repair with release of SBO he is tolerating a diet and having + bowel function pain controlled + voiding incisions c/d/i okay for dispo to [facility] today f/u in the office with dr. knight within 2 weeks Admission and Anticipated Discharge Date Admission Date: November 30, 2023 Subjective Pt reports feeling well. pain controlled. tolerating a diet. having + bowel function Physical Exam Physical Exam: awake, no distress Respiratory: normal respiratory effort Gastrointestinal (Abdomen): Inspection/Auscultation: + abdominal surgical incision (c/d/i dermabond) Percussion/Palpation: abdomen soft; abdomen nontender Results & Data Vital Signs (Past 12 Hours) Vital Signs Temp Pulse Pulse Resp BP Pulse Ox O2 Del Method 12/05/23 07:09 97.7 F 88 16 148/90 H 94 Room Air 12/05/23 02:48 60 20 90 12/05/23 01:14 62 15 92 PG Care Time/CCT Total # of Minutes Spent Total Time Spent with Patient: Total time spent is greater than 50% in coordination of care (as documented) at patient's floor/unit and/or counseling patient: Coding Level of Care Code 52891 Post Operative Follow-Up Diagnoses H/O right inguinal hernia repair Z98.890; Z87.19
--- NOTE | 2023-12-05 11:42 | Hospitalist Progress Note ---
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 Recently was in hospital on August 2023 with volvulus of intestine at that time patient is s/p exploratory laparotomy with right colon resection on 09/01/2023. At that time post operative course complicated by GENE and postoperatively anemia. Patient hemoglobin dropped into 5 range. Was asymptomatic. Hematology was consulted. As patient is [employer]. Was given IV iron. Also B12 folate vitamin C supplementation. And he also given erythropoietin.. Currently hemoglobin is stable. 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 Monitor. - tolerating diet, has moved bowel. Moving gas, no abd pain. Hypertension HLD - continues home medication of amlodipine, metoprolol and lisinopril and Lasix - Cont statin BPH -on Flomax GERD - on omeprazole History of chronic hyponatremia - sodium 133 on admission, now stable. wnl. Chronic bilateral lower extremity edema - on Lasix 20 mg daily , continue - Still has pitting edema of feet bilaterally, left looks more swollen than right. History of right tonsillar cancer s/p surgery/radiation - chronic, stable DVT prophylaxis and disposition as per surgery Lines: PIV x 2, NGT Diet: NPO for now CODE: FULL Admission and Anticipated Discharge Date Admission Date: November 30, 2023 Subjective Patient was seen and examined at bedside. Patient was lying in bed, on room air, NAD, resting comfortably. Patient tolerating diet well, denies abdominal pain, reports feeling better, has moved bowel, is moving gas. Physical Exam Physical Exam: General: awake, alert, no apparent distress, elderly, -[place] male Head: Normocephalic, atraumatic ENT: PERRL, EOMI, no pharyngeal exudate, mucous membranes moist. Chest: Clear to auscultation, on RA, no adventitious breath sounds Cardiac: Regular rate and rhythm, no murmur, no JVD, normal peripheral pulses, good capillary refill Abdominal: Laparoscopic incision sites well closed, healing, NABS x 4 quadrants, soft, nondistended, nontender to palpation, no rebound or guarding Extremities: Normal inspection, + RLE and LLLE peripheral edema, right slightly more swollen than left, no erythema, calfs nontender to palpation Psych: Normal mood and affect Neuro: AAO x 3, strength intact bilaterally and rated 5/5, no motor deficits, speech is clear, no peripheral sensory deficits Results & Data Results & Data Vital Signs (Past 12 Hours) Vital Signs Temp Pulse Pulse Resp BP Pulse Ox O2 Del Method 12/05/23 07:09 36.5 C 88 16 148/90 H 94 Room Air 12/05/23 02:48 60 20 90 12/05/23 01:14 62 15 92
== END 2023-12-05 12:29 | DRG 336 ==
LOC: ED 09:06 → OR 15:38 → 3W 17:02

== ENCOUNTER 2025-03-08 03:39 | Inpatient (IN) ==
--- NOTE | 2025-03-08 03:50 | Emergency Department Note ---
Impression & Plan SBO (small bowel obstruction) Admission ED Provider Note HPI: History obtained from patient. The patient is a 80-year-old gentleman who presents to the emergency department from [facility] over concern for abdominal pain. Patient states that for about the past 12 hours prior to arrival he has been developing worsening left-sided abdominal pain. Patient does have history of small bowel obstruction as well as right inguinal hernia repair. Patient states that he has had some nausea, on arrival here to the ED the patient is moderately hypertensive at 169/95, heart rate is slightly elevated at 107, patient is otherwise afebrile and saturating well on room air. ROS: - Per HPI Differential Diagnosis: Small bowel obstruction, diverticulitis flare, incarcerated hernia, acute colitis, viral gastroenteritis, acute appendicitis, kidney stone, amongst other potential pathologies. *Outpatient medications and allergy history reviewed. PE: General: Alert HEENT: Normocephalic, trachea midline Eyes: Extraocular eye movement is intact, no scleral erythema Pulmonary: Clear to auscultation bilaterally, no wheezing Cardio: Regular rate and rhythm GI: Abdomen is soft to palpation, moderate tenderness to the left side of the patient's abdomen with palpation without guarding or rigidity, there is a palpable midline hernia that is soft to palpation and easily reducible : No suprapubic tenderness MSK: No evidence of trauma or malformation of the extremities, no edema Skin: No evidence of rash Neuro: Alert, no focal deficits Psychiatric: Cooperative INDEPENDENT INTERPRETATIONS: media monitor: (As interpreted by myself): - An order was placed for continuous cardiac monitoring - Patient was noted to be in sinus rhythm with a rate of 80 EKG: (As interpreted by myself): Rate: 81 Rhythm: Sinus rhythm Intervals: Within normal limits ST changes: No ST elevation Time: 0358 Interventions provided in ED: - IV fluid bolus, IV morphine, IV Zofran Medical Decision Making: IV was established and lab work obtained, patient was placed on child monitor. Lab work shows no leukocytosis, hemoglobin is normal, platelet count is normal, CMP does not show any evidence of any critical findings, lactic acid is noted to be within normal limits. CT imaging of the abdomen pelvis was obtained and shows evidence of a small bowel obstruction, given the patient's extensive surgical history, I did discuss the patient's presentation with the on-call surgery physician loan officer assistant, Kim Rod, who is taking call for Dr. Rivers. Patient was evaluated at the bedside. At this point recommendation was made for admission to the medicine service for further management, n.p.o. status, and continuation of IV fluids. Patient was in agreement to this plan of the patient was placed for admission in stable condition. Patient's case was discussed with the on-call hospitalist, Dr. Tan. Patient was placed for admission to the service of Dr. Cottrell at the request of Dr. Tan given change of shift. Consultants/Discussions held with other healthcare providers: - General Surgery, Dr. Rivers - Hospitalist, Dr. Tan Disposition discussion held by myself with: - Patient and fci guards at the bedside Diagnosis: 1. Small bowel obstruction, acute 2. Abdominal pain, acute Disposition: Admission Tacos Anderson DO Emergency Medicine Past Med/Surg History Problem List (Updated 03/08/25 @ 06:43 by Tacos Anderson DO) Cardiomyopathy Abnormal stress test H/O right inguinal hernia repair (11/30/23) p Laparoscopic Right Inguinal Hernia Repair (recurrent) with Mesh, Enterolysis, Release small bowell obstruction(Right) - Randy Damon DO SBO (small bowel obstruction) (Acute) Recurrent right inguinal hernia Severe anemia Volvulus (Acute) Throat cancer High cholesterol High blood pressure Medical History Small bowel obstruction Volvulus of intestine Abdominal pain, acute Social History Smoking Status: Never smoker Hx Alcohol Use: No Hx Substance Use: No Preferred Language: Malay Communication Ability: Effective Clinical Cytogenetics Director Required: No Beliefs That Will Affect Care: None Current Living Situation: Other Current Living Situation Comment: [facility] Feels Safe at Home: Yes Assistive Devices: None Allergies Allergies Allergy/AdvReac Type Severity Reaction Status Date / Time No Known Allergies Allergy Verified 02/01/25 15:48 Home Meds Home Medications Medication Instructions Recorded Confirmed amlodipine 10 mg tablet 10 mg PO DAILY 11/30/23 02/01/25 artificial tears solution eye drops 1 drp ophthalmic (eye) TID 11/30/23 02/01/25 ascorbic acid (vitamin C) 500 mg 500 mg PO DAILY 11/30/23 02/01/25 tablet (Vitamin C) atorvastatin 10 mg tablet 10 mg PO HS 11/30/23 02/01/25 cyanocobalamin (vitamin B-12) 500 500 mcg PO DAILY 11/30/23 02/01/25 mcg tablet folic acid 1 mg tablet 1 mg PO DAILY 11/30/23 02/01/25 furosemide 20 mg tablet (Lasix) 20 mg PO DAILY 11/30/23 02/01/25 lisinopril 20 mg tablet 20 mg PO DAILY 11/30/23 02/01/25 metoprolol tartrate 25 mg tablet 12.5 mg PO BID 11/30/23 02/01/25 omeprazole 20 mg capsule,delayed 20 mg PO DAILY 11/30/23 02/01/25 release tamsulosin 0.4 mg capsule (Flomax) 0.4 mg PO HS 11/30/23 02/01/25 lidocaine 5 % topical ointment 1 applic topical DAILY PRN 02/01/25 02/01/25 multivitamin 1 tab PO DAILY 02/01/25 02/01/25 Results & Data (ED) Vital Signs Vital Signs - 24 hr 03/08/25 03:46 03/08/25 03:48 03/08/25 04:06 Temperature 36.6 C Temperature Source Oral Pulse Rate 107 H 85 Pulse Rate from SpO2 Sensor 81 Pulse Rhythm Regular Pulse Strength Normal Respiratory Rate 18 14 Respiratory Effort / Characteristics Non-Labored Spontaneous Respiratory Depth Normal Respiratory Pattern Regular Blood Pressure 169/95 H Blood Pressure Mean 119 Blood Pressure Position Sitting Pulse Oximetry 97 98 97 Oxygen Delivery Method Room Air Room Air Sepsis Recent Fever Within 48 Hours No Sepsis New/Unexplained Change in Mental Status No Sepsis Action Taken by Nursing No Action Required 03/08/25 04:27 03/08/25 04:30 03/08/25 04:39 Temperature Temperature Source Pulse Rate 80 87 85 Pulse Rate from SpO2 Sensor 78 88 82 Pulse Rhythm Pulse Strength Respiratory Rate 14 14 14 Respiratory Effort / Characteristics Respiratory Depth Respiratory Pattern Blood Pressure Blood Pressure Mean Blood Pressure Position Pulse Oximetry 97 97 97 Oxygen Delivery Method Sepsis Recent Fever Within 48 Hours Sepsis New/Unexplained Change in Mental Status Sepsis Action Taken by Nursing 03/08/25 05:06 03/08/25 05:30 03/08/25 06:00 Temperature Temperature Source Pulse Rate 89 Pulse Rate from SpO2 Sensor 88 Pulse Rhythm Pulse Strength Respiratory Rate 21 Respiratory Effort / Characteristics Respiratory Depth Respiratory Pattern Blood Pressure 166/100 H 127/79 153/116 H Blood Pressure Mean 112 98 128 Blood Pressure Position Pulse Oximetry 96 Oxygen Delivery Method Room Air Sepsis Recent Fever Within 48 Hours Sepsis New/Unexplained Change in Mental Status Sepsis Action Taken by Nursing 03/08/25 06:03 03/08/25 06:30 03/08/25 06:36 Temperature Temperature Source Pulse Rate 86 88 Pulse Rate from SpO2 Sensor 91 H Pulse Rhythm Pulse Strength Respiratory Rate 15 Respiratory Effort / Characteristics Respiratory Depth Respiratory Pattern Blood Pressure 135/84 Blood Pressure Mean 97 Blood Pressure Position Pulse Oximetry 96 Oxygen Delivery Method Room Air Sepsis Recent Fever Within 48 Hours Sepsis New/Unexplained Change in Mental Status Sepsis Action Taken by Nursing Laboratory Data 03/08/25 03:50 03/08/25 03:50 Lab Results 03/08/25 Range/Units 03:50 WBC 9.44 (4.8-10.8) K/ul RBC 4.93 (4.70-6.10) M/uL Hgb 14.2 (14.0-18.0) g/dl Hct 41.9 L (42.0-52.0) % MCV 85.0 (80.0-100.0) fL MCH 28.8 (25.0-34.0) pg MCHC 33.9 (32.0-36.0) g/dL RDW Std Deviation 41.9 (36.4-46.3) fL RDW Coeff of Shanelle 13.4 (11.5-14.5) % Plt Count 156 (130-400) K/uL MPV 9.1 L (9.4-12.4) fL Immature Gran % (Auto) 0.3 % Neut % (Auto) 88.2 % Lymph % (Auto) 3.4 % Grant % (Auto) 7.4 % Eos % (Auto) 0.5 % Baso % (Auto) 0.2 % Neut # (Auto) 8.32 H (1.40-6.50) K/uL Lymph # (Auto) 0.32 L (1.20-3.40) K/uL Grant # (Auto) 0.70 H (0.11-0.59) K/uL Eos # (Auto) 0.05 (0.00-0.50) K/uL Baso # (Auto) 0.02 (0.00-0.20) K/uL Immature Gran # (Auto) 0.03 (0.01-0.20) K/uL Sodium 132 L (136-145) mmol/L Potassium 4.4 (3.5-5.1) mmol/L Chloride 94 L (98-107) mmol/L Carbon Dioxide 33 H (21-32) mmol/L Anion Gap 5 (3-11) BUN 14 (6-23) mg/dl Creatinine 0.65 (0.6-1.4) mg/dl Est Cr Clr Drug Dosing 100.9 ml/min eGFR 94.08 BUN/Creatinine Ratio 21.5 H (10-20) Glucose 153 H (70-99(Fasting)) mg/dl Lactate 1.0 (0.4-2.0) mmol/L Calcium 10.7 H (8.6-10.3) mg/dl Total Bilirubin 0.9 (0.2-1.0) mg/dl AST 39 (13-39) U/L ALT 23 (7-52) U/L Alkaline Phosphatase 81 (34-104) U/L Total Protein 7.9 (6.0-8.3) gm/dl Albumin 4.8 (3.4-5.0) gm/dl Globulin 3.1 (2.5-4.0) gm/dl Albumin/Globulin Ratio 1.5 (0.9-2) Lipase 22 (11-82) U/L Administered Medications Discontinued Medications Sodium Chloride (Nss) 500 mls @ 999 mls/hr IV .Q31M STA Stop: 03/08/25 04:18 Last Infusion: 03/08/25 04:35 Dose: Infused Documented By: Admin: 03/08/25 04:00 Dose: 999 mls/hr Documented By: LEANNA Ioversol (Optiray 320 100ml) 94 ml IV ONCE ONE Stop: 03/08/25 04:58 Last Admin: 03/08/25 04:58 Dose: 94 ml Documented By: LOIDA Morphine Sulfate (Morphine Sulfate 4 Mg/Ml 1 Ml Carp\Vial) 4 mg IV NOW STA Stop: 03/08/25 03:49 Last Admin: 03/08/25 04:00 Dose: 4 mg Documented By: LEANNA Ondansetron HCl (Ondansetron Inj 2 Mg/Ml 2 Ml Vial) 4 mg IV NOW STA Stop: 03/08/25 03:49 Last Admin: 03/08/25 04:00 Dose: 4 mg Documented By: NAVIS Imaging Data Radiologist's Impression: Abdomen/Pelvis CT 03/08/25 04:32 EXAM: CT abd pelvis IV con only CLINICAL HISTORY: Left-sided abdominal pain, nausea TECHNIQUE: Contiguous axial images were obtained from the level of the diaphragm to the pubic symphysis with intravenous contrast. Coronal and sagittal reconstructions were likewise performed and indicated to increase the sensitivity for detecting clinically relevant pathology. If IV contrast material had not been administered, the likelihood of detecting abnormalities relevant to the patient's condition would have been substantially decreased. CT scan was performed according to ALARA (as low as reasonably achievable). 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 Open FINDINGS: A few atelectatic bands are noted involving the bilateral lung bases. The liver is normal in size and attenuation. No focal liver lesions are seen. There is no intrahepatic or extrahepatic biliary ductal dilatation. The hepatic vasculature is patent. The gallbladder shows a calculus of size 15 mm without cholecystitis. The spleen, pancreas, and adrenal glands are unremarkable. The kidneys are normal in size and attenuation. There is no hydronephrosis or perinephric fat stranding. No renal calculi or renal masses are identified. The ureters are normal in caliber and no ureteral calculi are seen. The bladder is normal in contour. Enlarged prostate measuring approximately 35 x 48 mm. The stomach is grossly distended. Multiple dilated small bowel loops are noted involving the mid and lower quadrants of the abdomen, measuring up to 7.3 cm, with transition seen at mid abdomen showing few collapsed small bowel loops with mildly thickened wall. Distal small bowel loops are collapsed. Post op changes are seen in small bowel loop in mid abdomen and in right lower quadrant. Fat-containing ventral hernia, which shows mild internal fat stranding. No imaging evidence of appendicitis. Abdominal and pelvic vasculature is patent. No adenopathy or fluid collections are seen. No aggressive-appearing osseous lesions are identified. Colonic fecal and gaseous distension. Diffuse atherosclerotic calcification is noted involving the aorta and iliac arteries. Degenerative changes involving the spine are seen in the form of multilevel marginal osteophytes, disc space reduction, and facetal arthrosis. IMPRESSION: 1. Uncomplicated cholelithiasis, stable. 2. The stomach is grossly distended, stable. 3. Multiple dilated small bowel loops are noted involving the mid and lower quadrants of the abdomen, measuring up to 7.3 cm, with transition seen at mid abdomen showing few collapsed small bowel loops with mildly thickened wall- possibility of stricture. Features suggestive of small bowel obstruction. New finding. 4. Post op changes are seen in small bowel loop in mid abdomen and in right lower quadrant- new finding. 5. Fat-containing ventral hernia, which shows mild internal fat stranding, new finding. 6. Colonic fecal and gaseous distension. Electronically signed by Ketnon Bush 03-08-2025 06:05 AM Discharge Plan Visit Data Chief Complaint: Abdominal Pain Stated Complaint: Abdominal Pain ED Provider: Tacos Anderson Discharge Problem: SBO (small bowel obstruction) Patient Disposition: Admitted As Inpatient Condition: Fair Forms Stand Alone Forms: [facility] Prescriptions Prescriptions: No Action multivitamin Tablet 1 tab PO DAILY lidocaine 5 % ointment 1 applic topical DAILY PRN atorvastatin 10 mg Tablet 10 mg PO HS lisinopril 20 mg Tablet 20 mg PO DAILY artificial tears solution Drops 1 drp OPHTHALMIC (EYE) TID cyanocobalamin (vitamin B-12) 500 mcg Tablet 500 mcg PO DAILY ascorbic acid (vitamin C) [Vitamin C] 500 mg Tablet 500 mg PO DAILY tamsulosin [Flomax] 0.4 mg Capsule 0.4 mg PO HS amlodipine 10 mg Tablet 10 mg PO DAILY omeprazole 20 mg Capsule,Delayed Release(Dr/Ec) 20 mg PO DAILY folic acid 1 mg Tablet 1 mg PO DAILY furosemide [Lasix] 20 mg Tablet 20 mg PO DAILY metoprolol tartrate 25 mg Tablet 12.5 mg PO BID Referrals Referrals: Sachi RUBY [Primary Care Provider] -
[2025-03-08] MEDS: SODIUM CHLORIDE 0.9% 500 ML IV STA (04:00)
[2025-03-08] MEDS: ONDANSETRON INJ 2 MG/ML 2 ML VIAL IV STA (04:00)
[2025-03-08] MEDS: MoRPHine SULFATE 4 MG/ML 1 ML CARP\\VIAL IV STA (04:00)
[2025-03-08 04:10] LABS: Hematocrit (blood only) 41.9 % (42.0-52.0); Hemoglobin 14.2 g/dl (14.0-18.0); Immature Granulocytes # (auto) 0.03 K/uL (0.01-0.20); Immature Granulocytes % (auto) 0.3 %; Mean Corpuscular Hemoglobin 28.8 pg (25.0-34.0); Mean Corpuscular Volume 85.0 fL (80.0-100.0); Platelet Count 156 K/uL (130-400); RDW Standard Deviation 41.9 fL (36.4-46.3); Red Blood Count 4.93 M/uL (4.70-6.10); White Blood Count 9.44 K/ul (4.8-10.8)
[2025-03-08 04:28] LABS: Alanine Aminotransferase 23.0 U/L (7-52); Albumin Globulin Ratio 1.5 (0.9-2); Albumin Level 4.8 gm/dl (3.4-5.0); Alkaline Phosphatase 81.0 U/L (34-104); Anion Gap 5.0 (3-11); Bilirubin,Total 0.9 mg/dl (0.2-1.0); Blood Urea Nitrogen 14.0 mg/dl (6-23); Calcium 10.7 mg/dl (8.6-10.3); Carbon Dioxide 33.0 mmol/L (21-32); Chloride 94.0 mmol/L (98-107); Creatinine Clr Calc Pharmacy 100.9 ml/min; Globulin 3.1 gm/dl (2.5-4.0); Glucose 153.0 mg/dl (70-99(Fasting)); Lipase 22.0 U/L (11-82); Potassium 4.4 mmol/L (3.5-5.1); Sodium 132.0 mmol/L (136-145); Total Protein 7.9 gm/dl (6.0-8.3)
[2025-03-08] MEDS: OPTIRAY 320 100ml IV ONE (04:58)
--- NOTE | 2025-03-08 05:49 | Surgery Consultation ---
Date of Consultation March 08, 2025 Assessment & Plan (1) SBO (small bowel obstruction): The patient is an 80-year-old male who presents from local correctional facility with complaints of abdominal pain that started roughly 2 days ago that has worsened last evening and he started with associated nausea and vomiting last evening started with associated nausea and vomiting. He was seen by the medical team at the halfway and was given a stool softener yesterday and states that he was able to have a small bowel movement, however has not had anything since and is not passing gas. 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 Damon. He was worked up in the emergency department and CT findings were concerning for small bowel obstruction with transition at the mid abdomen. Patient was seen and evaluated emergency department and from a surgical perspective recommend the following: - Patient with no signs of acute abdomen that would warrant emergent surgical intervention at this time. Will plan to treat conservatively for now - Keep n.p.o., IV hydration, antiemetics and pain control as needed. - NG tube to be placed, leave to suction for now for bowel decompression -Patient also noted to have a new ventral hernia on CT imaging, hernia is soft and reducible on exam . - Medical management per primary team, surgery will follow Supervising Physician Co-Signing Physician Notes Conservative management No plans for any exploration N.p.o. History of Present Illness Reason for Consultation: SBO History of Present Illness The patient is an 80-year-old male who presents from local correctional facility with complaints of abdominal pain. Patient states that the pain started roughly 2 days ago, however within the last 12 hours the pain has worsened and last evening started with associated nausea and vomiting. He was seen by the medical team yesterday afternoon at the halfway and was given a stool softener and states that he did have a very small bowel movement afterwards however his symptoms persisted which prompted him to be brought into the emergency department. 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 Damon. The patient was ultimately worked up in the emergency department this morning and was found to have CT findings concerning for a small bowel obstruction with transition in the mid abdomen. CT also noting a fat-containing ventral hernia which is a new finding compared to previous imaging. Due to these findings, general surgery was consulted for further evaluation. The patient was seen and evaluated early this morning at bedside the emergency department. He is resting comfortably in bed, vital signs stable, and he is nontoxic-appearing. Patient does have a small ventral hernia on exam to the left of his midline incision that is easily reducible and nontender. Otherwise his abdomen is soft and minimally tender throughout. Allergies Allergy/AdvReac Type Severity Reaction Status Date / Time No Known Allergies Allergy Verified 02/01/25 15:48 Home Medications Medication Instructions Recorded Confirmed Type amlodipine 10 mg tablet 10 mg PO DAILY 11/30/23 03/08/25 History artificial tears solution eye drops 1 drp ophthalmic (eye) TID 11/30/23 03/08/25 History ascorbic acid (vitamin C) 500 mg 500 mg PO DAILY 11/30/23 03/08/25 History tablet (Vitamin C) atorvastatin 10 mg tablet 10 mg PO HS 11/30/23 03/08/25 History cyanocobalamin (vitamin B-12) 500 500 mcg PO DAILY 11/30/23 03/08/25 History mcg tablet folic acid 1 mg tablet 1 mg PO DAILY 11/30/23 03/08/25 History furosemide 20 mg tablet (Lasix) 20 mg PO DAILY 11/30/23 03/08/25 History lisinopril 20 mg tablet 20 mg PO DAILY 11/30/23 03/08/25 History metoprolol tartrate 25 mg tablet 12.5 mg PO BID 11/30/23 03/08/25 History omeprazole 20 mg capsule,delayed 20 mg PO DAILY 11/30/23 03/08/25 History release tamsulosin 0.4 mg capsule (Flomax) 0.4 mg PO HS 11/30/23 03/08/25 History lidocaine 5 % topical ointment 1 applic topical DAILY PRN Unknown 02/01/25 03/08/25 History multivitamin 1 tab PO DAILY 02/01/25 03/08/25 History docusate sodium 100 mg capsule 100 mg PO BID PRN Constipation 03/08/25 03/08/25 History docusate sodium 100 mg capsule 100 mg PO DAILY 03/08/25 03/08/25 History multivitamin-minerals 1 tab PO DAILY 03/08/25 03/08/25 History no.36-iron,carbonyl-FA 16 mg iron-0.38 mg tablet (Geritol Complete) polyethylene glycol 3350 17 17 g PO DAILY 03/08/25 03/08/25 History gram/dose oral powder (Miralax) saliva substitute combo no.9 1 ea PO QID 03/08/25 03/08/25 History (Biotene Dry Mouth Oral Rinse mouthwash) Patient History Medical History Small bowel obstruction Volvulus of intestine Abdominal pain, acute Social History Smoking Status: Never smoker Hx Alcohol Use: No Hx Substance Use: No Preferred Language: Kenyan Communication Ability: Effective Lead Esthetician Required: No Beliefs That Will Affect Care: None Current Living Situation: Other Current Living Situation Comment: [facility] Feels Safe at Home: Yes Assistive Devices: None Review of Systems Constitutional: no fever, no chills and no weakness Respiratory: no cough, no chest congestion and no dyspnea Cardiovascular: no chest pain, no palpitations and no syncope Gastrointestinal: + abdominal pain, + nausea and + vomitin g Genitourinary: no difficulty urinating or no hematuria Physical Exam Constitutional: WD/WN, vitals as above Respiratory: normal respiratory effort, lungs clear to auscultation Cardiovascular: Rate/Rhythm: regular rate Gastrointestinal (Abdomen): Abdomen soft, minimally distended, mild TTP throughout without any rebound or guarding. No signs of peritonitis +Midline incision appreciated, small erick tral hernia just left of the incision site that is reducible and soft Skin: no rashes, warm and dry Results & Data Vital Signs (Past 12 Hours) Vital Signs Temp Pulse Resp BP Pulse Ox O2 Del Method 03/08/25 05:30 127/79 03/08/25 05:06 166/100 H 03/08/25 04:39 85 14 97 03/08/25 04:30 87 14 97 03/08/25 04:27 80 14 97 03/08/25 04:06 85 14 97 03/08/25 03:48 98 Room Air 03/08/25 03:46 36.6 C 107 H 18 169/95 H 97 Room Air Diagnostic Findings EXAM: CT abd pelvis IV con only CLINICAL HISTORY: Left-sided abdominal pain, nausea TECHNIQUE: Contiguous axial images were obtained from the level of the diaphragm to the pubic symphysis with intravenous contrast. Coronal and sagittal reconstructions were likewise performed and indicated to increase the sensitivity for detecting clinically relevant pathology. If IV contrast material had not been administered, the likelihood of detecting abnormalities relevant to the patient's condition would have been substantially decreased. CT scan was performed according to ALARA (as low as reasonably achievable). 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 Open FINDINGS: A few atelectatic bands are noted involving the bilateral lung bases. The liver is normal in size and attenuation. No focal liver lesions are seen. There is no intrahepatic or extrahepatic biliary ductal dilatation. The hepatic vasculature is patent. The gallbladder shows a calculus of size 15 mm without cholecystitis. The spleen, pancreas, and adrenal glands are unremarkable. The kidneys are normal in size and attenuation. There is no hydronephrosis or perinephric fat stranding. No renal calculi or renal masses are identified. The ureters are normal in caliber and no ureteral calculi are seen. The bladder is normal in contour. Enlarged prostate measuring approximately 35 x 48 mm. The stomach is grossly distended. Multiple dilated small bowel loops are noted involving the mid and lower quadrants of the abdomen, measuring up to 7.3 cm, with transition seen at mid abdomen showing few collapsed small bowel loops with mildly thickened wall. Distal small bowel loops are collapsed. Post op changes are seen in small bowel loop in mid abdomen and in right lower quadrant. Fat-containing ventral hernia, which shows mild internal fat stranding. No imaging evidence of appendicitis. Abdominal and pelvic vasculature is patent. No adenopathy or fluid collections are seen. No aggressive-appearing osseous lesions are identified. Colonic fecal and gaseous distension. Diffuse atherosclerotic calcification is noted involving the aorta and iliac arteries. Degenerative changes involving the spine are seen in the form of multilevel marginal osteophytes, disc space reduction, and facetal arthrosis. IMPRESSION: 1. Uncomplicated cholelithiasis, stable. 2. The stomach is grossly distended, stable. 3. Multiple dilated small bowel loops are noted involving the mid and lower quadrants of the abdomen, measuring up to 7.3 cm, with transition seen at mid abdomen showing few collapsed small bowel loops with mildly thickened wall- possibility of stricture. Features suggestive of small bowel obstruction. New finding. 4. Post op changes are seen in small bowel loop in mid abdomen and in right lower quadrant- new finding. 5. Fat-containing ventral hernia, which shows mild internal fat stranding, new finding. 6. Colonic fecal and gaseous distension. PG Care Time/CCT Total # of Minutes Spent Total Time Spent with Patient: Total time spent is greater than 50% in coordination of care (as documented) at patient's floor/unit and/or counseling patient: [place] [address] INT INP/OBS CARE 1/40MIN Patient Type Established Medical Decision Making Straight Forward Diagnoses SBO (small bowel obstruction) K56.609
--- NOTE | 2025-03-08 06:05 | CT Scan Report ---
EXAM: CT abd pelvis IV con only CLINICAL HISTORY: Left-sided abdominal pain, nausea TECHNIQUE: Contiguous axial images were obtained from the level of the diaphragm to the pubic symphysis with intravenous contrast. Coronal and sagittal reconstructions were likewise performed and indicated to increase the sensitivity for detecting clinically relevant pathology. If IV contrast material had not been administered, the likelihood of detecting abnormalities relevant to the patient's condition would have been substantially decreased. CT scan was performed according to ALARA (as low as reasonably achievable). COMPARISON: 10:12:07 [facility] Open FINDINGS: A few atelectatic bands are noted involving the bilateral lung bases. The liver is normal in size and attenuation. No focal liver lesions are seen. There is no intrahepatic or extrahepatic biliary ductal dilatation. The hepatic vasculature is patent. The gallbladder shows a calculus of size 15 mm without cholecystitis. The spleen, pancreas, and adrenal glands are unremarkable. The kidneys are normal in size and attenuation. There is no hydronephrosis or perinephric fat stranding. No renal calculi or renal masses are identified. The ureters are normal in caliber and no ureteral calculi are seen. The bladder is normal in contour. Enlarged prostate measuring approximately 35 x 48 mm. The stomach is grossly distended. Multiple dilated small bowel loops are noted involving the mid and lower quadrants of the abdomen, measuring up to 7.3 cm, with transition seen at mid abdomen showing few collapsed small bowel loops with mildly thickened wall. Distal small bowel loops are collapsed. Post op changes are seen in small bowel loop in mid abdomen and in right lower quadrant. Fat-containing ventral hernia, which shows mild internal fat stranding. No imaging evidence of appendicitis. Abdominal and pelvic vasculature is patent. No adenopathy or fluid collections are seen. No aggressive-appearing osseous lesions are identified. Colonic fecal and gaseous distension. Diffuse atherosclerotic calcification is noted involving the aorta and iliac arteries. Degenerative changes involving the spine are seen in the form of multilevel marginal osteophytes, disc space reduction, and facetal arthrosis. IMPRESSION: 1. Uncomplicated cholelithiasis, stable. 2. The stomach is grossly distended, stable. 3. Multiple dilated small bowel loops are noted involving the mid and lower quadrants of the abdomen, measuring up to 7.3 cm, with transition seen at mid abdomen showing few collapsed small bowel loops with mildly thickened wall- possibility of stricture. Features suggestive of small bowel obstruction. New finding. 4. Post op changes are seen in small bowel loop in mid abdomen and in right lower quadrant- new finding. 5. Fat-containing ventral hernia, which shows mild internal fat stranding, new finding. 6. Colonic fecal and gaseous distension. Electronically signed by Kenton Bush 03-08-2025 06:05 AM
--- NOTE | 2025-03-08 11:07 | History & Physical Report ---
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 CTAP: The stomach is grossly distended. Multiple dilated small bowel loops are noted involving the mid and lower quadrants of the abdomen, measuring up to 7.3 cm, with transition seen at mid abdomen showing few collapsed small bowel loops with mildly thickened wall. Distal small bowel loops are collapsed. Fat- containing ventral hernia, which shows mild internal fat stranding, new finding. Colonic fecal and gaseous distension. Small bowel obstruction Fat-containing ventral hernia (new finding) Labs personally reviewed and grossly unremarkable when compared to prior. CTAP as per above. Appreciate general surgery consult. -No acute surgical intervention warranted at this time. -Conservative management for now with NPO status, MIVF, NGT placement on low intermittent suction, PRN IV antiemetics/analgesia. Also found to have new ventral hernia on CTAP which is soft and reducible on exam. History of cardiomyopathy History of reduced EF on recent nuclear stress test per most recent visit with Dr. Barth last month. Has not yet had cardiac catheterization completed -- unclear when this is scheduled for. Recommendation was to obtain TTE on the same day as the catheterization. Patient with 2+ BLE pitting edema on exam. Patient reports this is chronic for him, on Lasix 20 mg p.o. daily which he notes compliance with. Given this, however, we will obtain BNP and TTE. S/p 1L NSS in ED. Will cautiously only do MIVF at 60 cc/hour x 1 more bag for now. No current cardiopulmonary complaints. 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 HTN Mildly hypertensive in ED. Did not take home antihypertensives yet today, will give lisinopril and Norvasc now. Pain could also be contributing as well. Continue BB this evening. Routine BP monitoring, adjust regimen PRN. Chronic hyponatremia Na appears to be around baseline when compared to prior, continue to monitor. Other chronic medical conditions: GERD - Continue PPI. BPH - Continue Flomax. HLD - Continue statin. 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 DVT Prophylaxis: SCDs/TEDs only for now Code Status: FULL CODE - Per direct discussion with the patient. PCP: TUNG Karimi Disposition: Admit to med/telemetry Patient seen in collaboration with Dr. Cottrell. Please see addendum. I spent a total of 62 minutes coordinating, documenting, and providing care for this patient excluding time spent in the performance of separately billed services or time spent by another provider/QHP. This included personally reviewing all current laboratories and imaging studies, medical reconciliation, outpatient chart review and discussion with specialists. This chart was completed in part utilizing Speech Voice Recognition Software. Grammatical errors, random word insertions, pronoun errors, and incomplete sentences are an occasional consequence of this system due to software limitations, ambient noise, and hardware issues. Any formal questions or concerns about the content, text, or information contained within the body of this dictation should be directly addressed to the provider for clarification. 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 History obtained from the patient and associated chart review. Started with abdominal pain roughly 2 days ago. Generalized in characteristic, mostly crampy. Progressively worsened. Developed N/V last evening. Reportedly was given a stool softener by [facility] staff yesterday afternoon and had a very small BM but his symptoms still worsened. Passing flatus. Denies any SOB or chest pain. Ultimately found to have a small bowel obstruction on CTAP in the ED and is being admitted for further management of this. Allergies Allergy/AdvReac Type Severity Reaction Status Date / Time No Known Allergies Allergy Verified 02/01/25 15:48 Home Medications Medication Instructions Recorded Confirmed Type amlodipine 10 mg tablet 10 mg PO DAILY 11/30/23 03/08/25 History artificial tears solution eye drops 1 drp ophthalmic (eye) TID 11/30/23 03/08/25 History ascorbic acid (vitamin C) 500 mg 500 mg PO DAILY 11/30/23 03/08/25 History tablet (Vitamin C) atorvastatin 10 mg tablet 10 mg PO HS 11/30/23 03/08/25 History cyanocobalamin (vitamin B-12) 500 500 mcg PO DAILY 11/30/23 03/08/25 History mcg tablet folic acid 1 mg tablet 1 mg PO DAILY 11/30/23 03/08/25 History furosemide 20 mg tablet (Lasix) 20 mg PO DAILY 11/30/23 03/08/25 History lisinopril 20 mg tablet 20 mg PO DAILY 11/30/23 03/08/25 History metoprolol tartrate 25 mg tablet 12.5 mg PO BID 11/30/23 03/08/25 History omeprazole 20 mg capsule,delayed 20 mg PO DAILY 11/30/23 03/08/25 History release tamsulosin 0.4 mg capsule (Flomax) 0.4 mg PO HS 11/30/23 03/08/25 History lidocaine 5 % topical ointment 1 applic topical DAILY PRN Unknown 02/01/25 03/08/25 History multivitamin 1 tab PO DAILY 02/01/25 03/08/25 History docusate sodium 100 mg capsule 100 mg PO BID PRN Constipation 03/08/25 03/08/25 History docusate sodium 100 mg capsule 100 mg PO DAILY 03/08/25 03/08/25 History multivitamin-minerals 1 tab PO DAILY 03/08/25 03/08/25 History no.36-iron,carbonyl-FA 16 mg iron-0.38 mg tablet (Geritol Complete) polyethylene glycol 3350 17 17 g PO DAILY 03/08/25 03/08/25 History gram/dose oral powder (Miralax) saliva substitute combo no.9 1 ea PO QID 03/08/25 03/08/25 History (Biotene Dry Mouth Oral Rinse mouthwash) Past Med/Surg History Problem List (Updated 03/08/25 @ 15:35 by Ruth Little PA-C) Ventral hernia Cardiomyopathy Abnormal stress test H/O right inguinal hernia repair (11/30/23) p Laparoscopic Right Inguinal Hernia Repair (recurrent) with Mesh, Enterolysis, Release small bowell obstruction(Right) - Randy Damon, SBO (small bowel obstruction) (Acute) Recurrent right inguinal hernia Severe anemia Volvulus (Acute) Throat cancer High cholesterol High blood pressure Medical History Small bowel obstruction Volvulus of intestine Abdominal pain, acute Social History Smoking Status: Never smoker Tobacco Type: Cigarettes Second Hand Exposure: No; Do You Dip or Chew Tobacco: No; Hx Alcohol Use: No Hx Substance Use: No Preferred Language: Sinhala Communication Ability: Effective Heat Treat Technician Required: No Beliefs That Will Affect Care: Evangelical Evangelical Beliefs: Jehovah Witness Current Living Situation: Other Current Living Situation Comment: [facility] Feels Safe at Home: Yes Assistive Devices: None Review of Systems Review of Systems: At least ten systems reviewed and negative, except as noted in the HPI. Physical Exam Physical Exam: General: Elderly M, laying down in bed, NAD, A&Ox3, correctional officers at bedside HEENT: Normocephalic, atraumatic, external ear and nose normal, somewhat dry mucous membranes Respiratory: Normal respiratory effort, CTAB, on RA Cardiovascular: RRR, + murmur, normal peripheral pulses, 2+ BLE pitting edema Abdomen/GI: Somewhat hypoactive bowel sounds, mildly distended but soft, + healed midline ex lap incision appreciated, mild TTP throughout without rebound or guarding Extremities/Musculoskeletal: No cyanosis or clubbing, extremities motor strength intact, moves all extremities, BLE SCDs in place, + cuff on R ankle Neurologic: No overt focal deficits, CN's II-XI not formally tested but appear grossly intact bilaterally Results & Data Results & Data Vital Signs (Past 12 Hours) Vital Signs Temp Pulse Pulse Resp BP BP Pulse Ox 03/08/25 10:30 78 03/08/25 09:00 73 18 114/59 L 95 03/08/25 07:34 84 18 132/88 97 03/08/25 06:36 88 15 96 03/08/25 06:30 135/84 03/08/25 06:03 86 03/08/25 06:00 89 21 153/116 H 96 03/08/25 05:30 127/79 03/08/25 05:06 166/100 H 03/08/25 04:39 85 14 97 03/08/25 04:30 87 14 97 03/08/25 04:27 80 14 97 03/08/25 04:06 85 14 97 03/08/25 03:48 98 03/08/25 03:46 36.6 C 107 H 18 169/95 H 97 O2 Del Method 03/08/25 10:30 03/08/25 09:00 Room Air 03/08/25 07:34 Room Air 03/08/25 06:36 Room Air 03/08/25 06:30 03/08/25 06:03 03/08/25 06:00 Room Air 03/08/25 05:30 03/08/25 05:06 03/08/25 04:39 03/08/25 04:30 03/08/25 04:27 03/08/25 04:06 03/08/25 03:48 Room Air 03/08/25 03:46 Room Air Laboratory Results Short CBC 03/08/25 Range/Units 03:50 WBC 9.44 (4.8-10.8) K/ul Hgb 14.2 (14.0-18.0) g/dl Hct 41.9 L (42.0-52.0) % Plt Count 156 (130-400) K/uL BMP 03/08/25 03:50 Sodium 132 L Potassium 4.4 Chloride 94 L Carbon Dioxide 33 H BUN 14 Creatinine 0.65 Glucose 153 H Calcium 10.7 H Liver Function 03/08/25 Range/Units 03:50 Total Bilirubin 0.9 (0.2-1.0) mg/dl AST 39 (13-39) U/L ALT 23 (7-52) U/L Alkaline Phosphatase 81 (34-104) U/L Albumin 4.8 (3.4-5.0) gm/dl Diagnostic Findings Abdomen/Pelvis CT 03/08/25 04:32 EXAM: CT abd pelvis IV con only CLINICAL HISTORY: Left-sided abdominal pain, nausea TECHNIQUE: Contiguous axial images were obtained from the level of the diaphragm to the pubic symphysis with intravenous contrast. Coronal and sagittal reconstructions were likewise performed and indicated to increase the sensitivity for detecting clinically relevant pathology. If IV contrast material had not been administered, the likelihood of detecting abnormalities relevant to the patient's condition would have been substantially decreased. CT scan was performed according to ALARA (as low as reasonably achievable). 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 Open FINDINGS: A few atelectatic bands are noted involving the bilateral lung bases. The liver is normal in size and attenuation. No focal liver lesions are seen. There is no intrahepatic or extrahepatic biliary ductal dilatation. The hepatic vasculature is patent. The gallbladder shows a calculus of size 15 mm without cholecystitis. The spleen, pancreas, and adrenal glands are unremarkable. The kidneys are normal in size and attenuation. There is no hydronephrosis or perinephric fat stranding. No renal calculi or renal masses are identified. The ureters are normal in caliber and no ureteral calculi are seen. The bladder is normal in contour. Enlarged prostate measuring approximately 35 x 48 mm. The stomach is grossly distended. Multiple dilated small bowel loops are noted involving the mid and lower quadrants of the abdomen, measuring up to 7.3 cm, with transition seen at mid abdomen showing few collapsed small bowel loops with mildly thickened wall. Distal small bowel loops are collapsed. Post op changes are seen in small bowel loop in mid abdomen and in right lower quadrant. Fat-containing ventral hernia, which shows mild internal fat stranding. No imaging evidence of appendicitis. Abdominal and pelvic vasculature is patent. No adenopathy or fluid collections are seen. No aggressive-appearing osseous lesions are identified. Colonic fecal and gaseous distension. Diffuse atherosclerotic calcification is noted involving the aorta and iliac arteries. Degenerative changes involving the spine are seen in the form of multilevel marginal osteophytes, disc space reduction, and facetal arthrosis. IMPRESSION: 1. Uncomplicated cholelithiasis, stable. 2. The stomach is grossly distended, stable. 3. Multiple dilated small bowel loops are noted involving the mid and lower quadrants of the abdomen, measuring up to 7.3 cm, with transition seen at mid abdomen showing few collapsed small bowel loops with mildly thickened wall- possibility of stricture. Features suggestive of small bowel obstruction. New finding. 4. Post op changes are seen in small bowel loop in mid abdomen and in right lower quadrant- new finding. 5. Fat-containing ventral hernia, which shows mild internal fat stranding, new finding. 6. Colonic fecal and gaseous distension. Electronically signed by Kenton Bush 03-08-2025 06:05 AM Medications Administered Discontinued Medications Sodium Chloride (Nss) 500 mls @ 999 mls/hr IV .Q31M STA Stop: 03/08/25 04:18 Last Infusion: 03/08/25 04:35 Dose: Infused Documented By: Admin: 03/08/25 04:00 Dose: 999 mls/hr Documented By: LEANNA Ioversol (Optiray 320 100ml) 94 ml IV ONCE ONE Stop: 03/08/25 04:58 Last Admin: 03/08/25 04:58 Dose: 94 ml Documented By: LOIDA Morphine Sulfate (Morphine Sulfate 4 Mg/Ml 1 Ml Carp\Vial) 4 mg IV NOW STA Stop: 03/08/25 03:49 Last Admin: 03/08/25 04:00 Dose: 4 mg Documented By: LEANNA Ondansetron HCl (Ondansetron Inj 2 Mg/Ml 2 Ml Vial) 4 mg IV NOW STA Stop: 03/08/25 03:49 Last Admin: 03/08/25 04:00 Dose: 4 mg Documented By: LEANNA Code Status & VTE Plan VTE Prophylaxis Plan VTE Prophylaxis will be ordered: Yes Supervising Physician Co-Signing Physician Notes Attending Addendum: Case reviewed with the advanced practitioner. I have personally performed a history and physical examination on the patient. I have reviewed the advanced practitioner's documentation on the date of service referenced in note, and I agree with, and take responsibility for the plan of care. please refer to her notes for full details patient seen and examined, records reviewed by myself as well SBO NPO IV fluids supportive care Gen Surg Cx diagnoses and plan of care as per advanced practitioner's notes I spent a total of 35 minutes coordinating, documenting, and providing care for this patient, excluding time spent in the performance of separately billed services or time spent by another provider/QHP. Seven Cottrell MD
[2025-03-08] MEDS ORDERED: KETOROLAC TROMETHAMINE 15 MG/ML VIAL IV PRN (11:17)
[2025-03-08] MEDS ORDERED: ALUMINUM/MAGNESIUM SUSP 30 ML UDC PO PRN (11:17)
[2025-03-08] MEDS ORDERED: ONDANSETRON INJ 2 MG/ML 2 ML VIAL IV PRN (11:17)
[2025-03-08] MEDS ORDERED: MAGNESIUM HYDROXIDE SUSP 30 ML UDC PO PRN (11:17)
[2025-03-08] MEDS ORDERED: MoRPHine SULFATE 2 MG/ML CARP IV PRN (11:17)
[2025-03-08] MEDS ORDERED: POLYETHYLENE (MIRALAX) 17 GM PACK PO PRN (11:17)
[2025-03-08] MEDS ORDERED: ACETAMINOPHEN 325 MG TAB PO PRN (11:17)
[2025-03-08] MEDS: SODIUM CHLORIDE 0.9% 1,000 ML IV SCH (11:22)
--- NOTE | 2025-03-08 12:46 | XRay Report ---
KUB HISTORY: NG placed check placement COMPARISON STUDY: 03/08/2025 FINDINGS: On the x-ray labeled attempt 2, the nasogastric tube tip is in the proximal stomach with th e sidehole 4 cm beyond the GE junction. IMPRESSION: Nasogastric tube as described. ACT 112: Negative or not required by law. The above report was generated using voice recognition software. It may contain grammatical, syntax o r spelling errors. Electronically signed by: Bahman Obregon M.D. 03/08/2025 12:45 PM
--- NOTE | 2025-03-08 14:37 | XRay Report ---
KUB HISTORY: ng came out a little bit. recheck position COMPARISON STUDY: 03/08/2025 FINDINGS: Nasogastric tube tip is in the proximal stomach with the sidehole 3 cm beyond the GE juncti on, minimally withdrawn compared to prior. There is stable patchy opacity at the left lung base. IMPRESSION: Nasogastric tube as described. ACT 112: Negative or not required by law. The above report was generated using voice recognition software. It may contain grammatical, syntax o r spelling errors. Electronically signed by: Bahman Obregon M.D. 03/08/2025 2:35 PM
[2025-03-08] MEDS ORDERED: NON-FORMULARY MEDICATION (Saliva Substitute Combo No.9 [Biotene Dry Mouth Oral Rinse] Mout PO SCH (17:00)
[2025-03-08] MEDS: ARTIFICIAL TEARS OP SCH (21:13)
[2025-03-08] MEDS: TAMSULOSIN HCL 0.4 MG CAP PO SCH (21:22)
[2025-03-08] MEDS: ATORVASTATIN 10 MG TAB PO SCH (21:22)
[2025-03-08] MEDS: METOPROLOL TARTRATE 25 MG TAB PO SCH (21:22)
[2025-03-09 07:53] LABS: Hematocrit (blood only) 37.3 % (42.0-52.0); Hemoglobin 12.2 g/dl (14.0-18.0); Mean Corpuscular Hemoglobin 28.5 pg (25.0-34.0); Mean Corpuscular Volume 87.1 fL (80.0-100.0); Platelet Count 121 K/uL (130-400); RDW Standard Deviation 44.7 fL (36.4-46.3); Red Blood Count 4.28 M/uL (4.70-6.10); White Blood Count 5.49 K/ul (4.8-10.8)
--- NOTE | 2025-03-09 07:54 | Surgery Progress Note ---
Date of Service March 09, 2025 Assessment & Plan (1) SBO (small bowel obstruction): Plan: Clamp trial for his NG tube If removed, we will start him on sips of clears Will follow Admission and Anticipated Discharge Date Admission Date: March 08, 2025 Subjective Patient seen and examined. Passing some flatus. Denies abdominal pain. Denies nausea or vomiting. Review of Systems Constitutional: no fever and no chills Respiratory: no cough and no dyspnea Cardiovascular: no chest pain and no dyspnea on exertion Gastrointestinal: no abdominal pain, no nausea and no vomiting Integumentary: no acne and no boil Psychiatric: no behavioral changes and no depression Physical Exam Constitutional: WD/WN, vitals as above Respiratory: normal respiratory effort, lungs clear to auscultation Cardiovascular: RRR, no murmur, no edema Gastrointestinal (Abdomen): Soft, mild distention, nontender Skin: no rashes, warm and dry Psychiatric: A+Ox3, euthymic affect Results & Data Vital Signs (Past 12 Hours) Vital Signs Temp Pulse Pulse Resp BP Pulse Ox O2 Del Method 03/09/25 07:49 36.5 C 80 20 173/89 H 97 Room Air 03/09/25 07:29 74 03/09/25 02:42 36.6 C 75 18 136/74 97 Room Air 03/08/25 22:29 36.7 C 74 18 122/69 94 Room Air 03/08/25 22:00 75 PG Care Time/CCT Total # of Minutes Spent Total Time Spent with Patient: Total time spent is greater than 50% in coordination of care (as documented) at patient's floor/unit and/or counseling patient: Coding Level of Care Code 73278 SUB INP/OBS CARE 06/17MIN Diagnoses SBO (small bowel obstruction) K56.609
[2025-03-09 08:12] LABS: Anion Gap 5.0 (3-11); Blood Urea Nitrogen 9.0 mg/dl (6-23); Calcium 8.7 mg/dl (8.6-10.3); Carbon Dioxide 28.0 mmol/L (21-32); Chloride 101.0 mmol/L (98-107); Creatinine Clr Calc Pharmacy 104.6 ml/min; Glucose 88.0 mg/dl (70-99(Fasting)); Magnesium 2.1 mg/dl (1.7-2.4); Potassium 4.6 mmol/L (3.5-5.1); Sodium 134.0 mmol/L (136-145)
[2025-03-09 09:41] LABS: Appearance Urine Clear (Clear); Glucose Urine UA Negative (Negative)
[2025-03-09] MEDS: FOLIC ACID 1 MG TAB PO SCH (10:02)
[2025-03-09] MEDS: CYANOCOBALAMIN (B-12) 500 MCG TABLET PO SCH (10:02)
[2025-03-09] MEDS: ASCORBIC ACID 500 MG TAB PO SCH (10:02)
[2025-03-09] MEDS: FUROSEMIDE 20 MG TAB PO SCH (10:03)
[2025-03-09] MEDS: MULTIVITAMIN TAB PO SCH (10:03)
[2025-03-09] MEDS: POLYETHYLENE (MIRALAX) 17 GM PACK PO SCH (10:03)
--- NOTE | 2025-03-09 15:38 | Hospitalist Progress Note ---
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 HLD, BPH, GERD, chronic hyponatremia, past tobacco abuse, cecal volvulus s/p exploratory laparotomy with right colon resection and anastomosis in August 2023 and incarcerated right inguinal hernia with bowel obstruction s/p laparoscopic right inguinal hernia repair with mesh, enterolysis and release of small bowel obstruction who presented to the ED from [facility] with complaints of abdominal pain and N/V and was found to have a SBO. CTAP: The stomach is grossly distended. Multiple dilated small bowel loops are noted involving the mid and lower quadrants of the abdomen, measuring up to 7.3 cm, with transition seen at mid abdomen showing few collapsed small bowel loops with mildly thickened wall. Distal small bowel loops are collapsed. Fat- containing ventral hernia, which shows mild internal fat stranding, new finding. Colonic fecal and gaseous distension. Small bowel obstruction Fat-containing ventral hernia (new finding) Labs personally reviewed and grossly unremarkable when compared to prior. CTAP as per above. Appreciate general surgery consult. -No acute surgical intervention warranted at this time. -Conservative management for now with NPO status, MIVF, NGT placement on low intermittent suction, PRN IV antiemetics/analgesia. Also found to have new ventral hernia on CTAP which is soft and reducible on exam. 03/09 Improving Clear liquid diet ordered Monitor closely History of cardiomyopathy History of reduced EF on recent nuclear stress test per most recent visit with Dr. Barth last month. Has not yet had cardiac catheterization completed -- unclear when this is scheduled for. Recommendation was to obtain TTE on the same day as the catheterization. Patient with 2+ BLE pitting edema on exam. Patient reports this is chronic for him, on Lasix 20 mg p.o. daily which he notes compliance with. Given this, however, we will obtain BNP and TTE. S/p 1L NSS in ED. Will cautiously only do MIVF at 60 cc/hour x 1 more bag for now. No current cardiopulmonary complaints. 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 Edema improving Continue Lasix HTN Mildly hypertensive in ED. Did not take home antihypertensives yet today, will give lisinopril and Norvasc now. Pain could also be contributing as well. Continue BB this evening. Routine BP monitoring, adjust regimen PRN. Chronic hyponatremia Na appears to be around baseline when compared to prior, continue to monitor. Other chronic medical conditions: GERD - Continue PPI. BPH - Continue Flomax. HLD - Continue statin. 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 DVT Prophylaxis: SCDs/TEDs only for now Code Status: FULL CODE - Per direct discussion with the patient. PCP: TUNG Karimi Disposition: Admit to med/telemetry Admission and Anticipated Discharge Date Admission Date: March 08, 2025 Subjective Resting in bed, comfortable States he feels fine overall NG tube removed Has been feeling okay since No nausea, abdominal pain Positive flatus No other new symptoms Review of Systems Review of Systems: all noted and negative except for above Physical Exam Physical Exam: General- oriented x 3, not in distress, speaks in sentences with no effort or accessory muscle use Eyes- anicteric Neck- no JVD Lungs- clear breath sounds bilaterally, no rales/wheezes Heart- normal rate, regular rhythm; no murmurs Abdomen- hypoactive bowel sounds- better than yesterday, nondistended, soft, nontender Extremities- no pretibial edema, no calf tenderness Neuro- alert, oriented x 3; no gross focal neurologic deficits Skin- warm & dry Results & Data Results & Data Vital Signs (Past 12 Hours) Vital Signs Temp Pulse Pulse Resp BP Pulse Ox O2 Del Method 03/09/25 15:28 71 03/09/25 15:10 36.6 C 79 20 171/95 H 97 Room Air 03/09/25 11:19 36.4 C L 71 20 146/80 H 97 Room Air 03/09/25 07:49 36.5 C 80 20 173/89 H 97 Room Air 03/09/25 07:29 74
[2025-03-09] MEDS ORDERED: MoRPHine SULFATE 4 MG/ML 1 ML CARP\\VIAL IV PRN (21:38)
--- NOTE | 2025-03-10 11:52 | Surgery Progress Note ---
Date of Service March 10, 2025 Assessment & Plan (1) SBO (small bowel obstruction): Plan: Resolving SBO Advance diet as tolerated to low fiber Okay to discharge if tolerating from general surgery standpoint Surgery will follow peripherally, call with questions or concerns Admission and Anticipated Discharge Date Admission Date: March 08, 2025 Subjective Admitted with SBO, passing flatus, tolerated clear liquids. Symptoms from admission are gone. Physical Exam Constitutional: WD/WN, vitals as above Gastrointestinal (Abdomen): normal bowel sounds, soft, nontender, no hepatosplenomegaly Results & Data Vital Signs (Past 12 Hours) Vital Signs Temp Pulse Pulse Resp BP Pulse Ox Pulse Ox 03/10/25 11:21 03/10/25 11:00 95 03/10/25 07:40 36.8 C 85 18 125/75 95 03/10/25 07:21 86 03/10/25 02:51 132/69 03/10/25 02:36 79 18 96/60 L 96 03/10/25 02:20 90 14 95 O2 Del Method O2 Del Method 03/10/25 11:21 Room Air 03/10/25 11:00 Room Air 03/10/25 07:40 Room Air 03/10/25 07:21 03/10/25 02:51 03/10/25 02:36 Room Air, CPAP 03/10/25 02:20 PG Care Time/CCT Total # of Minutes Spent Total Time Spent with Patient: Total time spent is greater than 50% in coordination of care (as documented) at patient's floor/unit and/or counseling patient: Coding Level of Care Code 70686 SUB INP/OBS CARE 2/35MIN Diagnoses SBO (small bowel obstruction) K56.609
--- NOTE | 2025-03-10 16:09 | Hospitalist Progress Note ---
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 HLD, BPH, GERD, chronic hyponatremia, past tobacco abuse, cecal volvulus s/p exploratory laparotomy with right colon resection and anastomosis in August 2023 and incarcerated right inguinal hernia with bowel obstruction s/p laparoscopic right inguinal hernia repair with mesh, enterolysis and release of small bowel obstruction who presented to the ED from [facility] with complaints of abdominal pain and N/V and was found to have a SBO. CTAP: The stomach is grossly distended. Multiple dilated small bowel loops are noted involving the mid and lower quadrants of the abdomen, measuring up to 7.3 cm, with transition seen at mid abdomen showing few collapsed small bowel loops with mildly thickened wall. Distal small bowel loops are collapsed. Fat- containing ventral hernia, which shows mild internal fat stranding, new finding. Colonic fecal and gaseous distension. Small bowel obstruction Fat-containing ventral hernia (new finding) Labs personally reviewed and grossly unremarkable when compared to prior. CTAP as per above. Appreciate general surgery consult. -No acute surgical intervention warranted at this time. -Conservative management for now with NPO status, MIVF, NGT placement on low intermittent suction, PRN IV antiemetics/analgesia. Also found to have new ventral hernia on CTAP which is soft and reducible on exam. 03/09 Improving Clear liquid diet ordered Monitor closely 03/10 Continues to improve Advance diet to full liquids, if tolerating soft diet tonight History of cardiomyopathy History of reduced EF on recent nuclear stress test per most recent visit with Dr. Barth last month. Has not yet had cardiac catheterization completed -- unclear when this is scheduled for. Recommendation was to obtain TTE on the same day as the catheterization. Patient with 2+ BLE pitting edema on exam. Patient reports this is chronic for him, on Lasix 20 mg p.o. daily which he notes compliance with. Given this, however, we will obtain BNP and TTE. S/p 1L NSS in ED. Will cautiously only do MIVF at 60 cc/hour x 1 more bag for now. No current cardiopulmonary complaints. 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 Edema improving Continue Lasix HTN Mildly hypertensive in ED. Did not take home antihypertensives yet today, will give lisinopril and Norvasc now. Pain could also be contributing as well. Continue BB this evening. Routine BP monitoring, adjust regimen PRN. Chronic hyponatremia Na appears to be around baseline when compared to prior, continue to monitor. Other chronic medical conditions: GERD - Continue PPI. BPH - Continue Flomax. HLD - Continue statin. 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 DVT Prophylaxis: SCDs/TEDs only for now Code Status: FULL CODE - Per direct discussion with the patient. PCP: TUNG Karimi Disposition: Admit to med/telemetry Admission and Anticipated Discharge Date Admission Date: March 08, 2025 Subjective ff up For small bowel obstruction Seen resting in bed, comfortable, not in distress States he continues to feel better No abdominal pain or nausea Tolerating clear liquids Positive flatus, no BM yet No other new symptoms Review of Systems Review of Systems: all noted and negative except for above Physical Exam Physical Exam: General- oriented x 3, not in distress, speaks in sentences with no effort or accessory muscle use Eyes- anicteric Neck- no JVD Lungs- clear breath sounds bilaterally Heart- normal rate, regular rhythm; no murmurs Abdomen- normal bowel sounds, nondistended, soft, nontender Extremities- mild pedal edema, no calf tenderness Neuro- alert, oriented x 3; no gross focal neurologic deficits Skin- warm & dry Results & Data Results & Data Vital Signs (Past 12 Hours) Vital Signs Temp Pulse Pulse Resp BP Pulse Ox Pulse Ox 03/10/25 15:41 75 03/10/25 12:11 36.6 C 16 L 16 121/73 95 03/10/25 11:21 03/10/25 11:00 95 03/10/25 07:40 36.8 C 85 18 125/75 95 03/10/25 07:21 86 O2 Del Method O2 Del Method 03/10/25 15:41 03/10/25 12:11 Room Air 03/10/25 11:21 Room Air 03/10/25 11:00 Room Air 03/10/25 07:40 Room Air 03/10/25 07:21 all noted and reviewed including below
[2025-03-11 07:55] LABS: Anion Gap 5.0 (3-11); Blood Urea Nitrogen 13.0 mg/dl (6-23); Calcium 8.5 mg/dl (8.6-10.3); Carbon Dioxide 30.0 mmol/L (21-32); Chloride 99.0 mmol/L (98-107); Creatinine Clr Calc Pharmacy 61.2 ml/min; Glucose 107.0 mg/dl (70-99(Fasting)); Magnesium 2.0 mg/dl (1.7-2.4); Potassium 4.2 mmol/L (3.5-5.1); Sodium 134.0 mmol/L (136-145)
--- NOTE | 2025-03-11 15:48 | Hospitalist Progress Note ---
Date of Service March 11, 2025 Assessment & Plan (1) SBO (small bowel obstruction): (2) Ventral hernia: Plan (1) SBO (small bowel obstruction): (2) Ventral hernia: Plan Patient is an 80y/o M with PMHx significant for right tonsillar cancer s/p surg milly and radiation therapy, chronic dysphagia, HTN. HLD, BPH, GERD, chronic hyponatremia, past tobacco abuse, cecal volvulus s/p exploratory laparotomy with right colon resection and anastomosis in August 2023 and incarcerated right inguinal hernia with bowel obstruction s/p laparoscopic right inguinal hernia repair with mesh, enterolysis and release of small bowel obstruction who presented to the ED from [facility] with complaints of abdominal pain and N/V and was found to have a SBO. CTAP: The stomach is grossly distended. Multiple dilated small bowel loops are noted involving the mid and lower quadrants of the abdomen, measuring up to 7.3 cm, with transition seen at mid abdomen showing few collapsed small bowel loops with mildly thickened wall. Distal small bowel loops are collapsed. Fat- containing ventral hernia, which shows mild internal fat stranding, new finding. Colonic fecal and gaseous distension. Small bowel obstruction Fat-containing ventral hernia (new finding) Labs personally reviewed and grossly unremarkable when compared to prior. CTAP as per above. Appreciate general surgery consult. -No acute surgical intervention warranted at this time. -Conservative management for now with NPO status, MIVF, NGT placement on low intermittent suction, PRN IV antiemetics/analgesia.Also found to have new ventral hernia on CTAP which is soft and reducible on exam. 03/09 Improving Clear liquid diet ordered Monitor closely 03/10 Continues to improve Advance diet to full liquids, if tolerating soft diet tonight 03/11 Tolerating soft diet Positive BMs Cleared for discharge History of cardiomyopathy History of reduced EF on recent nuclear stress test per most recent visit with Dr. Barth last month. Has not yet had cardiac catheterization completed -- unclear when this is scheduled for. Recommendation was to obtain TTE on the same day as the catheterization. Patient with 2+ BLE pitting edema on exam. Patient reports this is chronic for him, on Lasix 20 mg p.o. daily which he notes compliance with. Given this, however, we will obtain BNP and TTE. S/p 1L NSS in ED. Will cautiously only do MIVF at 60 cc/hour x 1 more bag for now. No current cardiopulmonary complaints. 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 03/11 Echocardiogram: Left ventricle is normal in size Mild concentric LVH Basal septum is thickened and angulated consistent with sigmoid septum Left ventricular motion is normal Left ventricle ejection fraction is 60 to 65% Trace mitral regurgitation, trace tricuspid regurgitation Grade 1 diastolic dysfunction Edema improved--> now only has mild pedal edema Continue Lasix PO -- monitor closely HTN Mildly hypertensive in ED. Did not take home antihypertensives yet today, will give lisinopril and Norvasc now. Pain could also be contributing as well. Continue BB this evening. Routine BP monitoring, adjust regimen PRN. BP stable overall Chronic hyponatremia Na appears to be around baseline when compared to prior, continue to monitor. Other chronic medical conditions: GERD - Continue PPI. BPH - Continue Flomax. HLD - Continue statin. 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 DVT Prophylaxis: SCDs/TEDs only for now Code Status: FULL CODE - Per direct discussion with the patient. PCP: TUNG Karimi Disposition: return to [facility] Admission and Anticipated Discharge Date Admission Date: March 08, 2025 Subjective Follow-up for small bowel obstruction Seen resting in bed, comfortable States he feels much better overall No abdominal pain, nausea Tolerating diet well, positive BMs- brown, nonbloody No shortness of breath, chest pain No other new symptoms Agreeable for discharge today Review of Systems Review of Systems: all noted and negative except for above Physical Exam Physical Exam: General- oriented x 3, not in distress, speaks in sentences with no effort or accessory muscle use Eyes- anicteric Neck- no JVD Lungs- clear breath sounds bilaterally, no rales/wheezes Heart- normal rate, regular rhythm; no murmurs Abdomen- normal bowel sounds, nondistended, soft, nontender Extremities-mild pedal edema, no calf tenderness Neuro- alert, oriented x 3; no gross focal neurologic deficits Skin- warm & dry Results & Data Results & Data Vital Signs (Past 12 Hours) Vital Signs Temp Pulse Pulse Resp BP Pulse Ox O2 Del Method 03/11/25 15:02 71 03/11/25 11:38 36.4 C 65 16 115/67 97 Room Air 03/11/25 11:25 Room Air 03/11/25 09:38 79 03/11/25 08:03 37.2 C 74 18 131/70 96 Room Air
--- NOTE | 2025-03-11 15:52 | Discharge Summary ---
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 CTAP: The stomach is grossly distended. Multiple dilated small bowel loops are noted involving the mid and lower quadrants of the abdomen, measuring up to 7.3 cm, with transition seen at mid abdomen showing few collapsed small bowel loops with mildly thickened wall. Distal small bowel loops are collapsed. Fat- containing ventral hernia, which shows mild internal fat stranding, new finding. Colonic fecal and gaseous distension. Small bowel obstruction Fat-containing ventral hernia (new finding) Labs personally reviewed and grossly unremarkable when compared to prior. CTAP as per above. Appreciate general surgery consult. -No acute surgical intervention warranted at this time. -Conservative management for now with NPO status, MIVF, NGT placement on low intermittent suction, PRN IV antiemetics/analgesia.Also found to have new ventral hernia on CTAP which is soft and reducible on exam. 03/09 NG tube removed Improving Clear liquid diet ordered Monitor closely 03/10 Continues to improve Advance diet to full liquids, if tolerating soft diet tonight 03/11 Tolerating soft diet Positive BMs Cleared for discharge History of cardiomyopathy History of reduced EF on recent nuclear stress test per most recent visit with Dr. Barth last month. Has not yet had cardiac catheterization completed -- unclear when this is scheduled for. Recommendation was to obtain TTE on the same day as the catheterization. Patient with 2+ BLE pitting edema on exam. Patient reports this is chronic for him, on Lasix 20 mg p.o. daily which he notes compliance with. Given this, however, we will obtain BNP and TTE. S/p 1L NSS in ED. Will cautiously only do MIVF at 60 cc/hour x 1 more bag for now. No current cardiopulmonary complaints. 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 03/11 Echocardiogram: Left ventricle is normal in size Mild concentric LVH Basal septum is thickened and angulated consistent with sigmoid septum Left ventricular motion is normal Left ventricle ejection fraction is 60 to 65% Trace mitral regurgitation, trace tricuspid regurgitation Grade 1 diastolic dysfunction Edema improved--> now only has mild pedal edema Continue Lasix PO -- monitor closely Incidental Findings on CT abdomen Enlarged prostate measuring approximately 35 x 48 mm. Diffuse atherosclerotic calcification is noted involving the aorta and iliac arteries. -- Further work up, management, and ff up as outpatient HTN Mildly hypertensive in ED. Did not take home antihypertensives yet today, will give lisinopril and Norvasc now. Pain could also be contributing as well. Continue BB this evening. Routine BP monitoring, adjust regimen PRN. BP stable overall Chronic hyponatremia Na appears to be around baseline when compared to prior, continue to monitor. Other chronic medical conditions: GERD - Continue PPI. BPH - Continue Flomax. HLD - Continue statin. 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 DVT Prophylaxis: SCDs/TEDs only for now Code Status: FULL CODE - Per direct discussion with the patient. 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 History obtained from the patient and associated chart review. Started with abdominal pain roughly 2 days ago. Generalized in characteristic, mostly crampy. Progressively worsened. Developed N/V last evening. Reportedly was given a stool softener [facility] yesterday afternoon and had a very small BM but his symptoms still worsened. Passing flatus. Denies any SOB or chest pain. Ultimately found to have a small bowel obstruction on CTAP in the ED and is being admitted for further management of this. Admission Exam Per Admitting Provider General: Elderly M, laying down in bed, NAD, A&Ox3, correctional officers at bedside HEENT: Normocephalic, atraumatic, external ear and nose normal, somewhat dry mucous membranes Respiratory: Normal respiratory effort, CTAB, on RA Cardiovascular: RRR, + murmur, normal peripheral pulses, 2+ BLE pitting edema Abdomen/GI: Somewhat hypoactive bowel sounds, mildly distended but soft, + healed midline ex lap incision appreciated, mild TTP throughout without rebound or guarding Extremities/Musculoskeletal: No cyanosis or clubbing, extremities motor strength intact, moves all extremities, BLE SCDs in place, + cuff on R ankle Neurologic: No overt focal deficits, CN's II-XI not formally tested but appear grossly intact bilaterally Discharge Exam General- oriented x 3, not in distress, speaks in sentences with no effort or accessory muscle use Eyes- anicteric Neck- no JVD Lungs- clear breath sounds bilaterally Heart- normal rate, regular rhythm; no murmurs Abdomen- normal bowel sounds, nondistended, soft, nontender Extremities- mild pedal edema, no calf tenderness Neuro- alert, oriented x 3; no gross focal neurologic deficits Skin- warm & dry Updated Medication List Medication Instructions Recorded Confirmed Type amlodipine 10 mg tablet 10 mg PO DAILY 11/30/23 03/08/25 History artificial tears solution eye drops 1 drp ophthalmic (eye) TID 11/30/23 03/08/25 History ascorbic acid (vitamin C) 500 mg 500 mg PO DAILY 11/30/23 03/08/25 History tablet (Vitamin C) atorvastatin 10 mg tablet 10 mg PO HS 11/30/23 03/08/25 History cyanocobalamin (vitamin B-12) 500 500 mcg PO DAILY 11/30/23 03/08/25 History mcg tablet folic acid 1 mg tablet 1 mg PO DAILY 11/30/23 03/08/25 History furosemide 20 mg tablet (Lasix) 20 mg PO DAILY 11/30/23 03/08/25 History lisinopril 20 mg tablet 20 mg PO DAILY 11/30/23 03/08/25 History metoprolol tartrate 25 mg tablet 12.5 mg PO BID 11/30/23 03/08/25 History omeprazole 20 mg capsule,delayed 20 mg PO DAILY 11/30/23 03/08/25 History release tamsulosin 0.4 mg capsule (Flomax) 0.4 mg PO HS 11/30/23 03/08/25 History lidocaine 5 % topical ointment 1 applic topical DAILY PRN Unknown 02/01/25 03/08/25 History multivitamin 1 tab PO DAILY 02/01/25 03/08/25 History docusate sodium 100 mg capsule 100 mg PO BID PRN Constipation 03/08/25 03/08/25 History docusate sodium 100 mg capsule 100 mg PO DAILY 03/08/25 03/08/25 History multivitamin-minerals 1 tab PO DAILY 03/08/25 03/08/25 History no.36-iron,carbonyl-FA 16 mg iron-0.38 mg tablet (Geritol Complete) polyethylene glycol 3350 17 17 g PO DAILY 03/08/25 03/08/25 History gram/dose oral powder (Miralax) saliva substitute combo no.9 1 ea PO QID 03/08/25 03/08/25 History (Biotene Dry Mouth Oral Rinse mouthwash) Hospital Stay Data Consultations 03/08/25 06:07 Consult General Surgery Routine 03/08/25 06:40 ED Decision to Admit Stat Diagnostic Imagining Performed Laboratory Results WBC 5.49 K/ul (4.8-10.8) 03/09/25 07:11 RBC 4.28 M/uL (4.70-6.10) L 03/09/25 07:11 Hgb 12.2 g/dl (14.0-18.0) L 03/09/25 07:11 Hct 37.3 % (42.0-52.0) L 03/09/25 07:11 MCV 87.1 fL (80.0-100.0) 03/09/25 07:11 MCH 28.5 pg (25.0-34.0) 03/09/25 07:11 MCHC 32.7 g/dL (32.0-36.0) 03/09/25 07:11 RDW Std Deviation 44.7 fL (36.4-46.3) 03/09/25 07:11 RDW Coeff of Shanelle 13.9 % (11.5-14.5) 03/09/25 07:11 Plt Count 121 K/uL (130-400) L 03/09/25 07:11 MPV 9.8 fL (9.4-12.4) 03/09/25 07:11 Immature Gran % (Auto) 0.3 % 03/08/25 03:50 Neut % (Auto) 88.2 % 03/08/25 03:50 Lymph % (Auto) 3.4 % 03/08/25 03:50 [place] % (Auto) 7.4 % 03/08/25 03:50 Eos % (Auto) 0.5 % 03/08/25 03:50 Baso % (Auto) 0.2 % 03/08/25 03:50 Neut # (Auto) 8.32 K/uL (1.40-6.50) H 03/08/25 03:50 Lymph # (Auto) 0.32 K/uL (1.20-3.40) L 03/08/25 03:50 [place] # (Auto) 0.70 K/uL (0.11-0.59) H 03/08/25 03:50 Eos # (Auto) 0.05 K/uL (0.00-0.50) 03/08/25 03:50 Baso # (Auto) 0.02 K/uL (0.00-0.20) 03/08/25 03:50 Immature Gran # (Auto) 0.03 K/uL (0.01-0.20) 03/08/25 03:50 Sodium 134 mmol/L (136-145) L 03/11/25 07:05 Potassium 4.2 mmol/L (3.5-5.1) 03/11/25 07:05 Chloride 99 mmol/L (98-107) 03/11/25 07:05 Carbon Dioxide 30 mmol/L (21-32) 03/11/25 07:05 Anion Gap 5 (3-11) 03/11/25 07:05 BUN 13 mg/dl (6-23) 03/11/25 07:05 Creatinine 1.07 mg/dl (0.6-1.4) D 03/11/25 07:05 Est Cr Clr Drug Dosing 61.2 ml/min 03/11/25 07:05 eGFR 69.28 03/11/25 07:05 BUN/Creatinine Ratio 12.1 (10-20) 03/11/25 07:05 Glucose 107 mg/dl (70-99(Fasting)) H 03/11/25 07:05 Lactate 1.0 mmol/L (0.4-2.0) 03/08/25 03:50 Calcium 8.5 mg/dl (8.6-10.3) L 03/11/25 07:05 Phosphorus 2.8 mg/dl (2.5-4.9) 03/11/25 07:05 Magnesium 2.0 mg/dl (1.7-2.4) 03/11/25 07:05 Total Bilirubin 0.9 mg/dl (0.2-1.0) 03/08/25 03:50 AST 39 U/L (13-39) 03/08/25 03:50 ALT 23 U/L (7-52) 03/08/25 03:50 Alkaline Phosphatase 81 U/L (34-104) 03/08/25 03:50 B-Natriuretic Peptide 50 pg/ml (0-100) 03/08/25 12:21 Total Protein 7.9 gm/dl (6.0-8.3) 03/08/25 03:50 Albumin 4.8 gm/dl (3.4-5.0) 03/08/25 03:50 Globulin 3.1 gm/dl (2.5-4.0) 03/08/25 03:50 Albumin/Globulin Ratio 1.5 (0.9-2) 03/08/25 03:50 Lipase 22 U/L (11-82) 03/08/25 03:50 Urine Color Yellow 03/09/25 09:14 Urine Appearance Clear (Clear) 03/09/25 09:14 Urine pH 7.0 (4.5-7.5) 03/09/25 09:14 Ur Specific [place] 1.015 (1.000-1.030) 03/09/25 09:14 Urine Protein Negative (Negative) 03/09/25 09:14 Urine Glucose (UA) Negative (Negative) 03/09/25 09:14 Urine Ketones Trace (Negative) H 03/09/25 09:14 Urine Blood Negative (Negative) 03/09/25 09:14 Urine Nitrite Negative (Negative) 03/09/25 09:14 Urine Bilirubin Negative (Negative) 03/09/25 09:14 Urine Urobilinogen Negative (Negative) 03/09/25 09:14 Ur Leukocyte Esterase Negative (Negative) 03/09/25 09:14 Urine Comment 03/09/25 09:14 Nasal Screen MRSA (PCR) Negative (Negative) 03/08/25 11:24 Impressions Abdomen/Pelvis CT 03/08/25 04:32 EXAM: CT abd pelvis IV con only CLINICAL HISTORY: Left-sided abdominal pain, nausea TECHNIQUE: Contiguous axial images were obtained from the level of the diaphragm to the pubic symphysis with intravenous contrast. Coronal and sagittal reconstructions were likewise performed and indicated to increase the sensitivity for detecting clinically relevant pathology. If IV contrast material had not been administered, the likelihood of detecting abnormalities relevant to the patient's condition would have been substantially decreased. CT scan was performed according to ALARA (as low as reasonably achievable). COMPARISON: 10:12:07 INDEPENDENT JEWELER. Open FINDINGS: A few atelectatic bands are noted involving the bilateral lung bases. The liver is normal in size and attenuation. No focal liver lesions are seen. There is no intrahepatic or extrahepatic biliary ductal dilatation. The hepatic vasculature is patent. The gallbladder shows a calculus of size 15 mm without cholecystitis. The spleen, pancreas, and adrenal glands are unremarkable. The kidneys are normal in size and attenuation. There is no hydronephrosis or perinephric fat stranding. No renal calculi or renal masses are identified. The ureters are normal in caliber and no ureteral calculi are seen. The bladder is normal in contour. Enlarged prostate measuring approximately 35 x 48 mm. The stomach is grossly distended. Multiple dilated small bowel loops are noted involving the mid and lower quadrants of the abdomen, measuring up to 7.3 cm, with transition seen at mid abdomen showing few collapsed small bowel loops with mildly thickened wall. Distal small bowel loops are collapsed. Post op changes are seen in small bowel loop in mid abdomen and in right lower quadrant. Fat-containing ventral hernia, which shows mild internal fat stranding. No imaging evidence of appendicitis. Abdominal and pelvic vasculature is patent. No adenopathy or fluid collections are seen. No aggressive-appearing osseous lesions are identified. Colonic fecal and gaseous distension. Diffuse atherosclerotic calcification is noted involving the aorta and iliac arteries. Degenerative changes involving the spine are seen in the form of multilevel marginal osteophytes, disc space reduction, and facetal arthrosis. IMPRESSION: 1. Uncomplicated cholelithiasis, stable. 2. The stomach is grossly distended, stable. 3. Multiple dilated small bowel loops are noted involving the mid and lower quadrants of the abdomen, measuring up to 7.3 cm, with transition seen at mid abdomen showing few collapsed small bowel loops with mildly thickened wall- possibility of stricture. Features suggestive of small bowel obstruction. New finding. 4. Post op changes are seen in small bowel loop in mid abdomen and in right lower quadrant- new finding. 5. Fat-containing ventral hernia, which shows mild internal fat stranding, new finding. 6. Colonic fecal and gaseous distension. Electronically signed by Kenton Bush 03-08-2025 06:05 AM KUB X-Ray 03/08/25 14:14 KUB HISTORY: ng came out a little bit. recheck position COMPARISON STUDY: 03/08/2025 FINDINGS: Nasogastric tube tip is in the proximal stomach with the sidehole 3 cm beyond the GE junction, minimally withdrawn compared to prior. There is stable patchy opacity at the left lung base. IMPRESSION: Nasogastric tube as described. ACT 112: Negative or not required by law. The above report was generated using voice recognition software. It may contain grammatical, syntax or spelling errors. Electronically signed by: Bahman Obregon M.D. 03/08/2025 2:35 PM 03/08/25 04:32 CT abd pelvis IV con only Stat Total Time Total Time Spent Total Time Spent (In Minutes): 45 minutes
--- NOTE | 2025-03-12 05:12 | Electrocardiogram Report ---
Test Reason : Blood Pressure : */* mmHG Vent. Rate : 81 BPM Atrial Rate : 81 BPM P-R Int : 148 ms QRS Dur : 88 ms QT Int : 356 ms P-R-T Axes : 65 14 51 degrees QTcB Int : 413 ms Sinus rhythm with Premature supraventricular complexes Nonspecific T wave abnormality Abnormal ECG When compared with ECG of 30-Nov-2023 09:14, Premature supraventricular complexes are now Present Confirmed by Lukas Goldsmith ([id number]) on 03/12/2025 5:12:26 AM Referred By: REFERRED SELF Confirmed By: Lukas Goldsmith
--- NOTE | 2025-03-12 09:42 | Discharge Summary ---
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 CTAP: The stomach is grossly distended. Multiple dilated small bowel loops are noted involving the mid and lower quadrants of the abdomen, measuring up to 7.3 cm, with transition seen at mid abdomen showing few collapsed small bowel loops with mildly thickened wall. Distal small bowel loops are collapsed. Fat- containing ventral hernia, which shows mild internal fat stranding, new finding. Colonic fecal and gaseous distension. Small bowel obstruction Fat-containing ventral hernia (new finding) Labs personally reviewed and grossly unremarkable when compared to prior. CTAP as per above. Appreciate general surgery consult. -No acute surgical intervention warranted at this time. -Conservative management for now with NPO status, MIVF, NGT placement on low intermittent suction, PRN IV antiemetics/analgesia.Also found to have new ventral hernia on CTAP which is soft and reducible on exam. 03/09 NG tube removed Improving Clear liquid diet ordered Monitor closely 03/10 Continues to improve Advance diet to full liquids, if tolerating soft diet tonight 03/11 Tolerating soft diet Positive BMs Cleared for discharge callback from [facility] was not received, discharge cancelled 03/12 feeling much better tolerating diet (+) BMs History of cardiomyopathy History of reduced EF on recent nuclear stress test per most recent visit with Dr. Barth last month. Has not yet had cardiac catheterization completed -- unclear when this is scheduled for. Recommendation was to obtain TTE on the same day as the catheterization. Patient with 2+ BLE pitting edema on exam. Patient reports this is chronic for him, on Lasix 20 mg p.o. daily which he notes compliance with. Given this, however, we will obtain BNP and TTE. S/p 1L NSS in ED. Will cautiously only do MIVF at 60 cc/hour x 1 more bag for now. No current cardiopulmonary complaints. Continue [employer] Lasix dosing for now. 03/11 Echocardiogram: Left ventricle is normal in size Mild concentric LVH Basal septum is thickened and angulated consistent with sigmoid septum Left ventricular motion is normal Left ventricle ejection fraction is 60 to 65% Trace mitral regurgitation, trace tricuspid regurgitation Grade 1 diastolic dysfunction Edema improved--> now only has mild pedal edema Continue Lasix PO Abnormal Stress Test -- noted 01/2025 -- start ASA daily -- monitor closely Incidental Findings on CT abdomen Enlarged prostate measuring approximately 35 x 48 mm. Diffuse atherosclerotic calcification is noted involving the aorta and iliac arteries. -- start ASA 81mg enteric coated -- Further work up, management, and ff up as outpatient HTN Mildly hypertensive in ED. Did not take home antihypertensives yet today, will give lisinopril and Norvasc now. Pain could also be contributing as well. Continue BB this evening. Routine BP monitoring, adjust regimen PRN. BP stable overall Chronic hyponatremia Na appears to be around baseline when compared to prior, continue to monitor. Other chronic medical conditions: GERD - Continue PPI. BPH - Continue Flomax. HLD - Continue statin. RODOLFO - Uses CPAP HS [employer], continue. DVT Prophylaxis: SCDs/TEDs only for now Code Status: FULL CODE - Per direct discussion with the patient. 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 History obtained from the patient and associated chart review. Started with abdominal pain roughly 2 days ago. Generalized in characteristic, mostly crampy. Progressively worsened. Developed N/V last evening. Reportedly was given a stool softener by [facility] staff yesterday afternoon and had a very small BM but his symptoms still worsened. Passing flatus. Denies any SOB or chest pain. Ultimately found to have a small bowel obstruction on CTAP in the ED and is being admitted for further management of this. Admission Exam Per Admitting Provider General: Elderly M, laying down in bed, NAD, A&Ox3, correctional officers at bedside HEENT: Normocephalic, atraumatic, external ear and nose normal, somewhat dry mucous membranes Respiratory: Normal respiratory effort, CTAB, on RA Cardiovascular: RRR, + murmur, normal peripheral pulses, 2+ BLE pitting edema Abdomen/GI: Somewhat hypoactive bowel sounds, mildly distended but soft, + healed midline ex lap incision appreciated, mild TTP throughout without rebound or guarding Extremities/Musculoskeletal: No cyanosis or clubbing, extremities motor strength intact, moves all extremities, BLE SCDs in place, + cuff on R ankle Neurologic: No overt focal deficits, CN's II-XI not formally tested but appear grossly intact bilaterally Discharge Exam General- oriented x 3, not in distress, speaks in sentences with no effort or accessory muscle use Eyes- anicteric Neck- no JVD Lungs- clear breath sounds bilaterally Heart- normal rate, regular rhythm; no murmurs Abdomen- normal bowel sounds, nondistended, soft, nontender Extremities- mild pedal edema, no calf tenderness Neuro- alert, oriented x 3; no gross focal neurologic deficits Skin- warm & dry Updated Medication List Medication Instructions Recorded Confirmed Type amlodipine 10 mg tablet 10 mg PO DAILY 11/30/23 03/08/25 History artificial tears solution eye drops 1 drp ophthalmic (eye) TID 11/30/23 03/08/25 History ascorbic acid (vitamin C) 500 mg 500 mg PO DAILY 11/30/23 03/08/25 History tablet (Vitamin C) atorvastatin 10 mg tablet 10 mg PO HS 11/30/23 03/08/25 History cyanocobalamin (vitamin B-12) 500 500 mcg PO DAILY 11/30/23 03/08/25 History mcg tablet folic acid 1 mg tablet 1 mg PO DAILY 11/30/23 03/08/25 History furosemide 20 mg tablet (Lasix) 20 mg PO DAILY 11/30/23 03/08/25 History lisinopril 20 mg tablet 20 mg PO DAILY 11/30/23 03/08/25 History metoprolol tartrate 25 mg tablet 12.5 mg PO BID 11/30/23 03/08/25 History omeprazole 20 mg capsule,delayed 20 mg PO DAILY 11/30/23 03/08/25 History release tamsulosin 0.4 mg capsule (Flomax) 0.4 mg PO HS 11/30/23 03/08/25 History lidocaine 5 % topical ointment 1 applic topical DAILY PRN Unknown 02/01/25 03/08/25 History multivitamin 1 tab PO DAILY 02/01/25 03/08/25 History docusate sodium 100 mg capsule 100 mg PO BID PRN Constipation 03/08/25 03/08/25 History docusate sodium 100 mg capsule 100 mg PO DAILY 03/08/25 03/08/25 History multivitamin-minerals 1 tab PO DAILY 03/08/25 03/08/25 History no.36-iron,carbonyl-FA 16 mg iron-0.38 mg tablet (Geritol Complete) polyethylene glycol 3350 17 17 g PO DAILY 03/08/25 03/08/25 History gram/dose oral powder (Miralax) saliva substitute combo no.9 1 ea PO QID 03/08/25 03/08/25 History (Biotene Dry Mouth Oral Rinse mouthwash) aspirin 81 mg tablet,delayed 81 mg PO DAILY #30 tabs 03/12/25 Rx release (Ecotrin Low Strength) Hospital Stay Data Consultations 03/08/25 06:07 Consult General Surgery Routine 03/08/25 06:40 ED Decision to Admit Stat Diagnostic Imagining Performed Laboratory Results WBC 5.49 K/ul (4.8-10.8) 03/09/25 07:11 RBC 4.28 M/uL (4.70-6.10) L 03/09/25 07:11 Hgb 12.2 g/dl (14.0-18.0) L 03/09/25 07:11 Hct 37.3 % (42.0-52.0) L 03/09/25 07:11 MCV 87.1 fL (80.0-100.0) 03/09/25 07:11 MCH 28.5 pg (25.0-34.0) 03/09/25 07:11 MCHC 32.7 g/dL (32.0-36.0) 03/09/25 07:11 RDW Std Deviation 44.7 fL (36.4-46.3) 03/09/25 07:11 RDW Coeff of Shanelle 13.9 % (11.5-14.5) 03/09/25 07:11 Plt Count 121 K/uL (130-400) L 03/09/25 07:11 MPV 9.8 fL (9.4-12.4) 03/09/25 07:11 Immature Gran % (Auto) 0.3 % 03/08/25 03:50 Neut % (Auto) 88.2 % 03/08/25 03:50 Lymph % (Auto) 3.4 % 03/08/25 03:50 [place] % (Auto) 7.4 % 03/08/25 03:50 Eos % (Auto) 0.5 % 03/08/25 03:50 Baso % (Auto) 0.2 % 03/08/25 03:50 Neut # (Auto) 8.32 K/uL (1.40-6.50) H 03/08/25 03:50 Lymph # (Auto) 0.32 K/uL (1.20-3.40) L 03/08/25 03:50 [place] # (Auto) 0.70 K/uL (0.11-0.59) H 03/08/25 03:50 Eos # (Auto) 0.05 K/uL (0.00-0.50) 03/08/25 03:50 Baso # (Auto) 0.02 K/uL (0.00-0.20) 03/08/25 03:50 Immature Gran # (Auto) 0.03 K/uL (0.01-0.20) 03/08/25 03:50 Sodium 134 mmol/L (136-145) L 03/11/25 07:05 Potassium 4.2 mmol/L (3.5-5.1) 03/11/25 07:05 Chloride 99 mmol/L (98-107) 03/11/25 07:05 Carbon Dioxide 30 mmol/L (21-32) 03/11/25 07:05 Anion Gap 5 (3-11) 03/11/25 07:05 BUN 13 mg/dl (6-23) 03/11/25 07:05 Creatinine 1.07 mg/dl (0.6-1.4) D 03/11/25 07:05 Est Cr Clr Drug Dosing 61.2 ml/min 03/11/25 07:05 eGFR 69.28 03/11/25 07:05 BUN/Creatinine Ratio 12.1 (10-20) 03/11/25 07:05 Glucose 107 mg/dl (70-99(Fasting)) H 03/11/25 07:05 Lactate 1.0 mmol/L (0.4-2.0) 03/08/25 03:50 Calcium 8.5 mg/dl (8.6-10.3) L 03/11/25 07:05 Phosphorus 2.8 mg/dl (2.5-4.9) 03/11/25 07:05 Magnesium 2.0 mg/dl (1.7-2.4) 03/11/25 07:05 Total Bilirubin 0.9 mg/dl (0.2-1.0) 03/08/25 03:50 AST 39 U/L (13-39) 03/08/25 03:50 ALT 23 U/L (7-52) 03/08/25 03:50 Alkaline Phosphatase 81 U/L (34-104) 03/08/25 03:50 B-Natriuretic Peptide 50 pg/ml (0-100) 03/08/25 12:21 Total Protein 7.9 gm/dl (6.0-8.3) 03/08/25 03:50 Albumin 4.8 gm/dl (3.4-5.0) 03/08/25 03:50 Globulin 3.1 gm/dl (2.5-4.0) 03/08/25 03:50 Albumin/Globulin Ratio 1.5 (0.9-2) 03/08/25 03:50 Lipase 22 U/L (11-82) 03/08/25 03:50 Urine Color Yellow 03/09/25 09:14 Urine Appearance Clear (Clear) 03/09/25 09:14 Urine pH 7.0 (4.5-7.5) 03/09/25 09:14 Ur Specific [place] 1.015 (1.000-1.030) 03/09/25 09:14 Urine Protein Negative (Negative) 03/09/25 09:14 Urine Glucose (UA) Negative (Negative) 03/09/25 09:14 Urine Ketones Trace (Negative) H 03/09/25 09:14 Urine Blood Negative (Negative) 03/09/25 09:14 Urine Nitrite Negative (Negative) 03/09/25 09:14 Urine Bilirubin Negative (Negative) 03/09/25 09:14 Urine Urobilinogen Negative (Negative) 03/09/25 09:14 Ur Leukocyte Esterase Negative (Negative) 03/09/25 09:14 Urine Comment 03/09/25 09:14 Nasal Screen MRSA (PCR) Negative (Negative) 03/08/25 11:24 Impressions Abdomen/Pelvis CT 03/08/25 04:32 EXAM: CT abd pelvis IV con only CLINICAL HISTORY: Left-sided abdominal pain, nausea TECHNIQUE: Contiguous axial images were obtained from the level of the diaphragm to the pubic symphysis with intravenous contrast. Coronal and sagittal reconstructions were likewise performed and indicated to increase the sensitivity for detecting clinically relevant pathology. If IV contrast material had not been administered, the likelihood of detecting abnormalities relevant to the patient's condition would have been substantially decreased. CT scan was performed according to ALARA (as low as reasonably achievable). COMPARISON: 10:12:07 [employer]Y HOST/HOSTESS. Open FINDINGS: A few atelectatic bands are noted involving the bilateral lung bases. The liver is normal in size and attenuation. No focal liver lesions are seen. There is no intrahepatic or extrahepatic biliary ductal dilatation. The hepatic vasculature is patent. The gallbladder shows a calculus of size 15 mm without cholecystitis. The spleen, pancreas, and adrenal glands are unremarkable. The kidneys are normal in size and attenuation. There is no hydronephrosis or perinephric fat stranding. No renal calculi or renal masses are identified. The ureters are normal in caliber and no ureteral calculi are seen. The bladder is normal in contour. Enlarged prostate measuring approximately 35 x 48 mm. The stomach is grossly distended. Multiple dilated small bowel loops are noted involving the mid and lower quadrants of the abdomen, measuring up to 7.3 cm, with transition seen at mid abdomen showing few collapsed small bowel loops with mildly thickened wall. Distal small bowel loops are collapsed. Post op changes are seen in small bowel loop in mid abdomen and in right lower quadrant. Fat-containing ventral hernia, which shows mild internal fat stranding. No imaging evidence of appendicitis. Abdominal and pelvic vasculature is patent. No adenopathy or fluid collections are seen. No aggressive-appearing osseous lesions are identified. Colonic fecal and gaseous distension. Diffuse atherosclerotic calcification is noted involving the aorta and iliac arteries. Degenerative changes involving the spine are seen in the form of multilevel marginal osteophytes, disc space reduction, and facetal arthrosis. IMPRESSION: 1. Uncomplicated cholelithiasis, stable. 2. The stomach is grossly distended, stable. 3. Multiple dilated small bowel loops are noted involving the mid and lower quadrants of the abdomen, measuring up to 7.3 cm, with transition seen at mid abdomen showing few collapsed small bowel loops with mildly thickened wall- possibility of stricture. Features suggestive of small bowel obstruction. New finding. 4. Post op changes are seen in small bowel loop in mid abdomen and in right lower quadrant- new finding. 5. Fat-containing ventral hernia, which shows mild internal fat stranding, new finding. 6. Colonic fecal and gaseous distension. Electronically signed by Kenton Bush 03-08-2025 06:05 AM KUB X-Ray 03/08/25 14:14 KUB HISTORY: ng came out a little bit. recheck position COMPARISON STUDY: 03/08/2025 FINDINGS: Nasogastric tube tip is in the proximal stomach with the sidehole 3 cm beyond the GE junction, minimally withdrawn compared to prior. There is stable patchy opacity at the left lung base. IMPRESSION: Nasogastric tube as described. ACT 112: Negative or not required by law. The above report was generated using voice recognition software. It may contain grammatical, syntax or spelling errors. Electronically signed by: Bahman Obregon M.D. 03/08/2025 2:35 PM 03/08/25 04:32 CT abd pelvis IV con only Stat Pending Results Patient Have Any Pending Studies at Discharge: No Discharge Instructions Given to Patient (Per Discharging Provider) as per discharge summary Total Time Total Time Spent Total Time Spent (In Minutes): 45 minutes
[2025-03-13 08:36] VITALS: RESP 18
[2025-03-13 12:29] VITALS: PULSE 75; TEMP 97.8; O2SAT 97
[2025-03-13 13:30] VITALS: BP 117/69
== END 2025-03-13 15:24 | DRG 389 ==
LOC: ED 03:39 → EDINP 11:03 → 2W 11:18